=== PATIENT | female | born 1985 | race Caucasian/White ===

== ENCOUNTER 2016-09-27 19:12 | Emergency (ER) | payer OTHER ==
[~2016-09-27] VITALS: Ht 170.2 cm; Wt 101.6 kg
[~2016-09-27 19:12] MED LIST: HYDR-4332 PO; METO-157 PO; NRN100 PO
[2016-09-27 19:18] VITALS: Ht 170.2 cm; Wt 101.6 kg
[2016-09-27] MEDS ORDERED: PROCHLORPERAZINE INJ 10 MG in SYRINGE 8 ML IV STA (19:28)
[2016-09-27] MEDS ORDERED: LORAZEPAM 2 MG/ML 1 ML VIAL IV STA (19:28)
[2016-09-27] MEDS ORDERED: DiphenhydrAMINE HCL 50 MG/ML VIAL IV STA (19:28)
[2016-09-27] MEDS ORDERED: SODIUM CHLORIDE 0.9% 1000ML 1,000 ML IV STA (19:28)
[2016-09-27] MEDS ORDERED: PANTOprazole INJ 80 MG in DEXTROSE 5% 100ML 100 ML IV STA (19:28)
[2016-09-27] MEDS ORDERED: DEXAMETHASONE SOD INJ 10 MG/ML VIAL IV ONE (19:30)
--- NOTE | 2016-09-27 19:38 | EMERGENCY ROOM VISIT NOTE ---
History Report prepared by Inocencia: Willie Tovar Under the Supervision of: Dr. Clement Temple M.D. First contact with patient: 19:21 Chief Complaint: HEADACHE Stated Complaint: MIGRAINE ON 6TH DAY, THROWING UP BLOOD History of Present Illness The patient is a 31 year old female who presents to the Emergency Room with complaints of persistent migraines beginning a few days ago. She notes that her pain is behind her eyes and goes behind the right side of her brain. She notes it feels like "liquid in her head". She states she began vomiting blood today with some clots in the blood. She denies any bleeding or ulcers in the past, and she does not take blood thinners. She admits to having dark stools and weakness, but denies any abdominal pain. Source of History: patient Onset: a few days ago Position: head Quality: other ("feels like liquid in the head") Timing: other (persistent) Associated Symptoms: + vomiting (with blood), + weakness, No abdominal pain Note: The patient admits to having dark stools recently. Review of Systems See HPI for pertinent positives & negatives. A total of 10 systems reviewed and were otherwise negative. Past Medical & Surgical Medical Problems: (1) Anxiety disorder (2) Asthma (3) Cocaine use (4) Illicit drug use (5) Moderate recurrent major depression (6) Ovarian cyst (7) Pituitary adenoma (8) Spondylolisthesis, lumbar region (9) Suicidal ideations (10) Tonsillectomy and adenoidectomy Surgical Problems: (1) History of back surgery (2) History of tubal ligation (3) s p ORIF right tibia fx (4) s p sinus surgery (5) s p tonsillectomy Family History Diabetes mellitus Kidney disease Social History Smoking Status: Current Every Day Smoker Alcohol Use: occasionally Drug Use: none Marital Status: single Housing Status: lives alone Occupation Status: unemployed, disabled Current/Historical Medications Scheduled Bromocriptine Mesylate (Bromocriptine Mesylate), 2.5 MG PO DAILY Bupropion HCl (Bupropion HCl Sr), 150 MG PO BID Cephalexin Monohydrate (Keflex), 500 MG PO QID Citalopram (Citalopram Hydrobromide), 1 TAB PO DAILY Gabapentin (Gabapentin), 300 MG PO TID Ranitidine (Zantac), 150 MG PO BID Scheduled PRN Lorazepam (Lorazepam), 1 MG PO BID PRN for Anxiety Allergies Coded Allergies: Aspirin (Verified Allergy, Severe, SEVERE REACTION TO ANOTHER MEDICATION PT TAKES, 09/12/16) Ranitidine (Verified Allergy, Severe, HIVES, 09/12/16) Ibuprofen (Verified Allergy, Intermediate, rash, 09/12/16) Sulfa Antibiotics (Verified Allergy, Intermediate, HIVES AND ITCHING, ) Clindamycin (Verified Allergy, Unknown, Rash., 09/12/16) Physical Exam Vital Signs Date Time Temp Pulse Resp B/P Pulse Ox O2 Delivery O2 Flow Rate FiO2 09/27/16 20:46 37.1 104 20 99/72 97 09/27/16 19:18 37.1 131 20 107/76 98 Room Air Physical Exam GENERAL: Patient is in no acute distress. HEENT: No acute trauma, normocephalic atraumatic, mucous membranes moist, no nasal congestion, no scleral icterus. Pupils equal and reactive to light. NECK: No stridor, no adenopathy, no meningismus, trachea is midline. LUNGS: Clear to auscultation bilaterally, no wheeze, no rhonchi, breath sounds equal. HEART: Without murmurs gallops or rubs, regular rate and rhythm. ABDOMEN: Soft, mildly tender in the epigastrium, bowel sounds positive, no hernias, no peritonitis. EXTREMITIES: No cyanosis or edema, full range of motion of all the joints without pain or difficulty, no signs for acute trauma. NEUROLOGIC: Oriented x 3, no acute motor or sensory deficits, no focal weakness. No cerebellar deficits. SKIN: No rash, no jaundice, no diaphoresis RECTAL: Brown stool, trace heme positive. Medical Decision & Procedures Laboratory Results 09/27/16 19:42 Red Blood Count 4.54, Mean Corpuscular Volume 87.4, Mean Corpuscular Hemoglobin 28.6, Mean Corpuscular Hemoglobin Concent 32.7, Mean Platelet Volume 10.9, Neutrophils (%) (Auto) 65.5, Lymphocytes (%) (Auto) 27.2, Monocytes (%) (Auto) 3.6, Eosinophils (%) (Auto) 3.1, Basophils (%) (Auto) 0.4, Neutrophils # (Auto) 7.92, Lymphocytes # (Auto) 3.29, Monocytes # (Auto) 0.43, Eosinophils # (Auto) 0.37, Basophils # (Auto) 0.05 09/27/16 19:42 Test 09/27/16 19:42 White Blood Count 12.08 K/uL (4.8-10.8) Red Blood Count 4.54 M/uL (4.2-5.4) Hemoglobin 13.0 g/dL (12.0-16.0) Hematocrit 39.7 % (37-47) Mean Corpuscular Volume 87.4 fL (80-100) Mean Corpuscular Hemoglobin 28.6 pg (25-34) Mean Corpuscular Hemoglobin Concent 32.7 g/dl (32-36) Platelet Count 319 K/uL (130-400) Mean Platelet Volume 10.9 fL (7.4-10.4) Neutrophils (%) (Auto) 65.5 % Lymphocytes (%) (Auto) 27.2 % Monocytes (%) (Auto) 3.6 % Eosinophils (%) (Auto) 3.1 % Basophils (%) (Auto) 0.4 % Neutrophils # (Auto) 7.92 K/uL (1.4-6.5) Lymphocytes # (Auto) 3.29 K/uL (1.2-3.4) Monocytes # (Auto) 0.43 K/uL (0.11-0.59) Eosinophils # (Auto) 0.37 K/uL (0-0.5) Basophils # (Auto) 0.05 K/uL (0-0.2) RDW Standard Deviation 43.7 fL (36.4-46.3) RDW Coefficient of Variation 13.7 % (11.5-14.5) Immature Granulocyte % (Auto) 0.2 % Immature Granulocyte # (Auto) 0.02 K/uL (0.00-0.02) Prothrombin Time 11.2 SECONDS (9.0-12.0) Prothromb Time International Ratio 1.0 (0.9-1.1) Activated Partial Thromboplast Time 29.6 SECONDS (21.0-31.0) Partial Thromboplastin Ratio 1.1 Anion Gap 12.0 mmol/L (3-11) Est Creatinine Clear Calc Drug Dose 114.5 ml/min Estimated GFR () 102.2 Estimated GFR (Non- 88.2 BUN/Creatinine Ratio 7.2 (10-20) Calcium Level 8.9 mg/dl (8.5-10.1) Total Bilirubin 0.2 mg/dl (0.2-1) Aspartate Amino Transf (AST/SGOT) 29 U/L (15-37) Alanine Aminotransferase (ALT/SGPT) 22 U/L (12-78) Alkaline Phosphatase 99 U/L (45-117) Total Protein 6.9 gm/dl (6.4-8.2) Albumin 3.2 gm/dl (3.4-5.0) Globulin 3.7 gm/dl (2.5-4.0) Albumin/Globulin Ratio 0.9 (0.9-2) Laboratory results reviewed by me. Medications Administered Medications (Trade) Dose Ordered Sig/Jesse Route Start Time Stop Time Status Last Admin Dose Admin Prochlorperazine Edisylate/Syringe (Compazine Inj/ Syringe) 10 ml @ 5 mls/min NOW STAT IV 09/27/16 19:28 09/27/16 19:34 DC 09/27/16 20:02 5 MLS/MIN Diphenhydramine HCl 50 mg 50 mg NOW STAT IV 09/27/16 19:28 09/27/16 19:34 DC 09/27/16 20:02 50 MG Sodium Chloride (Nss 1000ml) 1,000 ml @ 999 mls/hr Q1H1M STAT IV 09/27/16 19:28 09/27/16 20:28 DC 09/27/16 20:02 999 MLS/HR Dexamethasone Sodium Phosphate (Decadron Inj) 10 mg NOW ONCE IV 09/27/16 19:30 09/27/16 19:34 DC 09/27/16 20:03 10 MG Lorazepam 0.5 mg 0.5 mg NOW STAT IV 09/27/16 19:28 09/27/16 19:35 DC 09/27/16 20:03 0.5 MG Pantoprazole Sodium/Dextrose (Protonix Inj/D5 100ml) 120 ml @ 400 mls/hr NOW STAT IV 09/27/16 19:28 09/27/16 19:45 DC 09/27/16 20:02 400 MLS/HR Cephalexin Monohydrate (Keflex Cap) 500 mg NOW STAT PO 1/10/17 20:33 09/27/16 20:34 DC 09/27/16 20:44 500 MG ED Course 1922: The patient was evaluated in room C2. A complete history and physical exam was performed. 1927: Ordered Pantoprazole Sodium 80 mg/Dextrose 120 ml @ 400 mls/hr IV, Ativan Inj 0.5 mg IV, NSS 1,000 ml @ 999 mls/hr IV, Benadryl Inj 50 mg IV, and Prochlorperazine Edisylate 10 mg/Syringe 10 ml @ 5 ml/min IV. 1929: Ordered Decadron Inj 10 mg IV. 2029: I reassessed the patient. She thinks she has a urinary infection because it rey during urination and her urine smells bad. 2032: Ordered Keflex Cap 500 mg PO. 2034: The patient now wants to go home without any urine dip. 2039: Reevaluated the patient. Discussed results and discharge instructions: She verbalized understanding and agreement. The patient is ready for discharge. Medical Decision Differentials include Tara/Valentin tear, ulcer, gastritis, dehydration, anemia , electrolyte imbalance, migraine headache, tension headache, meningitis, and intracranial bleed. There is a mild leukocytosis which is often baseline for the patient, no worrisome anemia. No significant electrolyte abnormality, kidney failure or hepatitis. There is no coagulopathy. Rectal exam shows brown stool which is only trace heme-positive. On exam, there were no focal neurologic deficits. The patient was not toxic or febrile. There was no meningismus. The patient received IV saline, IV Compazine, IV Benadryl, IV Decadron and IV Ativan. She feels improved, her heart rate has improved. The patient was complaining of urinary symptoms as well, she's had these for a few days. She refused to give a urine sample and was asking for medication to treat her urinary infection. She actually was asking for discharge. She said that she had to leave and could not stay any longer. The patient was given a dose of oral Keflex, she was given IV Protonix. She is being discharged on Zantac. The patient was also given a prescription for Keflex. She was encouraged to rest and to stay well-hydrated. I suspect that she has a migraine which caused vomiting and then a Tara-Valentin tear. She was instructed to return for worsening symptoms. Impression Primary Impression: Headache Additional Impressions: Hematemesis UTI (urinary tract infection) Scribe Attestation The scribe's documentation has been prepared under my direction and personally reviewed by me in its entirety. I confirm that the note above accurately reflects all work, treatment, procedures, and medical decision making performed by me. Departure Information Dispostion Home / Self-Care Prescriptions Ranitidine (Zantac) 150 Mg Tab 150 MG PO BID for 30 Days, #60 TAB Prov: Clement Temple M.D. 09/27/16 Cephalexin Monohydrate (Keflex) 500 Mg Cap 500 MG PO QID, #20 CAP Prov: Clement Temple M.D. 09/27/16 Referrals No Doctor, Assigned (PCP) Patient Instructions A Signature Page, [facility] Additional Instructions rest fluids sleep zantac 2x per day for 2 weeks return if worsening keflex 4x per day for 5 days lab testing today was all ok use vasoline to the rectal area as we discussed Problem Qualifiers
[2016-09-27 19:50] LABS: BASO % 0.4 %; BASO ABS # 0.05 K/uL (0-0.2); COMPLETE YES; EOS % 3.1 %; HEMATOCRIT 39.7 % (37-47); IG% 0.2 %; LYMPH % 27.2 %; LYMPH ABS # 3.29 K/uL (1.2-3.4); MEAN CELL VOLUME 87.4 fL (80-100); MEAN CORPUSCULAR HEMOGLOBIN 28.6 pg (25-34); MEAN CORPUSCULAR HGB CONC 32.7 g/dl (32-36); MEAN PLATELET VOLUME 10.9 fL (7.4-10.4); MONO % 3.6 %; NEUT % 65.5 %; PLATELET COUNT 319 K/uL (130-400); RED BLOOD COUNT 4.54 M/uL (4.2-5.4); WHITE BLOOD COUNT 12.08 K/uL (4.8-10.8)
[2016-09-27 20:00] LABS: PARTIAL THROMBOPLASTIN RATIO 1.1; PROTHROMBIN TIME (PATIENT) 11.2 SECONDS (9.0-12.0)
[2016-09-27 20:07] LABS: BUN/CREATININE RATIO 7.2 (10-20); CALCIUM 8.9 mg/dl (8.5-10.1); CREATININE 0.88 mg/dl (0.60-1.20); POTASSIUM 3.4 mmol/L (3.5-5.1)
[2016-09-27 20:10] LABS: ALB/GLOB RATIO 0.9 (0.9-2)
[2016-09-27] MEDS ORDERED: CEPHALEXIN MONOHYDRATE 250 MG CAP PO STA (20:33)
[2016-09-27] MEDS ORDERED: ZNTT/150 PO (20:38)
[2016-09-27] MEDS ORDERED: CEPH500C PO (20:38)
[2016-09-27 20:46] VITALS: BP 99/72; PULSE 104; TEMP 37.1; O2SAT 97
[2016-11-28] MEDS ORDERED: CITA40TA4 PO (13:13)
== END 2016-09-27 20:47 | disposition home or self-care (01) ==
LOC: C.EDB 19:14 → C.EDC 20:47
DX: R51 Headache (principal); K92.0 Hematemesis; N39.0 Urinary tract infection, site not specified; F41.9 Anxiety disorder, unspecified; F32.9 Major depressive disorder, single episode, unspecified; N83.209 Unspecified ovarian cyst, unspecified side; J45.909 Unspecified asthma, uncomplicated; F17.200 Nicotine dependence, unspecified, uncomplicated; Z98.51 Tubal ligation status; Z98.890 Other specified postprocedural states; Z88.2 Allergy status to sulfonamides; Z88.6 Allergy status to analgesic agent; Z88.8 Allergy status to other drugs, medicaments and biological substances

== ENCOUNTER 2016-10-05 22:48 | Emergency (ER) | payer OTHER ==
[~2016-10-05] VITALS: Ht 170.2 cm; Wt 105.0 kg
[~2016-10-05 22:48] MED LIST changes: +CEPH500C PO; -HYDR-4332 PO; -METO-157 PO; +ZNTT/150 PO
[2016-10-05 22:49] VITALS: TEMP 36.7; Ht 170.2 cm; Wt 105.0 kg
[2016-10-05] MEDS ORDERED: ONDANSETRON INJ 2 MG/ML 2 ML VIAL IV STA (22:56)
[2016-10-05] MEDS ORDERED: SODIUM CHLORIDE 0.9% 1000ML 1,000 ML IV STA (22:56)
--- NOTE | 2016-10-05 23:13 | EMERGENCY ROOM VISIT NOTE ---
History Report prepared by Inocencia: Hannah uPente Under the Supervision of: Dr. Tutu Her D.O. First contact with patient: 22:51 Chief Complaint: RECTAL BLEEDING Stated Complaint: RECTAL BLEEDING, VOMITING BLOOD Nursing Triage Summary: patient states for past two weeks she has had episodes of bright red blood in her stool and vomiting blood. patient states she was seen here two weeks ago for same complaints. also having abdominal cramping. History of Present Illness The patient is a 31 year old female who presents to the Emergency Room with complaints of intermittent rectal bleeding for the past two weeks. She reports episodes of bright red blood in her stool. Today her bowel movements were just blood, without any stool present. She is also experiencing nausea, vomiting, hematemesis, ear pain, and back pain. She has had a migraine for the past two weeks that has been constant. The patient was evaluated in the ED two weeks ago for her headache. She was treated for a UTI at that time and discharged home. The patient had a colonoscopy two years ago. She denies taking any NSAIDs recently. Her LNMP was 2 weeks ago. Source of History: patient Onset: 2 weeks ago Position: other (rectum) Quality: other (bleeding) Timing: intermittent Associated Symptoms: + back pain, + headache, + nausea, + vomiting (with hematemesis) Review of Systems See HPI for pertinent positives & negatives. A total of 10 systems reviewed and were otherwise negative. Past Medical & Surgical Medical Problems: (1) Anxiety disorder (2) Asthma (3) Cocaine use (4) Illicit drug use (5) Moderate recurrent major depression (6) Ovarian cyst (7) Pituitary adenoma (8) Spondylolisthesis, lumbar region (9) Suicidal ideations (10) Tonsillectomy and adenoidectomy Surgical Problems: (1) History of back surgery (2) History of tubal ligation (3) s p ORIF right tibia fx (4) s p sinus surgery (5) s p tonsillectomy Family History Diabetes mellitus Kidney disease Social History Smoking Status: Current Every Day Smoker Alcohol Use: occasionally Drug Use: none Marital Status: single Housing Status: lives alone Occupation Status: unemployed, disabled Current/Historical Medications Scheduled Bromocriptine Mesylate (Bromocriptine Mesylate), 2.5 MG PO DAILY Bupropion HCl (Bupropion HCl Sr), 150 MG PO BID Cephalexin Monohydrate (Keflex), 500 MG PO QID Citalopram (Citalopram Hydrobromide), 1 TAB PO DAILY Gabapentin (Gabapentin), 300 MG PO TID Pantoprazole (Protonix), 40 MG PO DAILY Scheduled PRN Lorazepam (Lorazepam), 1 MG PO BID PRN for Anxiety Allergies Coded Allergies: Aspirin (Verified Allergy, Severe, SEVERE REACTION TO ANOTHER MEDICATION PT TAKES, 10/05/16) Ranitidine (Verified Allergy, Severe, HIVES, 10/05/16) Ibuprofen (Verified Allergy, Intermediate, rash, 10/05/16) Sulfa Antibiotics (Verified Allergy, Intermediate, HIVES AND ITCHING, 10/05) Clindamycin (Verified Allergy, Unknown, Rash., 09/12/16) Physical Exam Vital Signs Date Time Temp Pulse Resp B/P Pulse Ox O2 Delivery O2 Flow Rate FiO2 10/06/16 01:40 73 20 119/63 98 10/06/16 00:45 94 20 129/82 98 Room Air 10/05/16 23:00 112 10/05/16 22:49 36.7 100 20 127/90 98 Room Air Physical Exam GENERAL: Patient is awake, alert, and in no acute distress. Patient is resting comfortably and showing no signs of anxiety EYES: The conjunctivae are clear. The pupils are round and reactive. EARS, NOSE, MOUTH AND THROAT: The nose is without any evidence of any deformity. Mucous membranes are moist tongue is midline NECK: The neck is nontender and supple. RESPIRATORY: Normal respiratory effort is noted there is no evidence of wheezing rhonchi or rales CARDIOVASCULAR: Tachycardic rate and regular rhythm noted there no murmurs rubs or gallops normal S1 normal S2 GASTROINTESTINAL: The abdomen is soft. Bowel sounds are present in all quadrants. Abdomen is nontender RECTAL: Light brown stool, heme-negative. MUSCULOSKELETAL/EXTREMITIES: There is no evidence of gross deformity full range of motion is noted in the hips and shoulders SKIN: There is no obvious evidence of any rash. There are no petechiae, pallor or cyanosis noted. NEUROLOGIC: Patient is awake alert and oriented x3 Medical Decision & Procedures ER Provider Diagnostic Interpretation: 2-view x-ray of the abdomen as interpreted by myself reveals no acute infiltrate , no free air, non-specific bowel-gas pattern, no signs of obstruction. Laboratory Results 10/05/16 23:30 Red Blood Count 4.45, Mean Corpuscular Volume 87.2, Mean Corpuscular Hemoglobin 29.0, Mean Corpuscular Hemoglobin Concent 33.2, Mean Platelet Volume 11.2, Neutrophils (%) (Auto) 68.3, Lymphocytes (%) (Auto) 24.5, Monocytes (%) (Auto) 3.6, Eosinophils (%) (Auto) 3.0, Basophils (%) (Auto) 0.3, Neutrophils # (Auto) 9.00, Lymphocytes # (Auto) 3.22, Monocytes # (Auto) 0.47, Eosinophils # (Auto) 0.39, Basophils # (Auto) 0.04 10/05/16 23:30 Test 10/05/16 23:30 10/06/16 00:00 White Blood Count 13.16 K/uL (4.8-10.8) Red Blood Count 4.45 M/uL (4.2-5.4) Hemoglobin 12.9 g/dL (12.0-16.0) Hematocrit 38.8 % (37-47) Mean Corpuscular Volume 87.2 fL (80-100) Mean Corpuscular Hemoglobin 29.0 pg (25-34) Mean Corpuscular Hemoglobin Concent 33.2 g/dl (32-36) Platelet Count 278 K/uL (130-400) Mean Platelet Volume 11.2 fL (7.4-10.4) Neutrophils (%) (Auto) 68.3 % Lymphocytes (%) (Auto) 24.5 % Monocytes (%) (Auto) 3.6 % Eosinophils (%) (Auto) 3.0 % Basophils (%) (Auto) 0.3 % Neutrophils # (Auto) 9.00 K/uL (1.4-6.5) Lymphocytes # (Auto) 3.22 K/uL (1.2-3.4) Monocytes # (Auto) 0.47 K/uL (0.11-0.59) Eosinophils # (Auto) 0.39 K/uL (0-0.5) Basophils # (Auto) 0.04 K/uL (0-0.2) RDW Standard Deviation 43.8 fL (36.4-46.3) RDW Coefficient of Variation 13.7 % (11.5-14.5) Immature Granulocyte % (Auto) 0.3 % Immature Granulocyte # (Auto) 0.04 K/uL (0.00-0.02) Prothrombin Time 10.5 SECONDS (9.0-12.0) Prothromb Time International Ratio 1.0 (0.9-1.1) Activated Partial Thromboplast Time 29.3 SECONDS (21.0-31.0) Partial Thromboplastin Ratio 1.1 Anion Gap 11.0 mmol/L (3-11) Est Creatinine Clear Calc Drug Dose 134.9 ml/min Estimated GFR () 122.0 Estimated GFR (Non- 105.3 BUN/Creatinine Ratio 10.3 (10-20) Calcium Level 8.7 mg/dl (8.5-10.1) Total Bilirubin 0.1 mg/dl (0.2-1) Direct Bilirubin < 0.1 mg/dl (0-0.2) Aspartate Amino Transf (AST/SGOT) 12 U/L (15-37) Alanine Aminotransferase (ALT/SGPT) 11 U/L (12-78) Alkaline Phosphatase 90 U/L (45-117) Total Protein 6.4 gm/dl (6.4-8.2) Albumin 3.0 gm/dl (3.4-5.0) Lipase 142 U/L (73-393) Human Chorionic Gonadotropin, Qual NEG (NEG) Urine Color YELLOW Urine Appearance CLEAR (CLEAR) Urine pH 5.0 (4.5-7.5) Urine Specific [place] 1.008 (1.000-1.030) Urine Protein NEG (NEG) Urine Glucose (UA) NEG (NEG) Urine Ketones NEG (NEG) Urine Occult Blood NEG (NEG) Urine Nitrite POS (NEG) Urine Bilirubin NEG (NEG) Urine Urobilinogen NEG (NEG) Urine Leukocyte Esterase SMALL (NEG) Urine WBC (Auto) 10-30 /hpf (0-5) Urine RBC (Auto) 0-4 /hpf (0-4) Urine Hyaline Casts (Auto) 1-5 /lpf (0-5) Urine Epithelial Cells (Auto) >30 /lpf (0-5) Urine Bacteria (Auto) 4+ (NEG) Laboratory results per my review. Medications Administered Medications (Trade) Dose Ordered Sig/Jesse Route Start Time Stop Time Status Last Admin Dose Admin Sodium Chloride (Nss 1000ml) 1,000 ml @ 999 mls/hr Q1H1M STAT IV 10/05/16 22:56 10/05/16 23:56 DC 10/05/16 23:24 999 MLS/HR Ondansetron HCl (Zofran Inj) 4 mg NOW STAT IV 10/05/16 22:56 10/05/16 22:57 DC 10/05/16 23:24 4 MG Ceftriaxone Sodium (Rocephin Inj) 1 gm NOW STAT IV 10/06/16 00:56 10/06/16 00:57 DC 10/06/16 01:08 1 GM Pantoprazole Sodium (Protonix Tab) 40 mg NOW STAT PO 10/06/16 00:56 10/06/16 00:57 DC 10/06/16 01:08 40 MG ED Course 2251: The patient was evaluated in room C11B. A complete history and physical examination were performed. 2256: Zofran 4 mg IV, NSS 1000 ml @ 999 mls/hr IV 0056: Protonix 40 mg PO, Rocephin 1 gm IV 0100: I reassessed the patient at this time. She is feeling better and resting comfortably. I discussed the results and treatment plan with the patient. I answered all pertaining questions that she had. She expressed understanding and verbalized agreement. The patient will be discharged home. Medical Decision Differential diagnosis: Etiologies such as diverticulosis, AVM, coagulopathy, colitis, inflammatory bowel disease, malignancy, Tara-Valentin tear, esophagitis, peptic ulcer disease , variceal bleed, gastritis, epistaxis, fissure, hemorrhoids, as well as others were entertained. Nursing notes reviewed. Patient's previous electronic medical records reviewed. The patient is a 31-year-old female who presented to emergency department for multiple complaints. She complained of abdominal pain and rectal bleeding blood in her vomit headache as well as low back pain. The patient was seen in our facility for similar complaints recently. On physical exam she did not have any signs of rectal bleeding. She was mildly tachycardic but she was not anemic. She was found have signs of urinary tract infection on urinalysis. She states that she was told she had a urinary tract infection on her previous visit but states she was not given an antibiotic. It would appear that she may have not fill this prescription. I discussed the patient's laboratory and radiographic studies with her. She was treated with IV fluids as well as IV antiemetics. She was also given IV antibiotics. She was encouraged to rest and avoid any strenuous activity. She was encouraged to call her primary care physician to schedule follow-up appointment. She was also encouraged to return to the emergency department immediately if symptoms change worsen or the need arises. Impression Primary Impression: Rectal bleeding Additional Impression: UTI (urinary tract infection) Scribe Attestation The scribe's documentation has been prepared under my direction and personally reviewed by me in its entirety. I confirm that the note above accurately reflects all work, treatment, procedures, and medical decision making performed by me. Departure Information Dispostion Home / Self-Care Prescriptions Pantoprazole (Protonix) 40 Mg Tab 40 MG PO DAILY, #30 TAB Prov: Tutu Her, DO 10/06/16 Cephalexin Monohydrate (KEFLEX) 500 Mg Cap 500 MG PO QID, #28 CAP Prov: Tutu Her, DO 10/06/16 Referrals Yamel Beavers D.O. (PCP) Vel Wang MD Forms HOME CARE DOCUMENTATION FORM, IMPORTANT VISIT INFORMATION, WORK / SCHOOL INSTRUCTIONS Patient Instructions GI Bleeding - [facility], [facility], Urinary Tract Infection - [facility] Problem Qualifiers Additional Impression: UTI (urinary tract infection) Urinary tract infection type: site unspecified Hematuria presence: without hematuria Qualified Codes: N39.0 - Urinary tract infection, site not specified
[2016-10-05] MEDS ORDERED: ZNTT/150 PO (23:29)
[2016-10-05 23:48] LABS: BASO % 0.3 %; BASO ABS # 0.04 K/uL (0-0.2); COMPLETE YES; HEMATOCRIT 38.8 % (37-47); IG% 0.3 %; LYMPH % 24.5 %; LYMPH ABS # 3.22 K/uL (1.2-3.4); MEAN CELL VOLUME 87.2 fL (80-100); MEAN CORPUSCULAR HGB CONC 33.2 g/dl (32-36); MEAN PLATELET VOLUME 11.2 fL (7.4-10.4); MONO % 3.6 %; NEUT % 68.3 %; PLATELET COUNT 278 K/uL (130-400); RED BLOOD COUNT 4.45 M/uL (4.2-5.4); WHITE BLOOD COUNT 13.16 K/uL (4.8-10.8)
[2016-10-06 00:02] LABS: PARTIAL THROMBOPLASTIN RATIO 1.1; PROTHROMBIN TIME (PATIENT) 10.5 SECONDS (9.0-12.0)
[2016-10-06 00:09] LABS: ALT/SGPT 11 U/L (12-78); BLOOD UREA NITROGEN 8 mg/dl (7-18); BUN/CREATININE RATIO 10.3 (10-20); CALCIUM 8.7 mg/dl (8.5-10.1); CARBON DIOXIDE 23 mmol/L (21-32); CHLORIDE 107 mmol/L (98-107); CREATININE 0.76 mg/dl (0.60-1.20); GLUCOSE 92 mg/dl (70-99); POTASSIUM 3.9 mmol/L (3.5-5.1); SODIUM 141 mmol/L (136-145)
[2016-10-06 00:11] LABS: ALKALINE PHOSPHATASE 90 U/L (45-117); AST/SGOT 12 U/L (15-37)
[2016-10-06 00:27] LABS: PREG INTERNAL NEGATIVE QC NEG CLEAR BACKGROUND; PREG INTERNAL POSITIVE QC POS CONTROL LINE
[2016-10-06 00:42] LABS: URINE APPEARANCE CLEAR (CLEAR); URINE BILIRUBIN NEG (NEG); URINE COLOR YELLOW; URINE EPITHELIAL CELL AUTO >30 /lpf (0-5); URINE NITRITE POS (NEG); URINE SPECIFIC GRAVITY 1.008 (1.000-1.030); UROBILINOGEN NEG (NEG)
[2016-10-06 00:51] LABS: MANUAL MICROSCOPIC REQUIRED? NO; REVIEW REQ? NO
[2016-10-06] MEDS ORDERED: CEFTRIAXONE SOD INJ 1 GM ADDVIAL IV STA (00:56)
[2016-10-06] MEDS ORDERED: PANTOprazole SOD 40 MG TAB PO STA (00:56)
[2016-10-06] MEDS ORDERED: PANT40TA PO (01:21)
[2016-10-06] MEDS ORDERED: CEPH500C2 PO (01:21)
[2016-10-06 01:40] VITALS: BP 119/63; PULSE 73; O2SAT 98
--- NOTE | 2016-10-06 07:19 | DIAGNOSTIC IMAGING REPORT ---
PA CHEST WITH ABDOMINAL SERIES CLINICAL HISTORY: Generalized abdominal pain of 2 weeks duration. FINDINGS: A PA chest radiograph is compared to study dated 09/12/2016. The cardiomediastinal silhouette is unremarkable. There are low lung volumes with bibasilar atelectasis. The lungs and pleural spaces are otherwise clear. No pneumothorax is seen. The bony thorax is grossly intact. Supine and erect abdominal radiographs are compared to study dated 09/12/2016. There is a nonobstructed abdominal bowel gas pattern noting mild to moderate colonic fecal retention. No intraperitoneal free air is seen. There is no radiographic evidence of nephrolithiasis. Numerous phleboliths are seen in the pelvis. There are postoperative changes from L5 to S1 spinal fusion. The lumbosacral spine and bony pelvis appear intact. IMPRESSION: 1. Low lung volumes with no active disease in the chest. 2. Nonobstructed abdominal bowel gas pattern noting mild to moderate colonic fecal retention. Electronically signed by: Clement Rahman M.D. 10/06/2016 7:17 AM Dictated Date/Time: 10/06/2016 7:15 AM
[2016-11-28] MEDS ORDERED: CITA40TA4 PO (13:13)
== END 2016-10-06 01:42 | disposition home or self-care (01) ==
LOC: EDBD 22:48 → C.EDC 22:50
DX: K62.5 Hemorrhage of anus and rectum (principal); N39.0 Urinary tract infection, site not specified; F41.9 Anxiety disorder, unspecified; R11.2 Nausea with vomiting, unspecified; F33.1 Major depressive disorder, recurrent, moderate; G43.909 Migraine, unspecified, not intractable, without status migrainosus; F17.200 Nicotine dependence, unspecified, uncomplicated; Z86.39 Personal history of other endocrine, nutritional and metabolic disease

== ENCOUNTER 2016-11-01 15:23 | Emergency (ER) | payer OTHER ==
[~2016-11-01] VITALS: Ht 170.2 cm; Wt 102.4 kg
[~2016-11-01 15:23] MED LIST changes: -CEPH500C PO; +CEPH500C2 PO; +PANT40TA PO; -ZNTT/150 PO
[2016-11-01 15:39] VITALS: TEMP 37; Ht 170.2 cm; Wt 102.4 kg
[2016-11-01] MEDS ORDERED: SODIUM CHLORIDE 0.9% 1000ML 1,000 ML IV ONE (17:21)
[2016-11-01] MEDS ORDERED: SODIUM CHLORIDE 0.9% 1000ML 1,000 ML IV STA (17:21)
--- NOTE | 2016-11-01 17:23 | EMERGENCY ROOM VISIT NOTE ---
History Report prepared by Inocencia: Willie Tovar Under the Supervision of: Dr. Willie Camargo M.D. First contact with patient: 17:08 Chief Complaint: ABDOMINAL PAIN Stated Complaint: WEAK, BLEEDING FROM RECTUM, SEIZURE ACTIVITY Nursing Triage Summary: Patient states she had a really high fever this morning (didn't take temp, but knows it was high), C/o mouth being dry and dots everywhere. "massive red blood in by bowell and a mucous" Getting worse in the past few days, stool is soft. Denies Hemmorhoid history. Nausea/vomiting on way here. History of Present Illness The patient is a 31 year old female who presents to the Emergency Room with complaints of persistent rectal bleeding beginning about 1 month ago. She notes there has been blood in her stool in each bowel movement for a month, and states today her stools consisted only of blood. The patient reports having global weakness last night, then started shaking before passing out. She notes being confused and vomiting when she came to. The patient reports having a subjective fever, chest pain, abdominal pain which feels like menstrual cramps, blood in her urine last night, and rectal pain. She states she feels achy all over. She denies having any vaginal bleeding or constipation. The patient reports her last menstrual period was 2 weeks ago, and she denies any chance of . She also denies any past abdominal surgeries, but admits to a history of back surgery. Source of History: patient, spouse/significant other Onset: about 1 month ago Position: other (rectum) Quality: other (rectal bleeding) Timing: other (persistent) Associated Symptoms: + LOC (last night), + abdominal pain, + chest pain, + fevers, + nausea, + urinary symptoms (blood in urine), + vomiting, + weakness Note: The patient reports having rectal pain. She denies any vaginal bleeding or constipation. Review of Systems See HPI for pertinent positives & negatives. A total of 10 systems reviewed and were otherwise negative. Past Medical & Surgical Medical Problems: (1) Anxiety disorder (2) Asthma (3) Cocaine use (4) Illicit drug use (5) Moderate recurrent major depression (6) Ovarian cyst (7) Pituitary adenoma (8) Spondylolisthesis, lumbar region (9) Suicidal ideations (10) Tonsillectomy and adenoidectomy Surgical Problems: (1) History of back surgery (2) History of tubal ligation (3) s p ORIF right tibia fx (4) s p sinus surgery (5) s p tonsillectomy Old medical records were reviewed. Nurse's notes were reviewed and I agree with. Family History Diabetes mellitus Kidney disease Social History Smoking Status: Current Every Day Smoker Alcohol Use: occasionally Drug Use: none Marital Status: single Housing Status: lives alone Occupation Status: unemployed, disabled Current/Historical Medications Scheduled Bromocriptine Mesylate (Bromocriptine Mesylate), 2.5 MG PO DAILY Bupropion HCl (Bupropion HCl Sr), 150 MG PO BID Citalopram (Citalopram Hydrobromide), 1 TAB PO DAILY Gabapentin (Gabapentin), 300 MG PO TID Scheduled PRN Lorazepam (Lorazepam), 1 MG PO BID PRN for Anxiety Allergies Coded Allergies: Aspirin (Verified Allergy, Severe, SEVERE REACTION TO ANOTHER MEDICATION PT TAKES, 11/01/16) Ranitidine (Verified Allergy, Severe, HIVES, 11/01/16) Ibuprofen (Verified Allergy, Intermediate, rash, 11/01/16) Sulfa Antibiotics (Verified Allergy, Intermediate, HIVES AND ITCHING, 11/01) Clindamycin (Verified Allergy, Unknown, Rash., 11/01/16) Physical Exam Vital Signs Date Time Temp Pulse Resp B/P Pulse Ox O2 Delivery O2 Flow Rate FiO2 11/01/16 18:50 88 18 113/76 99 Room Air 11/01/16 17:40 94 18 100/82 97 Room Air 11/01/16 15:39 37.0 108 16 106/71 98 Room Air Physical Exam General: Non ill appearing young female. Well developed well nourished in no acute distress, breathing comfortably on room air. Normal speech HEENT: Normal cephalic atraumatic. Pupils are equal round and reactive to light. Extraocular movements are intact. Oropharynx is pink with moist mucous membranes. No swelling of the mouth lips or tongue. Neck: Supple with a midline trachea. No meningeal signs or stiffness, no JVD or bruits. No Stridor. Chest: Clear to auscultation bilaterally. No wheezes or rhonchi. No increased work of breathing. Heart: regular rate and rhythm. Abdomen: Minimal tenderness in the lower abdomen. Rectal: Patient declined Extremities: No cyanosis clubbing or edema. No calf tenderness or assymetry Spine/Back. Non tender to palpation. No CVA tenderness Skin: Good turgor without rashes. Neurologic exam: Cranial nerves two through 12 are intact. Motor and sensation are intact and symmetrical throughout. Medical Decision & Procedures ER Provider Diagnostic Interpretation: X-ray results as stated below per interpretation by me and the radiologist: CHEST ONE VIEW PORTABLE FINDINGS: Lung volumes are mildly diminished. There is no pneumothorax or pleural effusion. No consolidation is present. Cardiac size is at the upper limits of normal. IMPRESSION: 1. No acute findings. 2. Mildly diminished lung volumes. Electronically signed by: Calvin Ivory M.D. 11/01/2016 6:07 PM Dictated Date/Time: 11/01/2016 6:06 PM Laboratory Results 11/01/16 17:35 Red Blood Count 4.65, Mean Corpuscular Volume 85.8, Mean Corpuscular Hemoglobin 28.8, Mean Corpuscular Hemoglobin Concent 33.6, Mean Platelet Volume 10.7, Neutrophils (%) (Auto) 68.2, Lymphocytes (%) (Auto) 25.1, Monocytes (%) (Auto) 4.1, Eosinophils (%) (Auto) 2.1, Basophils (%) (Auto) 0.3, Neutrophils # (Auto) 8.26, Lymphocytes # (Auto) 3.05, Monocytes # (Auto) 0.50, Eosinophils # (Auto) 0.26, Basophils # (Auto) 0.04 11/01/16 17:35 Test 11/01/16 17:35 11/01/16 17:50 White Blood Count 12.13 K/uL (4.8-10.8) Red Blood Count 4.65 M/uL (4.2-5.4) Hemoglobin 13.4 g/dL (12.0-16.0) Hematocrit 39.9 % (37-47) Mean Corpuscular Volume 85.8 fL (80-100) Mean Corpuscular Hemoglobin 28.8 pg (25-34) Mean Corpuscular Hemoglobin Concent 33.6 g/dl (32-36) Platelet Count 269 K/uL (130-400) Mean Platelet Volume 10.7 fL (7.4-10.4) Neutrophils (%) (Auto) 68.2 % Lymphocytes (%) (Auto) 25.1 % Monocytes (%) (Auto) 4.1 % Eosinophils (%) (Auto) 2.1 % Basophils (%) (Auto) 0.3 % Neutrophils # (Auto) 8.26 K/uL (1.4-6.5) Lymphocytes # (Auto) 3.05 K/uL (1.2-3.4) Monocytes # (Auto) 0.50 K/uL (0.11-0.59) Eosinophils # (Auto) 0.26 K/uL (0-0.5) Basophils # (Auto) 0.04 K/uL (0-0.2) RDW Standard Deviation 45.0 fL (36.4-46.3) RDW Coefficient of Variation 14.4 % (11.5-14.5) Immature Granulocyte % (Auto) 0.2 % Immature Granulocyte # (Auto) 0.02 K/uL (0.00-0.02) Urine Color YELLOW Urine Appearance CLEAR (CLEAR) Urine pH 7.0 (4.5-7.5) Urine Specific [place] 1.004 (1.000-1.030) Urine Protein NEG (NEG) Urine Glucose (UA) NEG (NEG) Urine Ketones NEG (NEG) Urine Occult Blood NEG (NEG) Urine Nitrite NEG (NEG) Urine Bilirubin NEG (NEG) Urine Urobilinogen NEG (NEG) Urine Leukocyte Esterase NEG (NEG) Urine Test NEG (NEG) Anion Gap 10.0 mmol/L (3-11) Est Creatinine Clear Calc Drug Dose 129.7 ml/min Estimated GFR () 118.2 Estimated GFR (Non- 102.0 BUN/Creatinine Ratio 10.6 (10-20) Calcium Level 8.4 mg/dl (8.5-10.1) Total Bilirubin 0.2 mg/dl (0.2-1) Direct Bilirubin < 0.1 mg/dl (0-0.2) Aspartate Amino Transf (AST/SGOT) 12 U/L (15-37) Alanine Aminotransferase (ALT/SGPT) 16 U/L (12-78) Alkaline Phosphatase 85 U/L (45-117) Total Protein 6.8 gm/dl (6.4-8.2) Albumin 3.3 gm/dl (3.4-5.0) Lipase 144 U/L (73-393) Bedside Troponin I 0.000 ng/ml (0-0.045) Laboratory studies as stated above per my review. Medications Administered Medications (Trade) Dose Ordered Sig/Jesse Route Start Time Stop Time Status Last Admin Dose Admin Sodium Chloride 1,000 ml @ 999 mls/hr Q1H1M STAT IV 11/01/16 17:21 11/01/16 18:21 DC 11/01/16 17:21 999 MLS/HR Sodium Chloride (Nss 1000ml) 1,000 ml @ 150 mls/hr Q6H40M ONCE IV 11/01/16 17:21 11/01/16 21:05 DC 11/01/16 17:21 150 MLS/HR Lorazepam (Ativan Inj) 1 mg NOW STAT IV 11/01/16 18:39 11/01/16 18:40 DC 11/01/16 18:52 1 MG ECG Indication: abdominal pain Rate (beats per minute): 98 Rhythm: normal sinus Findings: no acute ischemic change, no ectopy, other (LVH; nonspecific T wave abnormality) Comparison ECG Date: August 19, 2016 Change: Nonspecific T wave abnormality improved. ED Course 171: Past medical records reviewed. The patient was evaluated in room B10, and a complete history and physical examination were performed. 1721: Ordered NSS 1,000 ml @ 150 mls/hr IV, and NSS 1,000 ml @ 999 mls/hr IV. 1830: The patient requested something for her body shakes. 183: Ordered Ativan Inj 1 mg IV. 0: Upon reevaluation, the patient eloped without telling us and was unable to give discharge instructions Medical Decision Differentials include GI bleed, anemia, infection, colitis, arrhythmia, and electrolyte or metabolic abnormality. This patient comes in as described above she has multiple different complaints. She is complaining of rectal bleeding. She's had similar abdominal pain and she felt strange last night as well. She is afebrile at present. She looks well and she has stable vital signs. IV access was established and she was hydrated with IV normal saline. She asked for something for muscle spasms and was given Ativan 1 mg IV. She is not driving. Her white count is minimally elevated. She has nothing to suggest infection. Her abdomen does not have peritonitis or surgical findings. Her hemoglobin is normal .she is not . She has no acute electrode or metabolic abnormalities. She has nothing to suggest infection or liver or gallbladder abnormalities. I did order a CAT scan of her abdomen to rule out colitis and other etiologies as she had multiple different complaints. The patient was agreeable with this. Later however, the nurse called me and told me she declined and wanted to go home. I went to go discuss this with the patient and she had pulled her IV and eloped without notifying us. I was unable to perform the rectal exam do any further assessment because she left without telling us. Further workup is unavailable due to her leaving. Impression Primary Impression: Rectal bleeding Additional Impression: Lower abdominal pain Scribe Attestation The scribe's documentation has been prepared under my direction and personally reviewed by me in its entirety. I confirm that the note above accurately reflects all work, treatment, procedures, and medical decision making performed by me. Departure Information Dispostion Against Medical Advice Referrals No Doctor, Assigned (PCP) Patient Instructions My [facility] Additional Instructions Rest. Drink plenty of fluids. Return if: Increasing pain, fever chills, worsening of symptoms, increasing bleeding, any new problems or concerns Follow-up with doctor this week for recheck. Problem Qualifiers
[2016-11-01 17:53] LABS: BASO % 0.3 %; BASO ABS # 0.04 K/uL (0-0.2); COMPLETE YES; EOS % 2.1 %; HEMATOCRIT 39.9 % (37-47); IG% 0.2 %; LYMPH % 25.1 %; LYMPH ABS # 3.05 K/uL (1.2-3.4); MEAN CELL VOLUME 85.8 fL (80-100); MEAN CORPUSCULAR HEMOGLOBIN 28.8 pg (25-34); MEAN CORPUSCULAR HGB CONC 33.6 g/dl (32-36); MEAN PLATELET VOLUME 10.7 fL (7.4-10.4); MONO % 4.1 %; NEUT % 68.2 %; PLATELET COUNT 269 K/uL (130-400); RED BLOOD COUNT 4.65 M/uL (4.2-5.4); WHITE BLOOD COUNT 12.13 K/uL (4.8-10.8)
[2016-11-01 18:02] LABS: URINE APPEARANCE CLEAR (CLEAR); URINE BILIRUBIN NEG (NEG); URINE COLOR YELLOW; URINE NITRITE NEG (NEG); URINE SPECIFIC GRAVITY 1.004 (1.000-1.030); UROBILINOGEN NEG (NEG)
[2016-11-01 18:07] LABS: BLOOD UREA NITROGEN 8 mg/dl (7-18); BUN/CREATININE RATIO 10.6 (10-20); CALCIUM 8.4 mg/dl (8.5-10.1); CARBON DIOXIDE 23 mmol/L (21-32); CHLORIDE 110 mmol/L (98-107); CREATININE 0.78 mg/dl (0.60-1.20); GLUCOSE 77 mg/dl (70-99); POTASSIUM 3.8 mmol/L (3.5-5.1); SODIUM 143 mmol/L (136-145)
[2016-11-01 18:08] LABS: MANUAL MICROSCOPIC REQUIRED? NO; REVIEW REQ? NO
--- NOTE | 2016-11-01 18:08 | DIAGNOSTIC IMAGING REPORT ---
CHEST ONE VIEW PORTABLE CLINICAL HISTORY: Chest pain. Weakness. COMPARISON STUDY: Chest radiograph October 05, 2016. FINDINGS: Lung volumes are mildly diminished. There is no pneumothorax or pleural effusion. No consolidation is present. Cardiac size is at the upper limits of normal. IMPRESSION: 1. No acute findings. 2. Mildly diminished lung volumes. Electronically signed by: Calvin Ivory M.D. 11/01/2016 6:07 PM Dictated Date/Time: 11/01/2016 6:06 PM
[2016-11-01 18:10] LABS: ALKALINE PHOSPHATASE 85 U/L (45-117); ALT/SGPT 16 U/L (12-78); AST/SGOT 12 U/L (15-37)
[2016-11-01] MEDS ORDERED: LORAZEPAM 2 MG/ML 1 ML VIAL IV STA (18:39)
[2016-11-01] MEDS ORDERED: OPTIRAY 320 IV PRN (18:45)
[2016-11-01 18:50] VITALS: BP 113/76; PULSE 88; O2SAT 99
[2016-11-28] MEDS ORDERED: CITA40TA4 PO (13:13)
== END 2016-11-01 19:34 | disposition home or self-care (01) ==
LOC: C.EDB 15:24
DX: K62.5 Hemorrhage of anus and rectum (principal); R10.30 Lower abdominal pain, unspecified; F41.9 Anxiety disorder, unspecified; J45.909 Unspecified asthma, uncomplicated; F33.1 Major depressive disorder, recurrent, moderate; F17.200 Nicotine dependence, unspecified, uncomplicated; Z88.2 Allergy status to sulfonamides; Z88.6 Allergy status to analgesic agent; Z88.8 Allergy status to other drugs, medicaments and biological substances; Z88.1 Allergy status to other antibiotic agents; Z83.3 Family history of diabetes mellitus

== ENCOUNTER 2016-11-28 20:54 | Emergency (ER) | payer OTHER ==
[~2016-11-28 20:54] MED LIST changes: -CEPH500C2 PO; +CITA40TA4 PO; -PANT40TA PO
[2016-11-28 21:07] VITALS: Ht 165.1 cm
[2016-11-28] MEDS ORDERED: ACETAMINOPHEN 500 MG TAB PO STA (21:34)
[2016-11-28] MEDS ORDERED: PRLD25 PO (21:34)
[2016-11-28] MEDS ORDERED: WLLSR150 PO (21:34)
[2016-11-28] MEDS ORDERED: ATV1 PO (21:34)
[2016-11-28] MEDS ORDERED: GABA1CAP4 PO (21:41)
--- NOTE | 2016-11-28 21:42 | EMERGENCY ROOM VISIT NOTE ---
History Report prepared by Inocencia: Donald Boyce Under the Supervision of: Dr. Devan Martin D.O. First contact with patient: 21:27 Chief Complaint: ABDOMINAL PAIN Stated Complaint: ABD PAIN History of Present Illness The patient is a 31 year old female who presents to the Emergency Room with complaints of a persistent fever beginning yesterday. She states that she believes that she passed a kidney stone last night. She states that she may have passed out shortly afterwards as well. The patient also complains of a headache, a productive cough, and vomiting. She believes she may have pneumonia as well. She denies any diarrhea. The patient denies any known sick contacts. She has not had a flu shot this year, but had a pneumonia shot. Source of History: patient Onset: yesterday Quality: other (fever) Timing: other (persistent) Associated Symptoms: + cough (productive), + headache, + vomiting, No diarrhea Review of Systems See HPI for pertinent positives and negatives. A total of ten systems were reviewed and were otherwise negative. Past Medical & Surgical Medical Problems: (1) Anxiety disorder (2) Asthma (3) Cocaine use (4) Illicit drug use (5) Moderate recurrent major depression (6) Ovarian cyst (7) Pituitary adenoma (8) Spondylolisthesis, lumbar region (9) Suicidal ideations (10) Tonsillectomy and adenoidectomy Surgical Problems: (1) History of back surgery (2) History of tubal ligation (3) s p ORIF right tibia fx (4) s p sinus surgery (5) s p tonsillectomy Family History Diabetes mellitus Kidney disease Social History Smoking Status: Current Every Day Smoker Alcohol Use: occasionally Drug Use: none Marital Status: single Housing Status: lives alone Occupation Status: unemployed, disabled Current/Historical Medications Scheduled Bromocriptine Mesylate (Bromocriptine Mesylate), 2.5 MG PO DAILY Bupropion HCl (Bupropion HCl Sr), 150 MG PO BID Citalopram (Citalopram Hydrobromide), 40 MG PO DAILY Gabapentin (Gabapentin), 300 MG PO TID Scheduled PRN Lorazepam (Lorazepam), 1 MG PO BID PRN for Anxiety Allergies Coded Allergies: Aspirin (Verified Allergy, Severe, SEVERE REACTION TO ANOTHER MEDICATION PT TAKES, 11/01/16) Ranitidine (Verified Allergy, Severe, HIVES, 11/01/16) Ibuprofen (Verified Allergy, Intermediate, rash, 11/01/16) Sulfa Antibiotics (Verified Allergy, Intermediate, HIVES AND ITCHING, 11/01) Clindamycin (Verified Allergy, Unknown, Rash., 11/01/16) Physical Exam Vital Signs Date Time Temp Pulse Resp B/P Pulse Ox O2 Delivery O2 Flow Rate FiO2 11/28/16 21:21 37.8 113 18 103/78 96 Room Air 11/28/16 21:07 37.7 68 18 115/73 97 Room Air Physical Exam GENERAL: Awake, alert, well-appearing, in no distress HENT: Normocephalic, atraumatic. Oropharynx unremarkable. EYES: Normal conjunctiva. Sclera non-icteric. NECK: Supple. No nuchal rigidity. FROM. No JVD. RESPIRATORY: Clear to auscultation. CARDIAC: Regular rate, normal rhythm. Extremities warm and well perfused. Pulses equal. ABDOMEN: Soft, non-distended. No tenderness to palpation. No rebound or guarding. No masses. RECTAL: Deferred. MUSCULOSKELETAL: Chest examination reveals no tenderness. The back is symmetrical on inspection without obvious abnormality. There is no CVA tenderness to palpation. No joint edema. LOWER EXTREMITIES: Calves are equal size bilaterally and non-tender. No edema. No discoloration. NEURO: Normal sensorium. No sensory or motor deficits noted. SKIN: No rash or jaundice noted. Medical Decision & Procedures ER Provider Diagnostic Interpretation: X-ray: Per my interpretation, radiologist review. CHEST ONE VIEW PORTABLE FINDINGS: Lung volumes are normal. There is no pneumothorax or pleural effusion. Pulmonary vascularity is normal. Cardiac size is normal. Mediastinal contours are normal. There is no evidence of pulmonary edema. There is no consolidation. IMPRESSION: No acute cardiopulmonary findings. Electronically signed by: Calvin Ivory M.D. Medications Administered Medications (Trade) Dose Ordered Sig/Jesse Route Start Time Stop Time Status Last Admin Dose Admin Acetaminophen (Tylenol Tab) 1,000 mg NOW STAT PO 11/28/16 21:34 11/28/16 21:35 DC 11/28/16 21:45 1,000 MG ED Course 2129: The patient was evaluated in room C12B. A complete history and physical exam was performed. 2133: Ordered Tylenol Tab 1000 mg PO. 2229: I reevaluated the patient. She is resting and in no distress. Discussed results and discharge instructions: she verbalized understanding and agreement. The patient is ready for discharge. Medical Decision Triage Nursing notes reviewed. The patient's presentation and history were concerning for bronchitis, URI, pneumonia, and UTI. Patient on reexamination at 2228 resting in no distress, discussed the patient at bedside. Patient's chest x-ray is negative however she has symptoms of bronchitis. 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 Impression Primary Impression: Bronchitis Scribe Attestation The scribe's documentation has been prepared under my direction and personally reviewed by me in its entirety. I confirm that the note above accurately reflects all work, treatment, procedures, and medical decision making performed by me. Departure Information Dispostion Home / Self-Care Prescriptions Azithromycin (ZITHROMAX Z-FENG) 250 Mg Tab 1 PKT PO UD for 5 Days, #6 TAB Prov: Devan Martin, DO 11/28/16 Referrals No Doctor, Assigned (PCP) Patient Instructions Bronchitis Acute, My [facility]
--- NOTE | 2016-11-28 22:21 | DIAGNOSTIC IMAGING REPORT ---
CHEST ONE VIEW PORTABLE CLINICAL HISTORY: Cough. COMPARISON STUDY: Chest radiograph November 01, 2016. FINDINGS: Lung volumes are normal. There is no pneumothorax or pleural effusion. Pulmonary vascularity is normal. Cardiac size is normal. Mediastinal contours are normal. There is no evidence of pulmonary edema. There is no consolidation. IMPRESSION: No acute cardiopulmonary findings. Electronically signed by: Calvin Ivory M.D. 11/28/2016 10:19 PM Dictated Date/Time: 11/28/2016 10:19 PM
[2016-11-28] MEDS ORDERED: AZITTAB PO (22:30)
[2016-11-28 22:38] VITALS: BP 110/72; PULSE 128; TEMP 37.6; O2SAT 95
== END 2016-11-28 22:38 | disposition home or self-care (01) ==
LOC: C.EDB 20:55 → C.EDC 22:38
DX: J40 Bronchitis, not specified as acute or chronic (principal); F41.9 Anxiety disorder, unspecified; J45.909 Unspecified asthma, uncomplicated; F19.90 Other psychoactive substance use, unspecified, uncomplicated; F32.9 Major depressive disorder, single episode, unspecified; D35.2 Benign neoplasm of pituitary gland; M43.16 Spondylolisthesis, lumbar region; Z83.3 Family history of diabetes mellitus; Z84.1 Family history of disorders of kidney and ureter; F17.210 Nicotine dependence, cigarettes, uncomplicated; Z79.899 Other long term (current) drug therapy

== ENCOUNTER 2016-11-30 21:35 | Emergency (ER) | payer OTHER ==
[~2016-11-30] VITALS: Ht 170.2 cm; Wt 104.0 kg
[~2016-11-30 21:35] MED LIST changes: +ATV1 PO; +AZITTAB PO; +GABA1CAP4 PO; -NRN100 PO; +PRLD25 PO; +WLLSR150 PO
[2016-11-30 21:41] VITALS: BP 121/84; PULSE 104; TEMP 37; O2SAT 96; Ht 170.2 cm; Wt 104.0 kg
== END 2016-11-30 22:22 | disposition left against medical advice (07) ==
LOC: C.EDB 21:37 → C.EDC 22:22
DX: R06.02 Shortness of breath (principal)

== ENCOUNTER 2017-03-01 16:58 | Emergency (ER) | payer OTHER ==
[~2017-03-01] VITALS: Ht 170.2 cm; Wt 99.4 kg
[~2017-03-01 16:58] MED LIST changes: -AZITTAB PO
[2017-03-01 17:16] VITALS: Ht 170.2 cm; Wt 99.4 kg
[2017-03-01] MEDS ORDERED: SODIUM CHLORIDE 0.9% 1000ML 1,000 ML IV STA (18:35)
[2017-03-01 19:15] LABS: BASO % 0.4 %; BASO ABS # 0.04 K/uL (0-0.2); COMPLETE YES; EOS % 4.7 %; HEMATOCRIT 44.1 % (37-47); IG% 0.3 %; LYMPH % 28.6 %; LYMPH ABS # 3.04 K/uL (1.2-3.4); MEAN CELL VOLUME 89.5 fL (80-100); MEAN CORPUSCULAR HGB CONC 32.4 g/dl (32-36); MEAN PLATELET VOLUME 11.7 fL (7.4-10.4); MONO % 3.6 %; NEUT % 62.4 %; PLATELET COUNT 247 K/uL (130-400); RED BLOOD COUNT 4.93 M/uL (4.2-5.4); WHITE BLOOD COUNT 10.63 K/uL (4.8-10.8)
[2017-03-01 19:18] LABS: BUN/CREATININE RATIO 11.6 (10-20); CALCIUM 8.6 mg/dl (8.5-10.1); CREATININE 0.82 mg/dl (0.60-1.20); POTASSIUM 4.2 mmol/L (3.5-5.1)
--- NOTE | 2017-03-01 19:18 | DIAGNOSTIC IMAGING REPORT ---
CHEST 2 VIEWS ROUTINE CLINICAL HISTORY: COUGH dyspnea COMPARISON STUDY: 11/28/2016 FINDINGS: The bones soft tissues and hemidiaphragms are normal. The cardiomediastinal silhouette is normal. The lungs are clear. The pulmonary vasculature is normal. IMPRESSION: Negative chest. Electronically signed by: Reinaldo Mann M.D. 03/01/2017 7:17 PM Dictated Date/Time: 03/01/2017 7:17 PM
[2017-03-01 19:20] LABS: ALB/GLOB RATIO 0.8 (0.9-2)
--- NOTE | 2017-03-01 19:41 | EMERGENCY ROOM VISIT NOTE ---
History First contact with patient: 18:19 Chief Complaint: ILLNESS Stated Complaint: WEAK, MIGRAINE, MONO SX, FEVERISH History of Present Illness Patient is a 32-year-old white female who presents the emergency department for evaluation of sore throat, headache, fatigue, body and muscle aches. She thinks that she might have mono again. She states she was diagnosed with mononucleosis a couple of months ago at this facility. The last 7-10 days she has noticed a headache, fatigue, body and muscle aches, poor appetite, sore throat and dizziness. She has subjective leave had sweats and chills. She reports that she had a low-grade fever at her psychiatrist's office this week. She is tried to rest and increase her fluid intake. She has not taken any medications for her symptoms. She denies any changes in her medication regimen recently. She denies any skin rashes. No posterior neck pain or stiffness. She denies any sick contacts. Review of Systems Review of systems as per HPI. All other systems reviewed were negative. 10 systems reviewed. Past Medical/Surgical History Medical Problems: (1) Anxiety disorder (2) Asthma (3) Cocaine use (4) Illicit drug use (5) Lower abdominal pain (6) Moderate recurrent major depression (7) Nausea (8) Ovarian cyst (9) Pituitary adenoma (10) Rectal bleeding (11) Spondylolisthesis, lumbar region (12) Suicidal ideations (13) Tonsillectomy and adenoidectomy Surgical Problems: (1) History of back surgery (2) History of tubal ligation (3) s p ORIF right tibia fx (4) s p sinus surgery (5) s p tonsillectomy Electronic medical records are reviewed and summarized as above/below. See Problem List. Family History Diabetes mellitus Kidney disease Social History Smoking Status: Current Every Day Smoker Alcohol Use: occasionally Drug Use: none Marital Status: single Housing Status: lives alone Occupation Status: unemployed, disabled Current/Historical Medications Scheduled Bromocriptine Mesylate (Bromocriptine Mesylate), 2.5 MG PO DAILY Bupropion HCl (Bupropion HCl Sr), 150 MG PO BID Citalopram (Citalopram Hydrobromide), 40 MG PO DAILY Gabapentin (Gabapentin), 300 MG PO TID Scheduled PRN Lorazepam (Lorazepam), 1 MG PO BID PRN for Anxiety Allergies Coded Allergies: Aspirin (Verified Allergy, Severe, SEVERE REACTION TO ANOTHER MEDICATION PT TAKES, 03/01/17) Ranitidine (Verified Allergy, Severe, HIVES, 03/01/17) Ibuprofen (Verified Allergy, Intermediate, rash, 03/01/17) Sulfa Antibiotics (Verified Allergy, Intermediate, HIVES AND ITCHING, 03/01) Clindamycin (Verified Allergy, Unknown, Rash., 03/01/17) Physical Exam Vital Signs Date Time Temp Pulse Resp B/P (MAP) Pulse Ox O2 Delivery O2 Flow Rate FiO2 03/01/17 20:11 36.9 97 18 116/68 99 03/01/17 19:07 106 18 116/68 98 Room Air 03/01/17 17:16 36.9 100 18 104/71 97 Room Air Physical Exam MENTAL STATUS: Well-appearing 32-year-old white female who is awake and alert and in no acute distress. Vital signs are stable. HEAD: Atraumatic, without temporal or scalp tenderness. EYES: PERRL, EOMI, no discharge or injection. EARS: Tympanic membranes intact, not inflamed, have normal contour. External canals clear. NOSE: Nares patent, turbinates edematous and boggy with clear rhinorrhea. MOUTH: Mucous membranes moist, no lesions, tongue and gums appear normal. THROAT: Tonsils are surgically absent. No pharyngeal injection, exudates or palatal petechiae. Airway is patent. NECK: Supple, nontender, no lymphadenopathy. No new or rigidity. HEART: Regular rate and rhythm without murmurs, ectopy, gallops, or rubs. LUNGS: Clear to auscultation and breath sounds equal, no wheezes, rales, or rhonchi. ABDOMEN: Bowel sounds are present. Abdomen is soft, nontender and nondistended. No guarding, rebound or rigidity. SKIN: Normal. NEUROLOGICAL: Sensory and motor functions grossly intact. Normal gait. Medical Decision & Procedures ER Provider Diagnostic Interpretation: CHEST 2 VIEWS ROUTINE CLINICAL HISTORY: COUGH dyspnea COMPARISON STUDY: 11/28/2016 FINDINGS: The bones soft tissues and hemidiaphragms are normal. The cardiomediastinal silhouette is normal. The lungs are clear. The pulmonary vasculature is normal. IMPRESSION: Negative chest. Laboratory Results 03/01/17 18:40 Red Blood Count 4.93, Mean Corpuscular Volume 89.5, Mean Corpuscular Hemoglobin 29.0, Mean Corpuscular Hemoglobin Concent 32.4, Mean Platelet Volume 11.7, Neutrophils (%) (Auto) 62.4, Lymphocytes (%) (Auto) 28.6, Monocytes (%) (Auto) 3.6, Eosinophils (%) (Auto) 4.7, Basophils (%) (Auto) 0.4, Neutrophils # (Auto) 6.64, Lymphocytes # (Auto) 3.04, Monocytes # (Auto) 0.38, Eosinophils # (Auto) 0.50, Basophils # (Auto) 0.04 03/01/17 18:40 Test 03/01/17 18:40 03/01/17 18:50 White Blood Count 10.63 K/uL (4.8-10.8) Red Blood Count 4.93 M/uL (4.2-5.4) Hemoglobin 14.3 g/dL (12.0-16.0) Hematocrit 44.1 % (37-47) Mean Corpuscular Volume 89.5 fL (80-100) Mean Corpuscular Hemoglobin 29.0 pg (25-34) Mean Corpuscular Hemoglobin Concent 32.4 g/dl (32-36) Platelet Count 247 K/uL (130-400) Mean Platelet Volume 11.7 fL (7.4-10.4) Neutrophils (%) (Auto) 62.4 % Lymphocytes (%) (Auto) 28.6 % Monocytes (%) (Auto) 3.6 % Eosinophils (%) (Auto) 4.7 % Basophils (%) (Auto) 0.4 % Neutrophils # (Auto) 6.64 K/uL (1.4-6.5) Lymphocytes # (Auto) 3.04 K/uL (1.2-3.4) Monocytes # (Auto) 0.38 K/uL (0.11-0.59) Eosinophils # (Auto) 0.50 K/uL (0-0.5) Basophils # (Auto) 0.04 K/uL (0-0.2) RDW Standard Deviation 48.5 fL (36.4-46.3) RDW Coefficient of Variation 14.7 % (11.5-14.5) Immature Granulocyte % (Auto) 0.3 % Immature Granulocyte # (Auto) 0.03 K/uL (0.00-0.02) Anion Gap 7.0 mmol/L (3-11) Est Creatinine Clear Calc Drug Dose 120.4 ml/min Estimated GFR () 110.5 Estimated GFR (Non- 95.4 BUN/Creatinine Ratio 11.6 (10-20) Calcium Level 8.6 mg/dl (8.5-10.1) Total Bilirubin 0.2 mg/dl (0.2-1) Aspartate Amino Transf (AST/SGOT) 14 U/L (15-37) Alanine Aminotransferase (ALT/SGPT) 18 U/L (12-78) Alkaline Phosphatase 83 U/L (45-117) Total Protein 6.7 gm/dl (6.4-8.2) Albumin 3.0 gm/dl (3.4-5.0) Globulin 3.7 gm/dl (2.5-4.0) Albumin/Globulin Ratio 0.8 (0.9-2) Monoscreen NEG (NEG) Urine Test NEG (NEG) Medications Administered Medications (Trade) Dose Ordered Sig/Jesse Route Start Time Stop Time Status Last Admin Dose Admin Sodium Chloride 1,000 ml @ 999 mls/hr Q1H1M STAT IV 03/01/17 18:35 03/01/17 19:35 DC 03/01/17 18:52 999 MLS/HR ED Course The patient was seen and evaluated as above. Old records were reviewed. IV lock was initiated, laboratory studies were collected and the patient was hydrated with normal saline solution. Urine dip and test were negative. Laboratory studies noted a normal white count. She is not anemic. Electrolytes and liver functions are within normal limits. Monospot is negative. Chest x-ray was unremarkable. The patient was reassured. She was reassessed. She was feeling improved. Differential diagnoses entertained included URI, viral illness, pneumonia, bronchitis, strep pharyngitis, tonsillitis, retropharyngeal or peritonsillar abscess, mononucleosis, meningitis, pneumonia, sepsis, among others. The patient was encouraged to rest, remain well-hydrated and use [id number] medications for her symptoms. She is discharged home in good condition. Medication reconciliation: I attest that I have personally reviewed the patient' s current medication list. Blood pressure screening : Patient was found to have normal blood pressure on screening and does not require follow-up. Medical Decision See Emergency Department course Impression Primary Impression: Sore throat Additional Impression: Fatigue Departure Information Referrals No Doctor, Assigned (PCP) Patient Instructions My [facility] Additional Instructions Acetaminophen(Tylenol) may be used for fever or pain. Use 1000mg every six hours as needed. Avoid using more than 3000mg in a 24 hour period. Rest and drink plenty of fluids. Continue current medications. Return to the ER for severe headache, neck stiffness, chest pain, difficulty breathing, fevers, vomiting, worsening of your condition, or as needed. Follow up with your primary physician this week for a recheck of your current condition. We will contact you if you throat culture is positive and requires treatment with antibiotics. Problem Qualifiers
[2017-03-01 20:11] VITALS: BP 116/68; PULSE 97; TEMP 36.9; O2SAT 99
== END 2017-03-01 20:12 | disposition home or self-care (01) ==
LOC: C.EDB 16:59 → C.EDA 20:12
DX: J02.9 Acute pharyngitis, unspecified (principal); R53.83 Other fatigue; J45.909 Unspecified asthma, uncomplicated; R42 Dizziness and giddiness; F41.9 Anxiety disorder, unspecified; M43.16 Spondylolisthesis, lumbar region; Z86.011 Personal history of benign neoplasm of the brain; F19.90 Other psychoactive substance use, unspecified, uncomplicated; Z83.3 Family history of diabetes mellitus; Z84.1 Family history of disorders of kidney and ureter; F17.210 Nicotine dependence, cigarettes, uncomplicated; Z79.899 Other long term (current) drug therapy

== ENCOUNTER 2017-06-04 23:02 | Emergency (ER) | payer OTHER ==
[~2017-06-04] VITALS: Ht 170.2 cm; Wt 100.4 kg
[2017-06-04 23:10] VITALS: Ht 170.2 cm; Wt 100.4 kg
[2017-06-04] MEDS ORDERED: GI COCKTAIL PO STA (23:45)
[2017-06-04] MEDS ORDERED: SODIUM CHLORIDE 0.9% 1000ML 1,000 ML IV STA (23:45)
[2017-06-04] MEDS ORDERED: DiphenhydrAMINE HCL 50 MG/ML VIAL IV STA (23:45)
[2017-06-04] MEDS ORDERED: PROCHLORPERAZINE 5 MG/ML 2 ML VIAL IV STA (23:45)
--- NOTE | 2017-06-04 23:45 | EMERGENCY ROOM VISIT NOTE ---
History Report prepared by Inocencia: Bossman Geller Under the Supervision of: Dr. Manuel Tellez M.D. First contact with patient: 23:36 Chief Complaint: HEADACHE Stated Complaint: MIGRAINE,VOMITING CHUNKS OF BLOOD,WEAK History of Present Illness The patient is a 32 year old female who presents to the Emergency Room with complaints of episodes of vomiting blood that started 48 hours ago. She says that shortly after she started vomiting initially, she then started having a migraine headache, which has persisted. The patient adds that she feels really badly, and is having abdominal pain which she describes as a cramping. She notes that she had symptoms like this previously, and was seen here, but does not take any current medications for ulcers. The patient adds that she was bit by something on the right side of her right ankle, but does not have any other rashes. She denies any back pain. The patient notes that she still has her gallbladder. Source of History: patient Onset: 48 hours ago Position: other (global - vomiting) Symptom Intensity: vomiting blood Timing: other (episodes) Associated Symptoms: + headache (migraine), + abdominal pain, No back pain Note: Associated symptoms: Bit by something on right side of right ankle. Has no other noted rashes. Review of Systems See HPI for pertinent positives & negatives. A total of 10 systems reviewed and were otherwise negative. Past Medical & Surgical Medical Problems: (1) Anxiety disorder (2) Asthma (3) Cocaine use (4) Illicit drug use (5) Lower abdominal pain (6) Moderate recurrent major depression (7) Nausea (8) Ovarian cyst (9) Pituitary adenoma (10) Rectal bleeding (11) Spondylolisthesis, lumbar region (12) Suicidal ideations (13) Tonsillectomy and adenoidectomy Surgical Problems: (1) History of back surgery (2) History of tubal ligation (3) s p ORIF right tibia fx (4) s p sinus surgery (5) s p tonsillectomy Family History Diabetes mellitus Kidney disease Social History Smoking Status: Never Smoker Alcohol Use: occasionally Drug Use: none Marital Status: single Housing Status: lives alone Occupation Status: unemployed, disabled Current/Historical Medications Scheduled Bromocriptine Mesylate (Bromocriptine Mesylate), 2.5 MG PO DAILY Bupropion HCl (Bupropion HCl Sr), 150 MG PO BID Cephalexin Monohydrate (Keflex), 500 MG PO QID Citalopram (Citalopram Hydrobromide), 40 MG PO DAILY Gabapentin (Gabapentin), 300 MG PO TID Omeprazole (Omeprazole), 1 TAB PO DAILY Scheduled PRN Lorazepam (Lorazepam), 1 MG PO BID PRN for Anxiety Allergies Coded Allergies: Aspirin (Verified Allergy, Severe, SEVERE REACTION TO ANOTHER MEDICATION PT TAKES, 06/04/17) Ranitidine (Verified Allergy, Severe, HIVES, 06/04/17) Ibuprofen (Verified Allergy, Intermediate, rash, 06/04/17) Sulfa Antibiotics (Verified Allergy, Intermediate, HIVES AND ITCHING, 06/04) Clindamycin (Verified Allergy, Unknown, Rash., 06/04/17) Physical Exam Vital Signs Date Time Temp Pulse Resp B/P (MAP) Pulse Ox O2 Delivery O2 Flow Rate FiO2 06/05/17 01:48 36.7 112 16 132/75 99 06/05/17 01:05 112 16 132/75 99 Room Air 06/04/17 23:10 36.7 102 20 119/80 98 Room Air Physical Exam GENERAL: Patient is well appearing and in minimal distress. HEENT: No acute trauma, normocephalic atraumatic, mucous membranes moist, no nasal congestion, no scleral icterus. NECK: No stridor, no adenopathy, no meningismus, trachea is midline. LUNGS: No dyspnea. Clear to auscultation and equal bilaterally. No wheeze, no rhonchi. HEART: Regular rate and rhythm. No murmurs, rubs, gallops appreciated. ABDOMEN: Vague right upper quadrant and epigastric tenderness to palpation. Soft , bowel sounds positive, no masses appreciated, no peritonitis. BACK: No midline tenderness, no CVA tenderness EXTREMITIES: Normal motion all extremities. Abrasion over right ankle with some surrounding erythema. NEUROLOGIC: Alert and oriented, no acute motor or sensory deficits, no focal weakness, cranial nerves grossly intact. SKIN: No rash, no jaundice, no diaphoresis. Medical Decision & Procedures Laboratory Results 06/05/17 00:10 Red Blood Count 4.36, Mean Corpuscular Volume 89.4, Mean Corpuscular Hemoglobin 30.5, Mean Corpuscular Hemoglobin Concent 34.1, Mean Platelet Volume 11.2, Neutrophils (%) (Auto) 57.2, Lymphocytes (%) (Auto) 31.5, Monocytes (%) (Auto) 5.3, Eosinophils (%) (Auto) 5.3, Basophils (%) (Auto) 0.4, Neutrophils # (Auto) 7.19, Lymphocytes # (Auto) 3.96, Monocytes # (Auto) 0.66, Eosinophils # (Auto) 0.67, Basophils # (Auto) 0.05 06/05/17 00:10 Test 06/05/17 00:00 06/05/17 00:10 Urine Color DK YELLOW Urine Appearance CLOUDY (CLEAR) Urine pH 5.0 (4.5-7.5) Urine Specific [place] 1.043 (1.000-1.030) Urine Protein NEG (NEG) Urine Glucose (UA) NEG (NEG) Urine Ketones NEG (NEG) Urine Occult Blood NEG (NEG) Urine Nitrite NEG (NEG) Urine Bilirubin NEG (NEG) Urine Urobilinogen NEG (NEG) Urine Leukocyte Esterase NEG (NEG) Urine WBC (Auto) 10-30 /hpf (0-5) Urine RBC (Auto) 0-4 /hpf (0-4) Urine Hyaline Casts (Auto) 0 /lpf (0-5) Urine Epithelial Cells (Auto) >30 /lpf (0-5) Urine Bacteria (Auto) 2+ (NEG) Urine Crystals CALCIUM OXALATE (NONE Urine Pathogenic Casts /lpf (0) Urine Mucus PRESENT (NONE PRSENT) White Blood Count 12.57 K/uL (4.8-10.8) Red Blood Count 4.36 M/uL (4.2-5.4) Hemoglobin 13.3 g/dL (12.0-16.0) Hematocrit 39.0 % (37-47) Mean Corpuscular Volume 89.4 fL (80-100) Mean Corpuscular Hemoglobin 30.5 pg (25-34) Mean Corpuscular Hemoglobin Concent 34.1 g/dl (32-36) Platelet Count 247 K/uL (130-400) Mean Platelet Volume 11.2 fL (7.4-10.4) Neutrophils (%) (Auto) 57.2 % Lymphocytes (%) (Auto) 31.5 % Monocytes (%) (Auto) 5.3 % Eosinophils (%) (Auto) 5.3 % Basophils (%) (Auto) 0.4 % Neutrophils # (Auto) 7.19 K/uL (1.4-6.5) Lymphocytes # (Auto) 3.96 K/uL (1.2-3.4) Monocytes # (Auto) 0.66 K/uL (0.11-0.59) Eosinophils # (Auto) 0.67 K/uL (0-0.5) Basophils # (Auto) 0.05 K/uL (0-0.2) RDW Standard Deviation 46.9 fL (36.4-46.3) RDW Coefficient of Variation 14.2 % (11.5-14.5) Immature Granulocyte % (Auto) 0.3 % Immature Granulocyte # (Auto) 0.04 K/uL (0.00-0.02) Anion Gap 8.0 mmol/L (3-11) Est Creatinine Clear Calc Drug Dose 105.6 ml/min Estimated GFR () 93.7 Estimated GFR (Non- 80.8 BUN/Creatinine Ratio 17.5 (10-20) Calcium Level 8.6 mg/dl (8.5-10.1) Total Bilirubin 0.2 mg/dl (0.2-1) Direct Bilirubin < 0.1 mg/dl (0-0.2) Aspartate Amino Transf (AST/SGOT) 10 U/L (15-37) Alanine Aminotransferase (ALT/SGPT) 14 U/L (12-78) Alkaline Phosphatase 83 U/L (45-117) Total Protein 6.7 gm/dl (6.4-8.2) Albumin 3.2 gm/dl (3.4-5.0) Lipase 236 U/L (73-393) Laboratory results as reviewed by me. Medications Administered Medications (Trade) Dose Ordered Sig/Jesse Route Start Time Stop Time Status Last Admin Dose Admin Prochlorperazine Edisylate (Compazine Inj) 10 mg NOW STAT IV 06/04/17 23:45 06/04/17 23:47 DC 06/05/17 00:23 10 MG Diphenhydramine HCl (Benadryl Inj) 50 mg NOW STAT IV 06/04/17 23:45 06/04/17 23:47 DC 06/05/17 00:23 50 MG Sodium Chloride 1,000 ml @ 999 mls/hr Q1H1M STAT IV 06/04/17 23:45 06/05/17 00:45 DC 06/05/17 00:24 999 MLS/HR Lidocaine HCl (Viscous Lidocaine 2% Soln) 20 ml STK-MED ONCE .ROUTE 06/05/17 00:20 06/05/17 00:21 DC 06/05/17 00:23 20 ML Al Hydroxide/Mg Hydroxide (Maalox Susp) 30 ml STK-MED ONCE .ROUTE 06/05/17 00:20 06/05/17 00:21 DC 06/05/17 00:23 30 ML Cephalexin Monohydrate (Keflex Cap) 500 mg NOW ONCE PO 06/05/17 01:45 06/05/17 01:46 DC 06/05/17 01:43 500 MG Pantoprazole Sodium (Protonix Tab) 40 mg NOW STAT PO 06/05/17 01:35 06/05/17 01:36 DC 06/05/17 01:43 40 MG ED Course 2340: The patient was evaluated in room C6. A complete history and physical exam was performed. 2345: Ordered GI Cocktail 24 ml PO, NSS 1000 ml @ 999 mls/hr IV, Benadryl Inj 50 mg IV, Compazine Inj 10 mg IV. 0056: I reevaluated the patient and she is sleeping. 0137: I reevaluated the patient and she is feeling better and does not want her ultrasound. She will see her psychiatrist in the morning. The patient verbally expressed understanding and agreement of the treatment plan. The patient will be discharged. 0145: Ordered Keflex Cap 500 mg PO. Medical Decision Differential: Gastroenteritis, Food Borne, Esophageal Perforation, , Electrolyte Abnormality, Dehydration, Intraabdominal Infection, UTI/ Pyelonephritis, Bowel Obstruction, Biliary Pathology, amongst other pathology entertained. 32 yr old female arrives with vast array of complaints, though primarily appears to be: Vomiting blood: Blood streaked emesis over last 48 hours with epigastric discomfort. Admits she has been diagnosed with ulcer in past though states she doesn't believe this is cause thus does not take anti-acid. Exam with some epigastric/RUQ abdominal TTP. She is not vomiting. She is requesting pain and anxiety medications which I do not feel are indicated. Was given benadryl/ compazine/gicocktail with resolution of symptoms and patient sleeping. Labs unremarkable. Declined US after it was ordered. I feel she likely has GI bug and with some gastritis/ashutosh rhoades issues. HgB normal. Vitals OK. She denies black, bloody stools. Headache: Chronic migraine issues with slow onset diffuse headache over last 48 hours. Associated nausea/vomiting. Similar to previous migraines. No injuries. No evidence meningitis, sah, ich, dissection, nor other acute cause. No fevers and wbc is at her baseline. I do not feel she requires LP. Symptoms resolved with above. Ankle Rash: Abrasion right lateral ankle which she admits she has been scratching at and peeling scab. Now with mild surrounding erythema which may be mild cellulitis. No streaking. Advised wound care and will place on keflex. Reviewed symptoms to monitor for. Patient again asking for pain/anxiety prescriptions. I informed her I saw no indication and she has vague reasons why she wishes this. She eventually admitted she is seeing her psychiatrist tomorrow. Denies suicidal/homicidal concerns. Patient noted to have checked in with 2 other people all with complaints requesting pain medications and no acute findings found on them. Medication Reconcilliation Current Medication List: was personally reviewed by me Blood Pressure Screening Patient's blood pressure: Normal blood pressure Impression Primary Impression: Headache Additional Impressions: Vomiting blood Epigastric abdominal pain Cellulitis of right ankle Scribe Attestation The scribe's documentation has been prepared under my direction and personally reviewed by me in its entirety. I confirm that the note above accurately reflects all work, treatment, procedures, and medical decision making performed by me. Departure Information Dispostion Home / Self-Care Prescriptions Cephalexin Monohydrate (KEFLEX) 500 Mg Cap 500 MG PO QID for 7 Days, #28 CAP Prov: Manuel Tellez M.D. 06/05/17 Omeprazole (OMEPRAZOLE) 20 Mg Tab 1 TAB PO DAILY for 30 Days, #30 TAB 1 Refill Prov: Manuel Tellez M.D. 06/05/17 Referrals No Doctor, Assigned (PCP) Patient Instructions ED Epigastric [place] [facility] [place] [facility] Additional Instructions It is likely your symptoms are due to an ulcer or irritation of your stomach and esophagus. You should be taking an anti-acid to help heal this. Take one tab of Omeprazole twice daily for 10 days then once daily. Follow up with your Primary Provider to discuss having follow up by Gastroenterology. Problem Qualifiers
[2017-06-05] MEDS ORDERED: ALUMINUM/MAGNESIUM SUSP 30 ML UDC ONE (00:20)
[2017-06-05] MEDS ORDERED: LIDOCAINE HCL 2% VISC SOLN 20 ML UDC ONE (00:20)
[2017-06-05 00:29] LABS: BASO % 0.4 %; BASO ABS # 0.05 K/uL (0-0.2); COMPLETE YES; EOS % 5.3 %; IG% 0.3 %; LYMPH % 31.5 %; LYMPH ABS # 3.96 K/uL (1.2-3.4); MEAN CELL VOLUME 89.4 fL (80-100); MEAN CORPUSCULAR HEMOGLOBIN 30.5 pg (25-34); MEAN CORPUSCULAR HGB CONC 34.1 g/dl (32-36); MEAN PLATELET VOLUME 11.2 fL (7.4-10.4); MONO % 5.3 %; NEUT % 57.2 %; PLATELET COUNT 247 K/uL (130-400); RED BLOOD COUNT 4.36 M/uL (4.2-5.4); WHITE BLOOD COUNT 12.57 K/uL (4.8-10.8)
[2017-06-05 00:30] LABS: URINE APPEARANCE CLOUDY (CLEAR); URINE COLOR DK YELLOW; URINE EPITHELIAL CELL AUTO >30 /lpf (0-5); URINE NITRITE NEG (NEG); URINE SPECIFIC GRAVITY 1.043 (1.000-1.030); UROBILINOGEN NEG (NEG); ZZUR CULT IF INDIC CLEAN CATCH YES
[2017-06-05 00:41] LABS: MANUAL MICROSCOPIC REQUIRED? NO; REVIEW REQ? YES; URINE BILIRUBIN NEG (NEG)
[2017-06-05 00:42] LABS: URINE MUCUS PRESENT (NONE PRSENT)
[2017-06-05 00:57] LABS: ALT/SGPT 14 U/L (12-78); AST/SGOT 10 U/L (15-37); BLOOD UREA NITROGEN 16 mg/dl (7-18); BUN/CREATININE RATIO 17.5 (10-20); CALCIUM 8.6 mg/dl (8.5-10.1); CARBON DIOXIDE 27 mmol/L (21-32); CHLORIDE 108 mmol/L (98-107); CREATININE 0.94 mg/dl (0.60-1.20); GLUCOSE 90 mg/dl (70-99); POTASSIUM 3.5 mmol/L (3.5-5.1); SODIUM 143 mmol/L (136-145)
[2017-06-05 01:00] LABS: ALKALINE PHOSPHATASE 83 U/L (45-117)
[2017-06-05] MEDS ORDERED: OMEP20TA PO (01:34)
[2017-06-05] MEDS ORDERED: PANTOprazole SOD 40 MG TAB PO STA (01:35)
[2017-06-05] MEDS ORDERED: CEPH500C2 PO (01:35)
[2017-06-05] MEDS ORDERED: CEPHALEXIN MONOHYDRATE 250 MG CAP PO ONE (01:45)
[2017-06-05 01:48] VITALS: BP 132/75; PULSE 112; TEMP 36.7; O2SAT 99
== END 2017-06-05 01:50 | disposition home or self-care (01) ==
LOC: C.EDB 23:02 → C.EDC 06-05 01:50
DX: K92.0 Hematemesis (principal); G43.909 Migraine, unspecified, not intractable, without status migrainosus; R10.13 Epigastric pain; L03.115 Cellulitis of right lower limb; F41.9 Anxiety disorder, unspecified; J45.909 Unspecified asthma, uncomplicated; F32.9 Major depressive disorder, single episode, unspecified; N83.209 Unspecified ovarian cyst, unspecified side; Z98.51 Tubal ligation status; Z83.3 Family history of diabetes mellitus; Z84.1 Family history of disorders of kidney and ureter; Z79.899 Other long term (current) drug therapy

== ENCOUNTER 2017-09-05 16:25 | Emergency (ER) | payer OTHER ==
[~2017-09-05] VITALS: Ht 170.2 cm; Wt 93.5 kg
[~2017-09-05 16:25] MED LIST changes: +OMEP20TA PO
[2017-09-05 16:31] VITALS: TEMP 36.9; Ht 170.2 cm; Wt 93.5 kg
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
[2017-09-05] MEDS ORDERED: SODIUM CHLORIDE 0.9% 1000ML 2,000 ML IV STA (17:00)
[2017-09-05] MEDS ORDERED: ONDANSETRON INJ 2 MG/ML 2 ML VIAL IV STA (17:00)
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
[2017-09-05] MEDS ORDERED: OPTIRAY 320 IV PRN (17:15)
[2017-09-05 17:16] LABS: PREG INTERNAL NEGATIVE QC NEG CLEAR BACKGROUND; PREG INTERNAL POSITIVE QC POS CONTROL LINE
[2017-09-05 17:32] LABS: BASO % 0.4 %; BASO ABS # 0.05 K/uL (0-0.2); COMPLETE YES; EOS % 2.8 %; HEMATOCRIT 42.2 % (37-47); IG% 0.3 %; LYMPH % 30.9 %; LYMPH ABS # 4.12 K/uL (1.2-3.4); MEAN CELL VOLUME 86.1 fL (80-100); MEAN CORPUSCULAR HGB CONC 34.8 g/dl (32-36); MEAN PLATELET VOLUME 10.1 fL (7.4-10.4); MONO % 4.5 %; NEUT % 61.1 %; PLATELET COUNT 290 K/uL (130-400); WHITE BLOOD COUNT 13.32 K/uL (4.8-10.8)
[2017-09-05 17:46] LABS: BUN/CREATININE RATIO 11.6 (10-20); CALCIUM 9.3 mg/dl (8.5-10.1); CREATININE 0.93 mg/dl (0.60-1.20); POTASSIUM 3.3 mmol/L (3.5-5.1)
--- NOTE | 2017-09-05 17:49 | DIAGNOSTIC IMAGING REPORT ---
CHEST ONE VIEW PORTABLE CLINICAL HISTORY: Chest pain and cough. COMPARISON STUDY: Chest radiograph March 01, 2017. FINDINGS: Lung volumes are normal. No pneumothorax or pleural effusion is present. There is no consolidation to suggest pneumonia. Pulmonary vascularity is normal. Cardiomediastinal silhouette is normal. IMPRESSION: No acute cardiopulmonary findings. Electronically signed by: Calvin Ivory M.D. 09/05/2017 5:48 PM Dictated Date/Time: 09/05/2017 5:48 PM
[2017-09-05 17:53] LABS: BENZODIAZEPINE, URINE NEG (NEG); COCAINE,URINE NEG (NEG); PHENCYCLIDINE, URINE NEG (NEG)
[2017-09-05] MEDS ORDERED: LORAZEPAM 0.5 MG TAB SL STA (17:53)
[2017-09-05 18:04] LABS: PREG INTERNAL NEGATIVE QC NEG CLEAR BACKGROUND; PREG INTERNAL POSITIVE QC POS CONTROL LINE
--- NOTE | 2017-09-05 18:21 | DIAGNOSTIC IMAGING REPORT ---
HEAD WITHOUT CONTRAST (CT) CLINICAL HISTORY: 32 years-old Female with head. Acute altered mental status TECHNIQUE: Multiple axial CT images of the head were obtained without contrast. A dose lowering technique was utilized adhering to the principles of ALARA. CT DOSE: 537.48 mGy.cm COMPARISON: CT head 02/26/2015, brain MR 03/29/2015. FINDINGS: There is a small 3 mm subacute appearing subdural hematoma adjacent to the left cerebral convexity with mild associated mass effect adjacent left frontal lobe with 2 mm rightward midline shift. There is no Intracranial mass, hydrocephalus, or territorial ischemia. No intraparenchymal hemorrhage identified. The calvarium is intact. The paranasal sinuses, mastoid air cells, and middle ear cavities are clear. IMPRESSION: Small subacute subdural hematoma adjacent to the left cerebral convexity with mild associated mass effect and 2 mm rightward midline shift. Findings were discussed with Dr. Parish on 09/05/2017 at 6:15 PM The above report was generated using voice recognition software. It may contain grammatical, syntax or spelling errors. Electronically signed by: Reddy Norton M.D. 09/05/2017 6:19 PM Dictated Date/Time: 09/05/2017 6:11 PM
--- NOTE | 2017-09-05 18:28 | DIAGNOSTIC IMAGING REPORT ---
ABDOMEN AND PELVIS CT WITH IV CONTRAST CT DOSE: 755.18 mGy.cm HISTORY: Acute generalized abdominal pain. History of drug abuse. abd pain TECHNIQUE: Multiaxial CT images of the abdomen and pelvis were performed following the use of intravenous contrast. A dose lowering technique was utilized adhering to the principles of ALARA. COMPARISON STUDY: CT abdomen and pelvis 03/13/2014, lumbar spine MRI 08/01/2016. FINDINGS: Partially imaged 7 x 5 mm nodule of the right middle lobe, image 1 series 3, adjacent to the fissure may reflect a perifissural lymph node however is indeterminate. Lung bases are otherwise generally clear. No pneumatosis or pneumoperitoneum. Imaged inferior cardiac chambers are unremarkable. The liver, gallbladder, spleen, pancreas and adrenal glands are within normal limits. Kidneys, ureters and urinary bladder are within normal limits. Uterus and right adnexa are unremarkable. Peripherally enhancing cystic structure of the left adnexum measuring 1.9 x 1.4 cm. Aorta appears normal in course and caliber. No bulky adenopathy. Small sliding-type hiatal hernia. No bowel obstruction or focal bowel wall thickening identified. Normal appendix. Soft tissues are unremarkable. Bones appear intact. Postoperative changes from prior laminectomy and discectomy with posterior interbody felipe and screw fusion at L5-S1. Remote bilateral pars defects at this level. No evidence of hardware complication or malalignment. IMPRESSION: 1. No acute intra-abdominal or intrapelvic abnormality identified. Normal appendix. 2. Peripherally enhancing cystic structure of the left adnexum, 1.9 cm suggests involuting follicle. 3. Prior laminectomy with discectomy and interbody felipe and screw fusion at L5-S1. 4. Partially imaged 7 x 5 mm pulmonary nodule of the right middle lobe adjacent to the minor fissure may reflect a perifissural lymph node however is indeterminate. Electronically signed by: Reddy Norton M.D. 09/05/2017 6:27 PM Dictated Date/Time: 09/05/2017 6:20 PM
[2017-09-05] MEDS ORDERED: MoRPHine SULFATE 4 MG/ML 1 ML CARP\\VIAL IV STA (18:44)
--- NOTE | 2017-09-05 18:50 | DIAGNOSTIC IMAGING REPORT ---
CT OF THE CERVICAL SPINE WITHOUT CONTRAST CLINICAL HISTORY: Altered mental status. COMPARISON STUDY: CT of the cervical spine March 13, 2014 and MRI of the cervical spine October 20, 2014. TECHNIQUE: Helical axial images of the cervical spine were obtained without IV contrast. Sagittal and coronal reconstructions were viewed. A dose lowering technique was utilized adhering to the principles of ALARA. FINDINGS: There is reversal of the normal cervical lordosis. There is no acute cervical spine fracture. Craniocervical junction is intact. There is moderate multilevel degenerative disc disease, most pronounced at the C4-C5 and C6-C7 levels. There is no prevertebral edema. IMPRESSION: 1. No acute cervical spine fracture or subluxation. 2. Moderate multilevel degenerative disc disease and mild multilevel facet arthrosis. Electronically signed by: Calvin Ivory M.D. 09/05/2017 6:48 PM Dictated Date/Time: 09/05/2017 6:45 PM
[2017-09-05 19:20] VITALS: BP 148/84; PULSE 123; O2SAT 98
== END 2017-09-05 19:22 | disposition short-term general hospital (02) ==
LOC: EDBD 16:25 → C.EDC 16:29
DX: I62.00 Nontraumatic subdural hemorrhage, unspecified (principal); E87.6 Hypokalemia; F41.9 Anxiety disorder, unspecified; J45.909 Unspecified asthma, uncomplicated; M43.16 Spondylolisthesis, lumbar region; Z83.3 Family history of diabetes mellitus; Z84.1 Family history of disorders of kidney and ureter; F17.210 Nicotine dependence, cigarettes, uncomplicated; Z79.899 Other long term (current) drug therapy

== ENCOUNTER 2017-09-14 03:32 | Inpatient (IN) | payer OTHER ==
[~2017-09-14] VITALS: Ht 170.2 cm; Wt 94.2 kg
[~2017-09-14 03:32] MED LIST changes: +GABA-1219 PO; -GABA1CAP4 PO; -OMEP20TA PO
[2017-09-14 03:35] VITALS: Ht 170.2 cm; Wt 94.2 kg
[2017-09-14] MEDS ORDERED: CYAN1LOZ2 PO (04:16)
[2017-09-14] MEDS ORDERED: LEVE250T PO (04:17)
[2017-09-14] MEDS ORDERED: ONDANSETRON INJ 2 MG/ML 2 ML VIAL IV STA (04:39)
[2017-09-14] MEDS ORDERED: SODIUM CHLORIDE 0.9% 500ML 500 ML IV STA (04:39)
--- NOTE | 2017-09-14 04:43 | EMERGENCY ROOM VISIT NOTE ---
History Report prepared by Inocencia: Carlos Manuel Sol Under the Supervision of: Dr. Angela Warren D.O. First contact with patient: 04:01 Chief Complaint: VOMITING Stated Complaint: VOMITING Nursing Triage Summary: Was transferred from this ED to [facility] about a week ago for a head bleed, non-traumatic per pt. Pt states while at [facility], they had her discontinue all her home meds. They put her on Keppra and B-12. She has not been taking anything B-12, Keppra, and Bromocriptine. Discharged last Monday, over the weekend had chills, vomiting. Symtpoms have continued through the week. Tonight, vomiting, chills, body aches, headache, "a little bit of everything". Also states her eyes have looked and felt sunken since being in the hospital, and friend states the other day the pt's color had a solo tinge to it. History of Present Illness The patient is a 32 year old female who presents to the Emergency Room with complaints of multiple episodes of vomiting that began 5 days ago. She has a past medical history of an intracranial hemorrhage which was treated at [place]. She was discharged 5 days ago. She states that she was placed onto B12 and Lamictal and taken off of all of her anxiety/depression medications except for Gabapentin. Ever since she came home, she began to feel very nauseated and became unable to eat or drink without vomiting. She notes that she has been eating bland foods without success as well. She notes that she feels as if she is crawling out of her skin and has been very fatigued. She has not been able to move her bowels for the past week. She has tried multiple over the counter methods to relieve constipation but has not been able to move her bowels. She is experiencing generalized muscle aches without any specific pain to one location. Source of History: patient Onset: 5 days ago Position: other (GI) Symptom Intensity: Multiple episodes Quality: other (Vomiting) Timing: intermittent Associated Symptoms: + nausea, + fatigue Note: She has been unable to move her bowels for the past week. She has generalized muscle aches without any specific pain. Review of Systems See HPI for pertinent positives & negatives. A total of 10 systems reviewed and were otherwise negative. Past Medical & Surgical Medical Problems: (1) Anxiety disorder (2) Asthma (3) Cocaine use (4) Illicit drug use (5) Lower abdominal pain (6) Moderate recurrent major depression (7) Nausea (8) Ovarian cyst (9) Pituitary adenoma (10) Rectal bleeding (11) Spondylolisthesis, lumbar region (12) Suicidal ideations (13) Tonsillectomy and adenoidectomy Surgical Problems: (1) History of back surgery (2) History of tubal ligation (3) s p ORIF right tibia fx (4) s p sinus surgery (5) s p tonsillectomy Family History Diabetes mellitus Kidney disease Social History Smoking Status: Current Every Day Smoker Alcohol Use: occasionally Drug Use: none Marital Status: single Housing Status: lives alone Occupation Status: unemployed, disabled Current/Historical Medications Scheduled Bromocriptine Mesylate (Bromocriptine Mesylate), 2.5 MG PO DAILY Cyanocobalamin (Vitamin B 12), 1,000 MCG PO DAILY Gabapentin (Gabapentin), 300 MG PO TID Levetiracetam (Keppra), 500 MG PO BID Allergies Coded Allergies: Aspirin (Verified Allergy, Severe, SEVERE REACTION TO ANOTHER MEDICATION PT TAKES, 09/14/17) Ranitidine (Verified Allergy, Severe, HIVES, 09/14/17) Ibuprofen (Verified Allergy, Intermediate, rash, 09/14/17) Sulfa Antibiotics (Verified Allergy, Intermediate, HIVES AND ITCHING, ) Clindamycin (Verified Allergy, Unknown, Rash., 09/14/17) Physical Exam Vital Signs Date Time Temp Pulse Resp B/P (MAP) Pulse Ox O2 Delivery O2 Flow Rate FiO2 09/14/17 07:08 36.9 98 21 112/77 100 Room Air 09/14/17 06:30 120/75 09/14/17 06:27 77 21 100 09/14/17 05:42 88 13 97 09/14/17 05:37 101 16 99 Room Air 09/14/17 05:30 107/73 09/14/17 05:22 75 12 99 09/14/17 05:07 70 19 99 09/14/17 05:00 116/85 09/14/17 04:52 80 19 09/14/17 04:37 91 13 99 09/14/17 04:32 87 20 98 09/14/17 04:30 126/85 12/28/17 04:17 83 17 97 09/14/17 04:04 73 09/14/17 04:02 79 17 98 Room Air 09/14/17 04:00 135/73 09/14/17 03:50 113/92 09/14/17 03:35 36.9 91 20 121/75 99 Room Air Physical Exam HEENT: Head - normocephalic and atraumatic Pupils are equal, round, and reactive to light. Extraocular eye muscles are intact, and sclera are anicteric. Nose - moist nasal mucosa without discharge. Mouth - moist buccal mucosa. Oropharynx is nonerythematous and there is no tonsillar exudate or edema noted. Neck: Supple; no JVD, nuchal rigidity, cervical lymphadenopathy. Heart: Regular rate and rhythm. There is a normal S1 and S2 with no murmurs, clicks, or gallops appreciated. Lungs: Clear to auscultation bilaterally with no wheezes, rales, or rhonchi. Abdomen: Soft, completely nontender, nondistended, with good bowel sounds. There are no palpable pulsatile masses or hepatosplenomegaly. There is no guarding, rigidity, or rebound noted. Extremities: No evidence of cyanosis, clubbing, or edema. There are easily palpable peripheral pulses. Skin: warm and dry with good turgor and no rashes. Medical Decision & Procedures Laboratory Results 09/14/17 04:50 Red Blood Count 4.74, Mean Corpuscular Volume 89.2, Mean Corpuscular Hemoglobin 30.2, Mean Corpuscular Hemoglobin Concent 33.8, Mean Platelet Volume 11.1, Neutrophils (%) (Auto) 66.8, Lymphocytes (%) (Auto) 22.1, Monocytes (%) (Auto) 6.5, Eosinophils (%) (Auto) 3.9, Basophils (%) (Auto) 0.5, Neutrophils # (Auto) 5.77, Lymphocytes # (Auto) 1.91, Monocytes # (Auto) 0.56, Eosinophils # (Auto) 0.34, Basophils # (Auto) 0.04 09/14/17 04:50 Test 09/14/17 04:50 09/14/17 05:50 09/14/17 06:03 White Blood Count 8.64 K/uL (4.8-10.8) Red Blood Count 4.74 M/uL (4.2-5.4) Hemoglobin 14.3 g/dL (12.0-16.0) Hematocrit 42.3 % (37-47) Mean Corpuscular Volume 89.2 fL (80-100) Mean Corpuscular Hemoglobin 30.2 pg (25-34) Mean Corpuscular Hemoglobin Concent 33.8 g/dl (32-36) Platelet Count 248 K/uL (130-400) Mean Platelet Volume 11.1 fL (7.4-10.4) Neutrophils (%) (Auto) 66.8 % Lymphocytes (%) (Auto) 22.1 % Monocytes (%) (Auto) 6.5 % Eosinophils (%) (Auto) 3.9 % Basophils (%) (Auto) 0.5 % Neutrophils # (Auto) 5.77 K/uL (1.4-6.5) Lymphocytes # (Auto) 1.91 K/uL (1.2-3.4) Monocytes # (Auto) 0.56 K/uL (0.11-0.59) Eosinophils # (Auto) 0.34 K/uL (0-0.5) Basophils # (Auto) 0.04 K/uL (0-0.2) RDW Standard Deviation 45.5 fL (36.4-46.3) RDW Coefficient of Variation 13.8 % (11.5-14.5) Immature Granulocyte % (Auto) 0.2 % Immature Granulocyte # (Auto) 0.02 K/uL (0.00-0.02) Anion Gap 4.0 mmol/L (3-11) Est Creatinine Clear Calc Drug Dose 110.2 ml/min Estimated GFR () 102.9 Estimated GFR (Non- 88.8 BUN/Creatinine Ratio 5.2 (10-20) Calcium Level 9.1 mg/dl (8.5-10.1) Total Bilirubin 3.8 mg/dl (0.2-1) Direct Bilirubin 3.0 mg/dl (0-0.2) Aspartate Amino Transf (AST/SGOT) 296 U/L (15-37) Alanine Aminotransferase (ALT/SGPT) 267 U/L (12-78) Alkaline Phosphatase 95 U/L (45-117) Total Protein 7.4 gm/dl (6.4-8.2) Albumin 3.3 gm/dl (3.4-5.0) Urine Color ORANGE Urine Appearance CLEAR (CLEAR) Urine pH 6.5 (4.5-7.5) Urine Specific [place] 1.025 (1.000-1.030) Urine Protein NEG (NEG) Urine Glucose (UA) NEG (NEG) Urine Ketones NEG (NEG) Urine Occult Blood NEG (NEG) Urine Nitrite POS (NEG) Urine Bilirubin 3+ (NEG) Urine Urobilinogen NEG (NEG) Urine Leukocyte Esterase SMALL (NEG) Urine WBC (Auto) 1-5 /hpf (0-5) Urine RBC (Auto) 0-4 /hpf (0-4) Urine Hyaline Casts (Auto) 0 /lpf (0-5) Urine Epithelial Cells (Auto) >30 /lpf (0-5) Urine Bacteria (Auto) NEG (NEG) Urine Mucus PRESENT (NONE PRSENT) Urine Yeast (Auto) (NONE PRSENT) Urine Opiates Screen NEG (NEG) Urine Methadone, Qualitative NEG (NEG) Urine Barbiturates NEG (NEG) Urine Phencyclidine (PCP) Level NEG (NEG) Ur Amphetamine/Methamphetamine NEG (NEG) MDMA (Ecstasy) Screen POS (NEG) Urine Benzodiazepines Screen NEG (NEG) Urine Cocaine Metabolite NEG (NEG) Urine Marijuana (THC) NEG (NEG) Ammonia 13.0 umol/L (11-32) Laboratory results per my review. Medications Administered Medications (Trade) Dose Ordered Sig/Jesse Route Start Time Stop Time Status Last Admin Dose Admin Sodium Chloride 500 ml @ 999 mls/hr Q31M STAT IV 09/14/17 04:39 09/14/17 05:09 DC 09/14/17 04:58 999 MLS/HR Ondansetron HCl (Zofran Inj) 4 mg NOW STAT IV 09/14/17 04:39 09/14/17 04:41 DC 09/14/17 05:00 4 MG Lorazepam (Ativan Inj) 1 mg NOW STAT IV 09/14/17 05:31 09/14/17 05:33 DC 09/14/17 05:39 1 MG Procedure Zofran Inj 4 mg IV Sodium Chloride 500 ml @ 999 mls/hr IV Ativan Inj 1 mg IV ED Course 0401: Past medical records reviewed. The patient was evaluated in room B4B. A complete history and physical exam was performed. An IV lock was initiated and labs are drones above. 0439: Ordered Zofran Inj 4 mg IV, Sodium Chloride 500 ml @ 999 mls/hr IV 0531: She had significant relief of the nausea but was still anxious. I Ordered Ativan Inj 1 mg IV 0541: I updated the patient on her results so far. 0614: The patient asked for pain medications, but I did not feel that they would be appropriate at this time. 0645: Upon reevaluation, I discussed findings and results with her. She verbalized agreement of the treatment plan. I spoke with Dr. Finnegan of the [facility]. The patient will be evaluated for further management and care. 0700:The patient continued to complain of abdominal pain and chest pain. She was given IV Toradol. She had no further episodes of vomiting while here in the emergency department. Medical Decision The patient is a 32 year old female who presents to the ED with episodes of vomiting. Differential diagnosis includes medication side effects, anxiety, gastritis, viral illness, and dehydration. Laboratory Results: Normal white blood cell count, stable H&H, potassium slightly low 3.3, normal renal function, glucose 88, total bilirubin 3.8, direct bilirubin 3.0, AST 297, ALT 267, urinalysis revealed positive nitrites, small amount of leukocyte esterase, greater than 30 epithelial cells, mucous present, and ammonia level of 13. The patient describes persistent vomiting over the past couple of days and not being able to keep anything down. She does look somewhat dehydrated on physical exam. She had no vomiting while here in the emergency department. The patient has significantly elevated direct bilirubin and total bilirubin along with her transaminases. These laboratory values were normal just 9 days ago. I have added an acute hepatitis panel. [facility]. Medication Reconcilliation Current Medication List: was personally reviewed by me Blood Pressure Screening Patient's blood pressure: Normal blood pressure Blood pressure disposition: Did not require urgent referral Consults Time Called: 0640 Consulting Physician: Dr. Finnegan - [facility] Returned Call: [phone] Discussed the patient's case. The patient will be evaluated for further management. Impression Primary Impression: Acute hepatitis Additional Impression: Vomiting Scribe Attestation The scribe's documentation has been prepared under my direction and personally reviewed by me in its entirety. I confirm that the note above accurately reflects all work, treatment, procedures, and medical decision making performed by me. Departure Information Dispostion Being Evaluated By Hospitalist Referrals No Doctor, Assigned (PCP) Patient Instructions [facility] Problem Qualifiers Additional Impression: Vomiting Vomiting type: unspecified Vomiting Intractability: non-intractable Nausea presence: with nausea Qualified Codes: R11.2 - Nausea with vomiting, unspecified
[2017-09-14 05:01] LABS: BASO % 0.5 %; BASO ABS # 0.04 K/uL (0-0.2); EOS % 3.9 %; EOS ABS # 0.34 K/uL (0-0.5); HEMATOCRIT 42.3 % (37-47); HEMOGLOBIN 14.3 g/dL (12.0-16.0); IG# 0.02 K/uL (0.00-0.02); LYMPH % 22.1 %; LYMPH ABS # 1.91 K/uL (1.2-3.4); MEAN CELL VOLUME 89.2 fL (80-100); MEAN CORPUSCULAR HEMOGLOBIN 30.2 pg (25-34); MEAN CORPUSCULAR HGB CONC 33.8 g/dl (32-36); MEAN PLATELET VOLUME 11.1 fL (7.4-10.4); MONO % 6.5 %; MONO ABS # 0.56 K/uL (0.11-0.59); NEUT % 66.8 %; NEUT ABS # 5.77 K/uL (1.4-6.5); PLATELET COUNT 248 K/uL (130-400); RED CELL DISTRIBUTION WIDTH CV 13.8 % (11.5-14.5); RED CELL DISTRIBUTION WIDTH SD 45.5 fL (36.4-46.3); WHITE BLOOD COUNT 8.64 K/uL (4.8-10.8)
[2017-09-14 05:19] LABS: ALBUMIN 3.3 gm/dl (3.4-5.0); CALCIUM 9.1 mg/dl (8.5-10.1); CREATININE 0.87 mg/dl (0.60-1.20); POTASSIUM 3.3 mmol/L (3.5-5.1)
[2017-09-14 05:22] LABS: TOTAL PROTEIN 7.4 gm/dl (6.4-8.2)
[2017-09-14] MEDS ORDERED: LORAZEPAM 2 MG/ML 1 ML VIAL IV STA (05:31)
[2017-09-14] MEDS ORDERED: KETOROLAC TROMETHAMINE 30 MG/ML VIAL IV STA (07:07)
[2017-09-14] MEDS ORDERED: NICOTINE 14 MG/24 HR TDSY TD SCH (09:00)
[2017-09-14] MEDS ORDERED: ONDANSETRON INJ 2 MG/ML 2 ML VIAL IV PRN (09:00)
[2017-09-14 09:20] LABS: HEP C IGG 13 YRS+OLDER_RFLX NEG (NEG)
--- NOTE | 2017-09-14 10:08 | DIAGNOSTIC IMAGING REPORT ---
PA CHEST RADIOGRAPH AND UPRIGHT AND SUPINE AP RADIOGRAPHS OF THE ABDOMEN CLINICAL HISTORY: Abdominal pain and vomiting. COMPARISON STUDY: Chest radiograph and CT of the abdomen and pelvis September 05, 2017. FINDINGS: Lung volumes are normal. Lungs are clear. No pneumothorax or pleural effusion is present. Cardiac mediastinal silhouette is normal. Pulmonary vascularity is normal. There is no free air. The bowel gas pattern is normal. Postoperative findings at the lumbosacral junction are noted. Pelvic calcifications reflect phleboliths. IMPRESSION: 1. No free air or evidence of bowel obstruction. 2. No acute cardiopulmonary findings. Electronically signed by: Calvin Ivory M.D. 09/14/2017 10:07 AM Dictated Date/Time: 09/14/2017 10:06 AM
[2017-09-14 11:15] VITALS: BP 118/83; PULSE 107; TEMP 37; BMI 32.4
[2017-09-14] MEDS ORDERED: POTASSIUM CHLORIDE 20 MEQ TABCR PO STA (11:53)
[2017-09-14] MEDS: D5W AND NSS 1,000 ML IV SCH ×2 (11:59→23:41)
[2017-09-14] MEDS ORDERED: KETOROLAC TROMETHAMINE 15 MG/ML VIAL IM STA (13:32)
--- NOTE | 2017-09-14 13:54 | History and Physical ---
History & Physical Date & Time of Service: Sep 14, 2017 ~ 8:30 Chief Complaint: Vomiting Primary Care Physician: Dr. Yamel Beavers History of Present Illness 32 year old female who presents to the ED with nausea and vomiting. Patient was recently seen in [facility] ED on 09/05 when she presented with altered mental status and headache. She was found to have a small subdural hematoma. Patient had denied any trauma. She was transferred to [facility] for further management. Per review of records, it was suspected that patient may have had an unwitnessed seizure causing head trauma. She was taken off of her citalopram, lorazepam, and bupropion and started on B12 and Keppra and continued on her gabapentin (however patient reports she has not been taking this). Patient reports feeling poorly since her admission. She has had persistent nausea and vomiting. She has been unable to keep anything down. She has had some lower abdominal pain. She denies diarrhea and actually has not had a bowel movement for a few days. She reports fever and chills but did not take her temperature at home. She has lightheadedness and dizziness but denies any syncopal events. No seizure like activity. She denies chest pain, shortness of breath, or palpitations. She reports her urine has been dark but denies other urinary symptoms. In the ER, patient's labs demonstrate a transaminitis. No imaging was preformed. Other labs are unremarkable. She is hemodynamically stable. Past Medical/Surgical History Medical Problems: (1) Mood disorder Status: Chronic (2) Pituitary tumor Status: Chronic (3) Right tibial fracture Permanent Comment: s/p repair Status: Chronic Surgical Problems: (1) H/O sinus surgery Status: Chronic (2) History of back surgery Status: Chronic (3) History of tubal ligation Status: Chronic (4) Hx of tonsillectomy Status: Chronic Family History FH: alcoholism FATHER MOTHER Social History Smoking Status: Current Every Day Smoker Alcohol Use: none 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) Immunizations History of Tetanus Vaccine?: Yes Tetanus Immunization Date: Jun 16, 2012 History of Pneumococcal: Yes Pneumococcal Date: May 02, 2014 History of Hepatitis B Vaccine: Yes Hepatitis Immunization Date: Nov 23, 1997 Multi-Drug Resistant Organisms History of MDRO: Yes Type of MDRO: MRSA Allergies Coded Allergies: Aspirin (Verified Allergy, Severe, SEVERE REACTION TO ANOTHER MEDICATION PT TAKES, 09/14/17) Ibuprofen (Verified Allergy, Intermediate, rash, 09/14/17) Ranitidine (Verified Allergy, Intermediate, HIVES, 09/14/17) Sulfa Antibiotics (Verified Allergy, Intermediate, HIVES AND ITCHING, ) Clindamycin (Verified Allergy, Unknown, Rash., 09/14/17) Home Medications Scheduled Bromocriptine Mesylate (Bromocriptine Mesylate), 2.5 MG PO DAILY Cyanocobalamin (Vitamin B 12), 1,000 MCG PO DAILY Gabapentin (Gabapentin), 300 MG PO TID Levetiracetam (Keppra), 500 MG PO BID Review of Systems ROS per HPI, all other systems reviewed and negative Physical Exam Vital Signs Date Time Temp Pulse Resp B/P (MAP) Pulse Ox O2 Delivery O2 Flow Rate FiO2 09/14/17 08:50 36.9 79 18 105/61 99 Room Air 09/14/17 07:54 79 18 133/71 99 Room Air 09/14/17 07:45 175 09/14/17 07:08 36.9 98 21 112/77 100 Room Air 09/14/17 06:30 120/75 09/14/17 06:27 77 21 100 09/14/17 05:42 88 13 97 09/14/17 05:37 101 16 99 Room Air 09/14/17 05:30 107/73 09/14/17 05:22 75 12 99 09/14/17 05:07 70 19 99 09/14/17 05:00 116/85 09/14/17 04:52 80 19 09/14/17 04:37 91 13 99 09/14/17 04:32 87 20 98 09/14/17 04:30 126/85 09/14/17 04:17 83 17 97 09/14/17 04:04 73 09/14/17 04:02 79 17 98 Room Air 09/14/17 04:00 135/73 09/14/17 03:50 113/92 09/14/17 03:35 36.9 91 20 121/75 99 Room Air General Appearance: WD/WN, no apparent distress Head: normocephalic, atraumatic Eyes: normal inspection, EOMI, sclerae normal ENT: hearing grossly normal, + pertinent finding (mucous membranes moist) Neck: supple, no JVD, trachea midline Respiratory/Chest: lungs clear, normal breath sounds, no respiratory distress Cardiovascular: regular rate, rhythm, no edema, normal peripheral pulses Abdomen/GI: normal bowel sounds, soft, no organomegaly, + tenderness (mild, lower abdominal ) Extremities/Musculoskelatal: normal inspection, no calf tenderness, normal capillary refill Neurologic/Psych: no motor/sensory deficits, alert, normal mood/affect, oriented x 3 Skin: normal color, warm/dry Diagnostics Laboratory Results Results Past 24 Hours Test 09/14/17 04:50 09/14/17 05:50 09/14/17 06:03 Range/Units White Blood Count 8.64 4.8-10.8 K/uL Red Blood Count 4.74 4.2-5.4 M/uL Hemoglobin 14.3 12.0-16.0 g/dL Hematocrit 42.3 37-47 % Mean Corpuscular Volume 89.2 80-100 fL Mean Corpuscular Hemoglobin 30.2 25-34 pg Mean Corpuscular Hemoglobin Concent 33.8 32-36 g/dl Platelet Count 248 130-400 K/uL Mean Platelet Volume 11.1 7.4-10.4 fL Neutrophils (%) (Auto) 66.8 % Lymphocytes (%) (Auto) 22.1 % Monocytes (%) (Auto) 6.5 % Eosinophils (%) (Auto) 3.9 % Basophils (%) (Auto) 0.5 % Neutrophils # (Auto) 5.77 1.4-6.5 K/uL Lymphocytes # (Auto) 1.91 1.2-3.4 K/uL Monocytes # (Auto) 0.56 0.11-0.59 K/uL Eosinophils # (Auto) 0.34 0-0.5 K/uL Basophils # (Auto) 0.04 0-0.2 K/uL RDW Standard Deviation 45.5 36.4-46.3 fL RDW Coefficient of Variation 13.8 11.5-14.5 % Immature Granulocyte % (Auto) 0.2 % Immature Granulocyte # (Auto) 0.02 0.00-0.02 K/uL Sodium Level 138 136-145 mmol/L Potassium Level 3.3 3.5-5.1 mmol/L Chloride Level 102 98-107 mmol/L Carbon Dioxide Level 32 21-32 mmol/L Anion Gap 4.0 3-11 mmol/L Blood Urea Nitrogen 4 7-18 mg/dl Creatinine 0.87 0.60-1.20 mg/dl Est Creatinine Clear Calc Drug Dose 110.2 ml/min Estimated GFR () 102.9 Estimated GFR (Non- 88.8 BUN/Creatinine Ratio 5.2 10-20 Random Glucose 88 70-99 mg/dl Calcium Level 9.1 8.5-10.1 mg/dl Magnesium Level 1.9 1.8-2.4 mg/dl Total Bilirubin 3.8 0.2-1 mg/dl Direct Bilirubin 3.0 0-0.2 mg/dl Aspartate Amino Transf (AST/SGOT) 296 15-37 U/L Alanine Aminotransferase (ALT/SGPT) 267 12-78 U/L Alkaline Phosphatase 95 45-117 U/L Total Protein 7.4 6.4-8.2 gm/dl Albumin 3.3 3.4-5.0 gm/dl Urine Color ORANGE Urine Appearance CLEAR CLEAR Urine pH 6.5 4.5-7.5 Urine Specific [place] 1.025 1.000-1.030 Urine Protein NEG NEG Urine Glucose (UA) NEG NEG Urine Ketones NEG NEG Urine Occult Blood NEG NEG Urine Nitrite POS NEG Urine Bilirubin 3+ NEG Urine Urobilinogen NEG NEG Urine Leukocyte Esterase SMALL NEG Urine WBC (Auto) 1-5 0-5 /hpf Urine RBC (Auto) 0-4 0-4 /hpf Urine Hyaline Casts (Auto) 0 0-5 /lpf Urine Epithelial Cells (Auto) >30 0-5 /lpf Urine Bacteria (Auto) NEG NEG Urine Mucus PRESENT NONE PRSENT Urine Yeast (Auto) NONE PRSENT Urine Opiates Screen NEG NEG Urine Methadone, Qualitative NEG NEG Urine Barbiturates NEG NEG Urine Phencyclidine (PCP) Level NEG NEG Ur Amphetamine/Methamphetamine NEG NEG MDMA (Ecstasy) Screen POS NEG Urine Benzodiazepines Screen NEG NEG Urine Cocaine Metabolite NEG NEG Urine Marijuana (THC) NEG NEG Ammonia 13.0 11-32 umol/L Hepatitis B Surface Antigen NEG NEG Hepatitis C Antibody NEG NEG Diagnostic Radiology CXR IMPRESSION: 1. No free air or evidence of bowel obstruction. 2. No acute cardiopulmonary findings. Impression Assessment and Plan TRANSAMINITIS - admit to med/sug - patient presenting with persistent nausea and vomiting - in the ED, found to have transaminitis (t. bili 3.8, AST 296, ALT 267) - ? viral etiology - will get RUQ US - hepatitis panel, HIV testing - GI consult, case discussed with BHUMI Ward RECENT SUBDURAL HEMATOMA - recent admission at [facility] - per review of records, it was thought that patient had an unwitnessed seizure leading to head trauma causing the subdural - patient has psychiatric history and Wellbutrin (due to precipitating seizures ) and Celexa (due to antiplatelet properties) were discontinued - patient was continued on gabapentin and started on Keppra - patient requesting to discontinue Keppra and go back on her prior meds - will consult neuro for recommendations MOOD DISORDER - meds as above HX PITUITARY TUMOR - continue bromocriptine DVT PROPHYLAXIS - SCDs due to recent subdural hematoma DISPO - In my clinical judgment this beneficiary meets acute admission criteria, established by [facility], that includes being hospitalized through two midnights. Attending addendum: Agree with the above H&P; please refer to above for more details. Patient with multiple concerns/complaints; reports headache and body aches, states she has N/V but is anxious to try and eat. Denies any chest or abdominal pain. States she feels odd as if her skin is crawling and is worried about withdrawing from her psych meds. She also reports not taking keppra because they made her "feel weird" Cardiac: RR, S1 and S2 auscultated Respiratory: CTA B/L GI: soft, NT, ND, + BS TRANSAMINITIS: -RUQ US pending -GI consulted -patient on clear liquids for now -hepatitis panel is pending -repeat labs in the AM HEADACHES/BODY ACHES: -influenza negative -no leukocytosis or source for infection -check for EBV/mono -trial of toradol PRN pain RECENT SDH: -will consult Neuro regarding need for seizure medications DEPRESSION/BIPOLAR: -will consult Psych regarding medications and possible alternatives to wellbutrin as this was presumably stopped due recent SDH and question of whether the bleed occurred from an unwitnessed seizure VTE Prophylaxis VTE Risk Assessment Done? Y/N: Yes Risk Level: Low
--- NOTE | 2017-09-14 14:21 | Gastrointestinal Consultation ---
Gastrointestinal Consultation Date of Consultation: Sep 14, 2017 Attending Physician: Laisha Harrington Consulting Physician: Tutu Castro Reason for Consultation: Elevated LFTs History of Present Illness Patient is a 32 year old female who presented to ED w c/o N/V since 5 days ago. She was seen in ED 1 week ago for global amnesia, and AMS, TAYLOR, found to have small subdural hematoma. She was then transferred to [facility] for further care. No surgeries there. She was DC'd on Keppra & B12. Her previous psych meds including Citalopram, Lorazepam, Buproprion was held during her hospitalization there too. Since DC'd home she felt weak, and nauseous. She reports having fever , chills but didn't take temp. Has some abd pain across lower abd area. Denies any CP, SOB. Denies any bowel habit changes, sick contact, URI/flu like symptoms. VS stable. Labs here showed normal CBC, BMP though LFTs elevated: Tbili 3.8, Dbili 3, AST 296, ALT 267, Alk phos 95. Lipase not obtained. Liver serologies negative for Hep B, C, HSV II so far. She tested positive for MDMA (Ecstasy). Chest and abd xray unremarkable. Liver u/s ordered and pending. Pt has multiple tattoos, denies ETOH or illicit drugs (though MDMA positive and chart showed hx of cocaine & meth use). Though said been around friends who smoke meth. Hx of blood donation in the past. Besides her home meds (reviewed list) she denies any herbal supplements etc. Also no regular APAP uses Past Medical/Surgical History Medical Problems: (1) Abdominal pain Status: Acute (2) Back pain Status: Acute (3) Bronchitis Status: Acute (4) Cellulitis of right ankle Status: Acute (5) Chronic pain Status: Acute (6) Chronic pain Status: Acute (7) Epigastric abdominal pain Status: Acute (8) Fatigue Status: Acute (9) Headache Status: Acute (10) Headache Status: Acute (11) Hematemesis Status: Acute (12) Lower back pain Status: Acute (13) Precordial chest pain Status: Acute (14) Rectal bleeding Status: Acute (15) Sore throat Status: Acute (16) Trichomonas vaginitis Status: Acute (17) UTI (urinary tract infection) Status: Acute (18) UTI (urinary tract infection) Status: Acute (19) Vomiting Status: Acute (20) Vomiting blood Status: Acute Social History Problems: (1) Previous back surgery Status: Acute Past Medical History: See above, also hx of anxiety/depression, asthma, cocaine use, ovarian cyst, pituitary adenoma, spondylolithesis, suicidal ideations Past Surgical History: Tonsillectomy and adenoidectomy Back surgery Tubal ligation' ORIF R tibia fracture Sinus surgery Family History FH: alcoholism FATHER MOTHER Social History Smoking Status: Current Every Day Smoker Alcohol Use: occasionally 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) Housing Status: lives alone Allergies Coded Allergies: Aspirin (Verified Allergy, Severe, SEVERE REACTION TO ANOTHER MEDICATION PT TAKES, 09/14/17) Ibuprofen (Verified Allergy, Intermediate, rash, 09/14/17) Ranitidine (Verified Allergy, Intermediate, HIVES, 09/14/17) Sulfa Antibiotics (Verified Allergy, Intermediate, HIVES AND ITCHING, ) Clindamycin (Verified Allergy, Unknown, Rash., 09/14/17) Current Medications Home Meds and Scripts Medications Dose Route/Sig Max Daily Dose Days Date Category Keppra (Levetiracetam) 250 Mg Tab 500 Mg PO BID 09/14/17 Reported Vitamin B 12 (Cyanocobalamin) 250 Mcg Blaise 1,000 Mcg PO DAILY 09/14/17 Reported Gabapentin 300 Mg Cap 300 Mg PO TID 11/28/16 Reported Bromocriptine Mesylate 2.5 Mg Tab 2.5 Mg PO DAILY 07/22/15 Reported Review of Systems Constitutional: + fever, + chills, + weakness Respiratory: No cough, No shortness of breath Cardiac: No chest pain Abdomen: + pain (lower abd ), + nausea, + vomiting, No diarrhea, No constipation, No GI bleeding Skin: No rash, No itch, No jaundice Physical Exam Date Time Temp Pulse Resp B/P (MAP) Pulse Ox O2 Delivery O2 Flow Rate FiO2 09/14/17 11:15 Room Air 09/14/17 11:15 37.0 107 18 118/83 Room Air 09/14/17 10:57 36.9 79 18 105/61 99 09/14/17 08:50 36.9 79 18 105/61 99 Room Air 09/14/17 07:54 79 18 133/71 99 Room Air 09/14/17 07:45 175 09/14/17 07:08 36.9 98 21 112/77 100 Room Air 09/14/17 06:30 120/75 09/14/17 06:27 77 21 100 09/14/17 05:42 88 13 97 09/14/17 05:37 101 16 99 Room Air 09/14/17 05:30 107/73 09/14/17 05:22 75 12 99 09/14/17 05:07 70 19 99 09/14/17 05:00 116/85 09/14/17 04:52 80 19 09/14/17 04:37 91 13 99 09/14/17 04:32 87 20 98 09/14/17 04:30 126/85 09/14/17 04:17 83 17 97 09/14/17 04:04 73 09/14/17 04:02 79 17 98 Room Air 09/14/17 04:00 135/73 09/14/17 03:50 113/92 09/14/17 03:35 36.9 91 20 121/75 99 Room Air General Appearance: WD/WN, no apparent distress Eyes: normal inspection, PERRL, EOMI Neck: supple, no JVD, trachea midline Respiratory/Chest: normal breath sounds, no respiratory distress, no accessory muscle use Cardiovascular: regular rate, rhythm, no gallop, no murmur Abdomen: normal bowel sounds, soft, + tenderness (mid abd ) Extremities: normal inspection, no pedal edema, no calf tenderness Neurologic/Psych: alert, normal mood/affect, oriented x 3 Skin: normal color, no jaundice, no rash Laboratory Results Last 24 Hours Test 09/14/17 04:50 09/14/17 05:50 09/14/17 06:03 09/14/17 12:05 White Blood Count 8.64 K/uL Red Blood Count 4.74 M/uL Hemoglobin 14.3 g/dL Hematocrit 42.3 % Mean Corpuscular Volume 89.2 fL Mean Corpuscular Hemoglobin 30.2 pg Mean Corpuscular Hemoglobin Concent 33.8 g/dl Platelet Count 248 K/uL Mean Platelet Volume 11.1 fL Neutrophils (%) (Auto) 66.8 % Lymphocytes (%) (Auto) 22.1 % Monocytes (%) (Auto) 6.5 % Eosinophils (%) (Auto) 3.9 % Basophils (%) (Auto) 0.5 % Neutrophils # (Auto) 5.77 K/uL Lymphocytes # (Auto) 1.91 K/uL Monocytes # (Auto) 0.56 K/uL Eosinophils # (Auto) 0.34 K/uL Basophils # (Auto) 0.04 K/uL RDW Standard Deviation 45.5 fL RDW Coefficient of Variation 13.8 % Immature Granulocyte % (Auto) 0.2 % Immature Granulocyte # (Auto) 0.02 K/uL Sodium Level 138 mmol/L Potassium Level 3.3 mmol/L Chloride Level 102 mmol/L Carbon Dioxide Level 32 mmol/L Anion Gap 4.0 mmol/L Blood Urea Nitrogen 4 mg/dl Creatinine 0.87 mg/dl Est Creatinine Clear Calc Drug Dose 110.2 ml/min Estimated GFR () 102.9 Estimated GFR (Non- 88.8 BUN/Creatinine Ratio 5.2 Random Glucose 88 mg/dl Calcium Level 9.1 mg/dl Magnesium Level 1.9 mg/dl Ferritin 79.4 ng/ml Total Bilirubin 3.8 mg/dl Direct Bilirubin 3.0 mg/dl Aspartate Amino Transf (AST/SGOT) 296 U/L Alanine Aminotransferase (ALT/SGPT) 267 U/L Alkaline Phosphatase 95 U/L Total Protein 7.4 gm/dl Albumin 3.3 gm/dl Urine Color ORANGE Urine Appearance CLEAR Urine pH 6.5 Urine Specific [place] 1.025 Urine Protein NEG Urine Glucose (UA) NEG Urine Ketones NEG Urine Occult Blood NEG Urine Nitrite POS Urine Bilirubin 3+ Urine Urobilinogen NEG Urine Leukocyte Esterase SMALL Urine WBC (Auto) 1-5 /hpf Urine RBC (Auto) 0-4 /hpf Urine Hyaline Casts (Auto) 0 /lpf Urine Epithelial Cells (Auto) >30 /lpf Urine Bacteria (Auto) NEG Urine Mucus PRESENT Urine Yeast (Auto) Urine Opiates Screen NEG Urine Methadone, Qualitative NEG Urine Barbiturates NEG Urine Phencyclidine (PCP) Level NEG Ur Amphetamine/Methamphetamine NEG MDMA (Ecstasy) Screen POS Urine Benzodiazepines Screen NEG Urine Cocaine Metabolite NEG Urine Marijuana (THC) NEG Ammonia 13.0 umol/L Hepatitis B Surface Antigen NEG Hepatitis C Antibody NEG HIV (1&2) Ab and P24 Ag, 4th Gener NEG Impression Patient is a 32 year old female seen for elevated LFTs, new from baseline. Hx of subdural hematoma transferred to [facility] last week. Started on Keppra and B12 since last week but otherwise no new meds. In fact psych meds as noted in HPI above were held during her [facility] admission. She does have n/v, lower abd tenderness. Chest, abd xray negative. Hx of meth, cocaine abuses, and not utox + for MDMA (ecstasy) but she denies any illicit drugs. + tattoos. Hep B and C came back negative. HSV II negative. Plan - Add Lipase to AM labs - Awaiting Liver u/s results - Will f/u labs/serologies to r/o acute/viral hepatitis, AIH, hereditary liver diseases. Addendum: Liver u/s showed thickened gallbladder with impacted stone in gallbladder neck, CBD 8mm. Discussed w Dr. Castro, will obtain MRCP, if positive plan on ERCP procedure tomorrow. Pls keep pt NPO after midnight. Primary team already consulting General Surgery. ATTESTATION: I have performed a history and physical examination of this patient and reviewed the electronic record. Specifically, on physical examination there is mild epigastric tenderness. I have discussed the case with BHUMI Ward. The above note reflects my findings, conclusions, and recommendations. Tutu Castro MD
--- NOTE | 2017-09-14 14:52 | DIAGNOSTIC IMAGING REPORT ---
ABDOMINAL ULTRASOUND, RIGHT UPPER QUADRANT HISTORY: transaminitis. COMPARISON: Abdomen and pelvis CT 09/05/2017. FINDINGS: Pancreas: The pancreatic head and tail are obscured by overlying bowel gas. The remaining portions of the pancreas are within normal limits. Liver: The liver is echogenic consistent with fatty change. Mild central intrahepatic bile duct dilatation. Gallbladder: The gallbladder carrasquillo thickened up to 5 mm. There is a stone at the neck of the gallbladder which appears impacted. This measures 1 cm. There is also sludge seen within the gallbladder. CBD: Distended up to 8 mm. Right kidney: No hydronephrosis. IMPRESSION: 1. Thick-walled gallbladder with an impacted 1 cm stone at the gallbladder neck. There is also mild intra and extra hepatic bile duct dilatation. Findings are highly suspicious for acute cholecystitis. 2. Hepatic steatosis. Electronically signed by: Roly Montaño M.D. 09/14/2017 2:51 PM Dictated Date/Time: 09/14/2017 2:47 PM
[2017-09-14 15:21] VITALS: BP 100/70; PULSE 94; TEMP 36.5; O2SAT 100
[2017-09-14] MEDS ORDERED: PIPERACILL/TAZOBAC CONSULT ACTIVE PRN (16:00)
[2017-09-14] MEDS ORDERED: PIPERACILL/TAZOBAC IV 3.375 GM in DEXTROSE 5% 100ML IV ONE (16:00)
[2017-09-14] MEDS ORDERED: LORAZEPAM INJ 1 MG in SYRINGE 0.5 ML IV PRN (16:15)
[2017-09-14] MEDS ORDERED: MoRPHine SULFATE 2 MG/ML CARP IV PRN ×2 (17:00)
[2017-09-14] MEDS: MoRPHine SULFATE 4 MG/ML 1 ML CARP\\VIAL IV PRN ×2 (17:14→20:22)
[2017-09-14] MEDS: GABAPENTIN 300 MG CAP PO SCH ×2 (17:14→21:00)
--- NOTE | 2017-09-14 17:15 | NUR ---
PSYCHIATRIC LIAISON NURSE-- Met with patient who consents to interview. Pt has hx of Bipolar D/O with 7 previous inpatient hospitalizations. She was most recently on the medical floor at [facility] approximately 2 weeks ago and her psychiatric medications were stopped completely d/t concerns of seizures. She states that the meds she was on "were finally working and I was stable. Now it's gonna screw me all up!" She sees Dr. Aquino @ [facility] for psychiatry and this RN obtained an MARVEL which will be faxed for records. Records received for [facility] and a psychiatric consultation was received. This consultation will be forwarded to the psychiatric clinicians for review. The patient denies having active suicidal ideation, denies SIB/HI, denies hallucinations/delusions. She scored a 5 on the PHQ-9 depression scale which is low risk. She rates her current anxiety level at a 7, but this is d/t her hospitalization and upcoming procedure this evening in which she is NPO. She states she has appointments with her providers (could not provide dates), and states she has good supports in her mother, her aunt, her boyfriend whom stays with her, and she has 2 good friends who she can count on for support. She is aware a energy systems engineer will be in to see her in the morning and she is looking forward to getting her medications figured out so she doesn't decompensate. Will forward all information to psychiatric clinicians.
--- NOTE | 2017-09-14 17:38 | Medical Consult ---
Consultation Date of Consultation: Sep 14, 2017. Attending Physician: Laisha Harrington D.O. Reason for Consultation: Acute Cholecystitis History of Present Illness 32-year-old female presented to [facility] ED for abdominal pain, nausea and vomiting X 5 days. Patient was previously seen in the ED roughly 1 week ago for altered mental status and headache. It was determined that patient had a small subdural hematoma. It was possible that she may have suffered a seizure and hit her head- patient denies this. Patient was then transferred to [facility] for further evaluation. She reports that she was started on Keppra. She was discharged 3 days later and this is when her stomach pain, nausea, and vomiting began. She reports that she has not had a bowel movement in the last few days. She reports that she has eaten very little over the past few days. Patient denies previous abdominal surgeries. Past Medical/Surgical History Medical Problems: (1) Abdominal pain Status: Acute (2) Back pain Status: Acute (3) Bronchitis Status: Acute (4) Cellulitis of right ankle Status: Acute (5) Chronic pain Status: Acute (6) Chronic pain Status: Acute (7) Epigastric abdominal pain Status: Acute (8) Fatigue Status: Acute (9) Headache Status: Acute (10) Headache Status: Acute (11) Hematemesis Status: Acute (12) Lower back pain Status: Acute (13) Precordial chest pain Status: Acute (14) Rectal bleeding Status: Acute (15) Sore throat Status: Acute (16) Trichomonas vaginitis Status: Acute (17) UTI (urinary tract infection) Status: Acute (18) UTI (urinary tract infection) Status: Acute (19) Vomiting Status: Acute (20) Vomiting blood Status: Acute Social History Problems: (1) Previous back surgery Status: Acute Family History FH: alcoholism FATHER MOTHER Social History Smoking Status: Current Every Day Smoker Alcohol Use: none 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) Housing Status: lives alone Allergies Coded Allergies: Aspirin (Verified Allergy, Severe, SEVERE REACTION TO ANOTHER MEDICATION PT TAKES, 09/14/17) Ibuprofen (Verified Allergy, Intermediate, rash, 09/14/17) Ranitidine (Verified Allergy, Intermediate, HIVES, 09/14/17) Sulfa Antibiotics (Verified Allergy, Intermediate, HIVES AND ITCHING, ) Clindamycin (Verified Allergy, Unknown, Rash., 09/14/17) Current Inpatient Medications Current Inpatient Medications Medications (Trade) Dose Ordered Sig/Jesse Route Start Time Stop Time Status Last Admin Dose Admin Ondansetron HCl (Zofran Inj) 4 mg Q6H PRN IV 09/14/17 09:00 10/14/17 08:59 Dextrose/Sodium Chloride 1,000 ml @ 80 mls/hr [id number] IV 09/14/17 12:00 10/14/17 11:59 09/14/17 11:59 80 MLS/HR Bromocriptine Mesylate (Parlodel Tab) 2.5 mg DAILY PO 09/15/17 09:00 10/15/17 08:59 Gabapentin (Neurontin Cap) 300 mg TID PO 09/14/17 14:00 10/14/17 13:59 Cyanocobalamin (Vitamin B-12 Tab) 1,000 mcg DAILY PO 09/15/17 09:00 10/15/17 08:59 Bupropion HCl (Wellbutrin Tab) 75 mg BID PO 09/14/17 21:00 10/14/17 20:59 Piperacillin Sod/ Tazobactam Sod (Consult) 1 ea UD PRN N/A 09/14/17 16:00 10/14/17 15:59 Piperacillin Sod/ Tazobactam Sod 3.375 gm/Dextrose 115 ml @ 28.75 mls/ hr Q8H IV 09/15/17 00:00 09/24/17 15:59 Lorazepam 1 mg/ Syringe 1 ml @ 0.5 mls/min ONE PRN IV 09/14/17 16:15 09/15/17 16:14 Morphine Sulfate (MoRPHine SULFATE INJ) 2 mg Q3H PRN IV 09/14/17 17:00 09/28/17 16:59 Morphine Sulfate (MoRPHine SULFATE INJ) 2 mg Q3H PRN IV 09/14/17 17:00 09/28/17 16:59 Morphine Sulfate (MoRPHine SULFATE INJ) 4 mg Q3H PRN IV 09/14/17 17:00 09/28/17 16:59 Review of Systems Constitutional: No fever, No chills Abdomen: + pain, + nausea, + vomiting, + constipation, + problem reported ( abdominal pain below umbilicus that radiates up to RUQ and around to back. ) Physical Exam Date Time Temp Pulse Resp B/P (MAP) Pulse Ox O2 Delivery O2 Flow Rate FiO2 09/14/17 15:21 36.5 94 18 100/70 (80) 100 Room Air 09/14/17 11:15 Room Air 09/14/17 11:15 37.0 107 18 118/83 Room Air 09/14/17 10:57 36.9 79 18 105/61 99 09/14/17 08:50 36.9 79 18 105/61 99 Room Air 09/14/17 07:54 79 18 133/71 99 Room Air 09/14/17 07:45 175 09/14/17 07:08 36.9 98 21 112/77 100 Room Air 09/14/17 06:30 120/75 09/14/17 06:27 77 21 100 09/14/17 05:42 88 13 97 09/14/17 05:37 101 16 99 Room Air 09/14/17 05:30 107/73 09/14/17 05:22 75 12 99 09/14/17 05:07 70 19 99 09/14/17 05:00 116/85 09/14/17 04:52 80 19 09/14/17 04:37 91 13 99 09/14/17 04:32 87 20 98 09/14/17 04:30 126/85 09/14/17 04:17 83 17 97 09/14/17 04:04 73 09/14/17 04:02 79 17 98 Room Air 09/14/17 04:00 135/73 09/14/17 03:50 113/92 09/14/17 03:35 36.9 91 20 121/75 99 Room Air General Appearance: WD/WN, no apparent distress Head: normocephalic, atraumatic Eyes: normal inspection Respiratory/Chest: no respiratory distress, no accessory muscle use Abdomen/GI: soft, + pertinent finding (tender to palpation in RUQ and near umbilicus. ) Skin: normal color, warm/dry, no rash Laboratory Results Last 24 Hours Test 09/14/17 04:50 09/14/17 05:50 09/14/17 06:03 09/14/17 12:05 White Blood Count 8.64 K/uL Red Blood Count 4.74 M/uL Hemoglobin 14.3 g/dL Hematocrit 42.3 % Mean Corpuscular Volume 89.2 fL Mean Corpuscular Hemoglobin 30.2 pg Mean Corpuscular Hemoglobin Concent 33.8 g/dl Platelet Count 248 K/uL Mean Platelet Volume 11.1 fL Neutrophils (%) (Auto) 66.8 % Lymphocytes (%) (Auto) 22.1 % Monocytes (%) (Auto) 6.5 % Eosinophils (%) (Auto) 3.9 % Basophils (%) (Auto) 0.5 % Neutrophils # (Auto) 5.77 K/uL Lymphocytes # (Auto) 1.91 K/uL Monocytes # (Auto) 0.56 K/uL Eosinophils # (Auto) 0.34 K/uL Basophils # (Auto) 0.04 K/uL RDW Standard Deviation 45.5 fL RDW Coefficient of Variation 13.8 % Immature Granulocyte % (Auto) 0.2 % Immature Granulocyte # (Auto) 0.02 K/uL Sodium Level 138 mmol/L Potassium Level 3.3 mmol/L Chloride Level 102 mmol/L Carbon Dioxide Level 32 mmol/L Anion Gap 4.0 mmol/L Blood Urea Nitrogen 4 mg/dl Creatinine 0.87 mg/dl Est Creatinine Clear Calc Drug Dose 110.2 ml/min Estimated GFR () 102.9 Estimated GFR (Non- 88.8 BUN/Creatinine Ratio 5.2 Random Glucose 88 mg/dl Calcium Level 9.1 mg/dl Magnesium Level 1.9 mg/dl Ferritin 79.4 ng/ml Total Bilirubin 3.8 mg/dl Direct Bilirubin 3.0 mg/dl Aspartate Amino Transf (AST/SGOT) 296 U/L Alanine Aminotransferase (ALT/SGPT) 267 U/L Alkaline Phosphatase 95 U/L Total Protein 7.4 gm/dl Albumin 3.3 gm/dl Lipase 154 U/L Urine Color ORANGE Urine Appearance CLEAR Urine pH 6.5 Urine Specific Bardolph 1.025 Urine Protein NEG Urine Glucose (UA) NEG Urine Ketones NEG Urine Occult Blood NEG Urine Nitrite POS Urine Bilirubin 3+ Urine Urobilinogen NEG Urine Leukocyte Esterase SMALL Urine WBC (Auto) 1-5 /hpf Urine RBC (Auto) 0-4 /hpf Urine Hyaline Casts (Auto) 0 /lpf Urine Epithelial Cells (Auto) >30 /lpf Urine Bacteria (Auto) NEG Urine Mucus PRESENT Urine Yeast (Auto) Urine Opiates Screen NEG Urine Methadone, Qualitative NEG Urine Barbiturates NEG Urine Phencyclidine (PCP) Level NEG Ur Amphetamine/Methamphetamine NEG MDMA (Ecstasy) Screen POS Urine Benzodiazepines Screen NEG Urine Cocaine Metabolite NEG Urine Marijuana (THC) NEG Ammonia 13.0 umol/L Hepatitis B Surface Antigen NEG Hepatitis C Antibody NEG HIV (1&2) Ab and P24 Ag, 4th Gener NEG ABDOMINAL ULTRASOUND, RIGHT UPPER QUADRANT HISTORY: transaminitis. COMPARISON: Abdomen and pelvis CT 09/05/2017. FINDINGS: Pancreas: The pancreatic head and tail are obscured by overlying bowel gas. The remaining portions of the pancreas are within normal limits. Liver: The liver is echogenic consistent with fatty change. Mild central intrahepatic bile duct dilatation. Gallbladder: The gallbladder carrasquillo thickened up to 5 mm. There is a stone at the neck of the gallbladder which appears impacted. This measures 1 cm. There is also sludge seen within the gallbladder. CBD: Distended up to 8 mm. Right kidney: No hydronephrosis. IMPRESSION: 1. Thick-walled gallbladder with an impacted 1 cm stone at the gallbladder neck. There is also mild intra and extra hepatic bile duct dilatation. Findings are highly suspicious for acute cholecystitis. 2. Hepatic steatosis. Electronically signed by: Roly Montaño M.D. 09/14/2017 2:51 PM Dictated Date/Time: 09/14/2017 2:47 PM PA CHEST RADIOGRAPH AND UPRIGHT AND SUPINE AP RADIOGRAPHS OF THE ABDOMEN CLINICAL HISTORY: Abdominal pain and vomiting. COMPARISON STUDY: Chest radiograph and CT of the abdomen and pelvis September 05, 2017. FINDINGS: Lung volumes are normal. Lungs are clear. No pneumothorax or pleural effusion is present. Cardiac mediastinal silhouette is normal. Pulmonary vascularity is normal. There is no free air. The bowel gas pattern is normal. Postoperative findings at the lumbosacral junction are noted. Pelvic calcifications reflect phleboliths. IMPRESSION: 1. No free air or evidence of bowel obstruction. 2. No acute cardiopulmonary findings. Electronically signed by: Calvin Ivory M.D. 09/14/2017 10:07 AM Dictated Date/Time: 09/14/2017 10:06 AM Assessment & Plan 32-year-old female - History of Subdural Hematoma, Elevated LFTs, Abdominal Ultrasound Suspicious for Acute Cholecystitis- 1cm impacted stone at gallbladder neck. GI consult reviewed. Patient NPO. Pain controlled at this time. Nausea and vomiting have subsided. Patient discussed with Dr. Rodriguez- recommend MRCP- GI ordered MRCP and will hopefully be completed this evening. Patient has been added to OR schedule for tomorrow for ERCP with Dr. Castro at 11:30. Recommend Laparoscopic Cholecystectomy- Dr. Rodriguez will coordinate with OR.
--- NOTE | 2017-09-14 18:19 | CONSULTATION REPORT ---
DATE OF CONSULTATION: 09/14/2017 FOR: Dr. Laisha Harrington. HISTORY OF PRESENT ILLNESS: Svetlana is 32 years old, apparently has no assigned local physician but does see Dr. Aquino at the [employer], [facility] [place] for depression and anxiety. She has been on multiple medications over the years including Wellbutrin, I believe Celexa and I believe some benzodiazepines. She was seen in our Emergency Room back on September 05 with confusion, memory loss and headache. She was found to have a small subdural hematoma and was transferred to [facility] for further management and was there for several days. Upon review of the situation, there was a clinical suspicion that she might have had an unwitnessed seizure with a resultant head trauma, although this was purely conjunctiural the EEG showed some slowing over the left frontal area, but no epileptic activity and multiple medications of her's were stopped including Wellbutrin due to its potential lowering of the seizure threshold and Celexa because of its possible antiplatelet effects, in light of the subdural. She was placed on Keppra 500 mg twice a day and gabapentin, which she had been on previously as well. She reported feeling very poorly, attributed to the Keppra and perhaps the absence of her other medications and was feeling more depressed and presented now with some nausea, vomiting, and malaise. Susan Love contacted me about how best to manage this and specifically about whether she could go back on her old antidepressant regimen which she insists made her feel better and in light of the fact that she was refusing to take any more anticonvulsants. I have had a chance to review some of the records. Imaging studies were limited to CAT scans which showed stability of the subdural. We have not repeated it here. An EEG report was reviewed. I could not find the actual neurologic consultations. We did review the discharge summary and medications. All of this occurs in the setting of a longstanding mood disorder; a pituitary tumor, which has been chronic, but I am not sure where is being followed; a right tibial fracture and she has had sinus surgery, back surgery, tubal ligation, had a history of a tonsillectomy. FAMILY HISTORY: Positive for alcoholism in her father and mother. SOCIAL HISTORY: Reveals her to be a current smoker, not a consumer of ethanol, but she is a former cocaine and methamphetamine user. IMMUNIZATIONS: Of unknown status but her tetanus is apparently intact, pneumococcus was given and she has had hepatitis B vaccine. No history of MRSA, or other drug-resistant organisms. ALLERGIES: SHE HAS ALLERGIES TO ASPIRIN, IBUPROFEN, RANITIDINE, SULFA AND CLINDAMYCIN. CURRENT MEDICATIONS: Include bromocriptine for control of what I presume is prolactinoma, although I am not sure who is prescribing it or who is following it along; B12 1000 mg daily, gabapentin theoretically 300 mg 3 times a day and Keppra 500 twice a day which she refuses to take. The previous psychiatric medications include Wellbutrin 300 mg a day and apparently Celexa and the dose I do not know REVIEW OF SYSTEMS: GENERAL: Reveals malaise, the nausea and vomiting and the headache, otherwise no other issues referable to head, eyes, ears, nose and throat. She has had no cardiovascular or pulmonary problems. GASTROINTESTINAL ISSUES: Reveals the malaise, nausea and vomiting without any particular pain or fever. GENITOURINARY SYSTEM: Free of complaints. MUSCULOSKELETAL ISSUES: Revealed the old leg fracture. NEUROLOGICALLY: She has had depression, but she vehemently denies any history of seizures. Denies ever having had one, but does admit that she had some amnesia and confusion occurring in the setting of the detection of the subdural. In retrospect, she does admit to having had an upper respiratory tract infection and may have had some excessive coughing for several weeks prior to the onset of her confusional episode. She really denies any head trauma. PHYSICAL EXAMINATION: VITAL SIGNS: On admission, revealed her blood pressure 105/61, pulse of 79, respirations were 18. GENERAL: She was alert, in no particular distress, complaining of a headache. HEENT: Examination was unremarkable. NECK: Supple. No bruits were heard. LUNGS: Clear. HEART: Had a regular rate and rhythm. ABDOMEN: Soft, nontender with the exception of some mild lower abdominal tenderness bilaterally. EXTREMITIES: Free of edema. Had good pulses. NEUROLOGICAL: She is awake, alert, oriented, had normal visual rios, normal gross visual acuity, poorly seen ocular fundi, normal facial motility and strength. Normal facial sensation, clear speech. No drift or pronation, tremor, tics or choreiform activity was seen. Reflex present, but a little hypoactive. Toes were downgoing. No Dari signs were seen. Muscle strength testing is normal and sensation is grossly intact to vibration, light touch and temperature. IMPRESSION AND PLAN: Susan Winters and I have discussed the case. At this point, I would have psychiatry reassess her, probably reinstitute many of her medications as some of the symptoms she described may have been due to a serotonin reuptake inhibitor withdrawal and increased levels of anxiety. I would stop the Keppra, get another EEG and I really am not strongly support treating her empirically for seizures when none have actually been documented and the history is based purely on the presence of a subdural and this causation could have been excessive as coughing or other mild trauma rather than an unwitnessed seizure.could easily have been responsible I think her amnesia was probably a manifestation of the subdurals effect rather than a manifestation of seizure activity. iWe will see what psychiatry has to say. Obviously, if we have an abnormal EEG then I will have to reverse my thinking and recommend an anticonvulsant, but it is not clear to me whether the Keppra is causing some of her agitation or the withdrawal from her medications that we are managing her depressive symptoms for years. Certainly, Keppra can cause the psychosis, change in personality so if anything in terms of anticonvulsants, I would recommend an agent such as Depakote or Lamictal. Depakote could be initiated fairly quickly at a reasonable dose where Lamictal will have to be raised. Depakote has some hepatocellular issues which are of concern in review of her elevated transaminases, but it appears that she does have an acute cholecystitis and this may explain the liver dysfunction, the nausea and vomiting as well. So, GI is going to have to get involved and already on board as far as I can tell. From a neurologic point of view, I will await to see what psychiatry has to say and I will look for the EEG and I will try to review a little more history as information becomes available in her case. I would at some point get another CT scan of the head to make sure the subdural is stable. She adamantly refuses to have an MRI of her brain unless she is sedated and perhaps we can go ahead with simple CT followup, which was adequate at the [facility] service in [place]. SEEMA
[2017-09-14] MEDS ORDERED: LEVETIRACETAM 250 MG TAB PO SCH (21:00)
--- NOTE | 2017-09-14 22:07 | DIAGNOSTIC IMAGING REPORT ---
MRCP CLINICAL HISTORY: 32 years-old Female presenting with r/o choledocholithiasis. TECHNIQUE: Multisequence, multiplanar MR imaging of the abdomen was performed without the use of intravenous contrast. IV contrast: None. COMPARISON: Ultrasound performed earlier the same day. FINDINGS: Localizer images: Unremarkable. Lung bases: Minimal dependent changes likely atelectasis. Normal heart size. Trace left pleural effusion. No pericardial effusion. Liver: Normal morphology. Normal hepatic fat fraction (less than 5%). Biliary: Conventional intrahepatic biliary bifurcation. Mild intrahepatic and extra hepatic biliary ductal dilatation. The common duct measures 8 mm in the midportion with smooth tapering to the ampulla of Vater. No convincing evidence of a filling defect in the common duct to suggest choledocholithiasis. The gallbladder is distended and thick-walled. Mild pericholecystic inflammatory change. A gallstone is noted at the gallbladder neck. Conventional insertion of the cystic duct into the hepatic duct. Pancreas: Normal noncontrast appearance. Spleen: Normal noncontrast appearance. Adrenal glands: Normal noncontrast appearance. Kidneys and ureters: Normal noncontrast appearance. No hydronephrosis. Normal ureters. Bowel: Normal. No bowel obstruction. Peritoneal cavity: No free fluid or intraperitoneal gas. Lymph nodes: No gross lymphadenopathy allowing for noncontrast technique. Vasculature: Normal noncontrast appearance. Abdominal wall: Normal. Musculoskeletal: Benign hemangioma suggested in the T10 vertebral body. Nonspecific subcutaneous edema in the lumbar region. IMPRESSION: 1. Findings remain suspicious for acute cholecystitis. No evidence of choledocholithiasis. Surgical consultation recommended. The report will be called/faxed according to standard departmental protocol. Electronically signed by: Adolfo Dotson M.D. 09/14/2017 10:06 PM Dictated Date/Time: 09/14/2017 10:00 PM
[2017-09-14 23:26] VITALS: BP 102/66; PULSE 96; TEMP 36.7; O2SAT 95
[2017-09-14] MEDS: PIPERACILL/TAZOBAC IV 3.375 GM in DEXTROSE 5% 100ML IV SCH (23:41)
[2017-09-15] VITALS (8 sets, daily range): BP systolic 96–138; BP diastolic 63–92; PULSE 62–92; TEMP 36.4–36.8; O2SAT 91–98
[2017-09-15] MEDS: MoRPHine SULFATE 4 MG/ML 1 ML CARP\\VIAL IV PRN ×2 (00:13→03:57)
[2017-09-15 06:02] LABS: HEPATITIS A IGM TC 51813E NON-REACTIVE (NON-REACTIVE); HEPATITIS B CORE IGM TC51854R NON-REACTIVE (NON-REACTIVE)
[2017-09-15 08:17] LABS: HEMATOCRIT 41.6 % (37-47); HEMOGLOBIN 13.5 g/dL (12.0-16.0); MEAN CELL VOLUME 91.8 fL (80-100); MEAN CORPUSCULAR HEMOGLOBIN 29.8 pg (25-34); MEAN CORPUSCULAR HGB CONC 32.5 g/dl (32-36); MEAN PLATELET VOLUME 10.9 fL (7.4-10.4); PLATELET COUNT 229 K/uL (130-400); RED CELL DISTRIBUTION WIDTH CV 14.4 % (11.5-14.5); RED CELL DISTRIBUTION WIDTH SD 48.7 fL (36.4-46.3); WHITE BLOOD COUNT 7.57 K/uL (4.8-10.8)
[2017-09-15] MEDS: PIPERACILL/TAZOBAC IV 3.375 GM in DEXTROSE 5% 100ML IV SCH ×2 (08:20→17:37)
[2017-09-15] MEDS: MEPERIDINE HCL 25 MG/ML CARP IV PRN ×5 (08:29→21:54)
[2017-09-15 08:50] LABS: ALBUMIN 2.8 gm/dl (3.4-5.0); CALCIUM 8.6 mg/dl (8.5-10.1); CREATININE 0.81 mg/dl (0.60-1.20); POTASSIUM 3.9 mmol/L (3.5-5.1)
[2017-09-15 08:53] LABS: TOTAL PROTEIN 6.3 gm/dl (6.4-8.2)
[2017-09-15] MEDS: CYANOCOBALAMIN 500 MCG TAB (VIT B-12) PO SCH (09:00)
[2017-09-15] MEDS: GABAPENTIN 300 MG CAP PO SCH ×3 (09:00→21:49)
[2017-09-15] MEDS: BROMOCRIPTINE MESYLATE 2.5 MG TAB PO SCH (09:00)
--- NOTE | 2017-09-15 09:46 | Clinical Documentation Query ---
Dr. SONI,WENDY : CLINICAL DOCUMENTATION QUERY Patient is a 32 year old female admitted for evaluation and treatment of "transaminitis". RUQ US demonstrated an impacted 1 mm stone in the gallbladder neck. MRCP suspicious for acute cholecystitis. Surgical consultation undertaken. In your clinical opinion is this patient being managed for: ( x ) Calculus of gallbladder with cholecystitis, with acute hepatitis ( ) Not Agree ( ) Other explanation of clinical findings (Please Explain) ( ) Unable to determine (Please Define) ( ) Need to Discuss The medical record reflects the following clinical findings, treatment, and risk factors. Clinical Indicators: As above Treatment: As above Risk Factors: Impacted stone in gallbladder neck Please clarify and document your clinical opinion in the progress notes and discharge summary. Terms such as "probable", "suspected", "likely", "questionable", "possible", or "still to be ruled out" are acceptable. IF IN AGREEMENT, YOU MUST DOCUMENT ABOVE DIAGNOSTIC STATEMENT IN DAILY PROGRESS NOTES AND DISCHARGE SUMMARY. This document is not part of the patient's record. Thank You, Willie Jordan, RN [phone]
--- NOTE | 2017-09-15 09:58 | NUR ---
PSYCHIATRIC LIAISON NURSE: Spoke with [facility] to confirm she has appointment with Dr. Aquino on October 04 at 1130. Will put this appointment on discharge instructions
[2017-09-15] MEDS ORDERED: ONDANSETRON INJ 2 MG/ML 2 ML VIAL IV PRN (10:15)
[2017-09-15] MEDS ORDERED: LABETALOL HCL IV 5 MG/ML 20ML IV PRN (10:15)
[2017-09-15] MEDS ORDERED: EpHEDrine SULFATE INJ 50 MG/ML AMP IV PRN (10:15)
[2017-09-15] MEDS ORDERED: ATROPINE SULFATE 0.1 MG/ML 5ML SYR IV PRN (10:15)
[2017-09-15] MEDS ORDERED: MEPERIDINE HCL 25 MG/ML CARP IV PRN (10:15)
[2017-09-15] MEDS ORDERED: HYDROmorphone INJ 1 MG/ML SYR IV PRN (10:15)
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
--- NOTE | 2017-09-15 12:21 | Gastroenterology Progress Note ---
Progress Note Date of Service: Sep 15, 2017 Subjective Pt evaluation today including: conversation w/ patient, physical exam, chart review, lab review, review of inpatient medication list MRCP from last night w/o choledocholithiasis, LFTs decreasing. She feels abd pain is improved. Planned for lap chinyere by Dr. Rodriguez today. Review of Systems Constitutional: No fever, No chills Respiratory: No cough, No shortness of breath Cardiac: No chest pain Abdomen: + pain (improved), No nausea, No vomiting Skin: No rash, No itch, No jaundice Medications Current Inpatient Medications Medications (Trade) Dose Ordered Sig/Jesse Route Start Time Stop Time Status Last Admin Dose Admin Ondansetron HCl (Zofran Inj) 4 mg Q6H PRN IV 09/14/17 09:00 10/14/17 08:59 09/15/17 08:28 4 MG Dextrose/Sodium Chloride 1,000 ml @ 80 mls/hr [id number] IV 09/14/17 12:00 10/14/17 11:59 09/14/17 23:41 80 MLS/HR Bromocriptine Mesylate (Parlodel Tab) 2.5 mg DAILY PO 09/15/17 09:00 10/15/17 08:59 Gabapentin (Neurontin Cap) 300 mg TID PO 09/14/17 14:00 10/14/17 13:59 09/14/17 17:14 300 MG Cyanocobalamin (Vitamin B-12 Tab) 1,000 mcg DAILY PO 09/15/17 09:00 10/15/17 08:59 Bupropion HCl (Wellbutrin Tab) 75 mg BID PO 09/14/17 21:00 10/14/17 20:59 Piperacillin Sod/ Tazobactam Sod (Consult) 1 ea UD PRN N/A 09/14/17 16:00 10/14/17 15:59 Piperacillin Sod/ Tazobactam Sod 3.375 gm/Dextrose 115 ml @ 28.75 mls/ hr Q8H IV 09/15/17 00:00 09/24/17 15:59 09/15/17 08:20 28.75 MLS/HR Lorazepam 1 mg/ Syringe 1 ml @ 0.5 mls/min ONE PRN IV 09/14/17 16:15 09/15/17 16:14 09/14/17 20:54 0.5 MLS/MIN Meperidine HCl (Demerol Inj) 25 mg Q2H PRN IV 09/15/17 08:15 09/29/17 08:14 09/15/17 08:29 25 MG Fentanyl Citrate (Fentanyl Inj) 50 mcg Q5M PRN IV 09/15/17 10:15 09/15/17 15:15 Hydromorphone HCl (Dilaudid Inj) 0.5 mg Q5M PRN IV 09/15/17 10:15 09/15/17 15:15 Meperidine HCl (Demerol Inj) 25 mg Q5M PRN IV 09/15/17 10:15 09/15/17 15:15 Ondansetron HCl (Zofran Inj) 4 mg ONE PRN IV 09/15/17 10:15 09/15/17 15:15 Labetalol HCl (Normodyne IV) 5 mg Q5M PRN IV 09/15/17 10:15 09/15/17 15:15 Ephedrine Sulfate (EpHEDrine SULFATE INJ) 5 mg Q5M PRN IV 09/15/17 10:15 09/15/17 15:15 Atropine Sulfate (Atropine Sulfate 0.1mg/ml Inj) 0.5 mg Q1M PRN IV 09/15/17 10:15 09/15/17 15:15 Objective Vital Signs Date Time Temp Pulse Resp B/P (MAP) Pulse Ox O2 Delivery O2 Flow Rate FiO2 09/15/17 08:52 18 Room Air 09/15/17 08:00 Room Air 09/15/17 07:49 36.4 92 18 107/73 (84) 98 Room Air 09/15/17 00:00 Room Air 09/14/17 23:26 36.7 96 18 102/66 (78) 95 Room Air 09/14/17 16:20 Room Air 09/14/17 15:21 36.5 94 18 100/70 (80) 100 Room Air Physical Exam General Appearance: WD/WN, no apparent distress Eyes: normal inspection, PERRL, EOMI Neck: supple, no JVD, trachea midline Respiratory/Chest: normal breath sounds, no respiratory distress, no accessory muscle use Cardiovascular: regular rate, rhythm, no gallop, no murmur Abdomen: normal bowel sounds, non tender, soft Extremities: normal inspection, no pedal edema, no calf tenderness Neurologic/Psych: alert, normal mood/affect, oriented x 3 Skin: normal color, no jaundice, no rash Laboratory Results Last 24 Hours Test 09/15/17 08:02 White Blood Count 7.57 K/uL Red Blood Count 4.53 M/uL Hemoglobin 13.5 g/dL Hematocrit 41.6 % Mean Corpuscular Volume 91.8 fL Mean Corpuscular Hemoglobin 29.8 pg Mean Corpuscular Hemoglobin Concent 32.5 g/dl RDW Standard Deviation 48.7 fL RDW Coefficient of Variation 14.4 % Platelet Count 229 K/uL Mean Platelet Volume 10.9 fL Sodium Level 145 mmol/L Potassium Level 3.9 mmol/L Chloride Level 110 mmol/L Carbon Dioxide Level 29 mmol/L Anion Gap 5.0 mmol/L Blood Urea Nitrogen 4 mg/dl Creatinine 0.81 mg/dl Est Creatinine Clear Calc Drug Dose 118.3 ml/min Estimated GFR () 112.2 Estimated GFR (Non- 96.8 BUN/Creatinine Ratio 4.6 Random Glucose 90 mg/dl Calcium Level 8.6 mg/dl Total Bilirubin 1.9 mg/dl Aspartate Amino Transf (AST/SGOT) 209 U/L Alanine Aminotransferase (ALT/SGPT) 260 U/L Alkaline Phosphatase 94 U/L Total Protein 6.3 gm/dl Albumin 2.8 gm/dl Globulin 3.5 gm/dl Albumin/Globulin Ratio 0.8 Assessment and Plan Patient is a 32 year old female seen for elevated LFTs, new from baseline. Liver u/s showed thickened gallbladder with impacted stone in gallbladder neck, CBD 8mm. MRCP w/o signs of choledocholithiasis. LFTs trending down. Plans - F/U labs/serologies to r/o acute/viral hepatitis, AIH, hereditary liver diseases. There were ordered before liver u/s resulted. - NPO for lap cholecystectomy by Dr. Rodriguez today. I discussed MRCP and LFTs findings with Dr. Rodriguez. Plan for IOC, if positive, we will proceed w ERCP for choledocholithiasis removal. If negative, no need for ERCP. ATTESTATION: I have performed a history and physical examination of this patient and reviewed the electronic record. Specifically, I discussed ERCP with the patient and obtained informed consent in the event that her OR cholangiogram is positive. OR cholangiogram does not show a filling defect, but there is mild dilation and the absence of free flow into the duodenum. I have discussed the case with BHUMI Ward. The above note reflects my findings, conclusions , and recommendations. Tutu Castro MD
[2017-09-15] MEDS: CONRAY 30% 150ML BOTTLE ONE ×2 (12:23→14:22)
--- NOTE | 2017-09-15 12:26 | Surgery Progress Note ---
Surgery Progress Note Date of Service Sep 15, 2017. Subjective continues to have pain and nausea Objective Vital Signs: Date Time Temp Pulse Resp B/P (MAP) Pulse Ox O2 Delivery O2 Flow Rate FiO2 09/15/17 08:52 18 Room Air 09/15/17 08:00 Room Air 09/15/17 07:49 36.4 92 18 107/73 (84) 98 Room Air 09/15/17 00:00 Room Air 09/14/17 23:26 36.7 96 18 102/66 (78) 95 Room Air 09/14/17 16:20 Room Air 09/14/17 15:21 36.5 94 18 100/70 (80) 100 Room Air Abdomen: soft, + tenderness (minimal) Laboratory Results: Results Past 24 Hours Test 09/15/17 08:02 Range/Units White Blood Count 7.57 4.8-10.8 K/uL Red Blood Count 4.53 4.2-5.4 M/uL Hemoglobin 13.5 12.0-16.0 g/dL Hematocrit 41.6 37-47 % Mean Corpuscular Volume 91.8 80-100 fL Mean Corpuscular Hemoglobin 29.8 25-34 pg Mean Corpuscular Hemoglobin Concent 32.5 32-36 g/dl RDW Standard Deviation 48.7 36.4-46.3 fL RDW Coefficient of Variation 14.4 11.5-14.5 % Platelet Count 229 130-400 K/uL Mean Platelet Volume 10.9 7.4-10.4 fL Sodium Level 145 136-145 mmol/L Potassium Level 3.9 3.5-5.1 mmol/L Chloride Level 110 98-107 mmol/L Carbon Dioxide Level 29 21-32 mmol/L Anion Gap 5.0 3-11 mmol/L Blood Urea Nitrogen 4 7-18 mg/dl Creatinine 0.81 0.60-1.20 mg/dl Est Creatinine Clear Calc Drug Dose 118.3 ml/min Estimated GFR () 112.2 Estimated GFR (Non- 96.8 BUN/Creatinine Ratio 4.6 10-20 Random Glucose 90 70-99 mg/dl Calcium Level 8.6 8.5-10.1 mg/dl Total Bilirubin 1.9 0.2-1 mg/dl Aspartate Amino Transf (AST/SGOT) 209 15-37 U/L Alanine Aminotransferase (ALT/SGPT) 260 12-78 U/L Alkaline Phosphatase 94 45-117 U/L Total Protein 6.3 6.4-8.2 gm/dl Albumin 2.8 3.4-5.0 gm/dl Globulin 3.5 2.5-4.0 gm/dl Albumin/Globulin Ratio 0.8 0.9-2 Assessment & Plan cholelithiasis, acute cholecystitis MRCP negative for choledocholithiasis, LFT's improved will plan for lap chinyere with cholangiogram today
[2017-09-15] MEDS ORDERED: CONRAY 60% 50 ML VIAL ONE (12:27)
--- NOTE | 2017-09-15 12:27 | History & Physical Bridge Note ---
H&P Re-Evaluation Bridge Note: I have examined the patient, reviewed the History & Physical and in the interval since the performance of the History & Physical I have noted the following changes of clinical significance: No changes noted. discussed risks/ options. bleeding/infection/dvt/pe/mi/injury to organs such as bile ducts/bowel , bile leaks, etc..questions answered. ok to proceed.
[2017-09-15] MEDS ORDERED: BUPIVACAINE/EPINEPHRINE 0.5% MPF 1:200,000 30 ML VIAL ONE ×2 (12:28→12:36)
[2017-09-15] MEDS ORDERED: BUPIVACAINE 0.5 % 5 MG/1 ML MPF 30ML VIAL ONE (12:32)
[2017-09-15] MEDS ORDERED: FENTANYL CITRATE INJ 50 MCG/1 ML 2 ML VIAL ONE (12:32)
[2017-09-15] MEDS ORDERED: MIDAZOLAM HCL 1 MG/ML 2ML VIAL ONE (12:32)
[2017-09-15] MEDS ORDERED: ROCURONIUM BROMIDE 10 MG/ML 5 ML VIAL IV ONE (12:33)
[2017-09-15] MEDS ORDERED: GLYCOPYRROLATE INJ 0.2 MG/ML VIAL ONE (12:33)
[2017-09-15] MEDS ORDERED: PROPOFOL IV EMULSION 10 MG/ML 20 ML VIAL IV ONE (12:33)
[2017-09-15] MEDS ORDERED: EpINEphrine INJ 1MG/ML AMP 1 MG/ML AMP ONE (12:33)
[2017-09-15] MEDS ORDERED: LIDOCAINE HCL 2% 2 ML VIAL (20MG/ML) ONE (12:33)
[2017-09-15] MEDS ORDERED: NEOSTIGMINE METHYLSULFATE 5 MG/5 ML SYR ONE (12:33)
[2017-09-15] MEDS ORDERED: ONDANSETRON INJ 2 MG/ML 2 ML VIAL ONE (12:33)
--- NOTE | 2017-09-15 14:17 | DIAGNOSTIC IMAGING REPORT ---
INTRAOPERATIVE CHOLANGIOGRAM HISTORY: Post cholecystectomy. FLUOROSCOPY TIME: 21 seconds. 12 fluoroscopic spot images of the right upper quadrant. FINDINGS: Fluoroscopy was provided for an intraoperative cholangiogram status post cholecystectomy. Contrast was injected through the cystic duct remnant. Only a trickle of contrast extends into the bowel. There is mild to moderate intra and and hepatic bile duct dilatation. IMPRESSION: Fluoroscopy provided for an intraoperative cholangiogram status post cholecystectomy. Mild to moderate intra and extrahepatic bile duct dilatation to the level of the ampulla. Only a trickle of contrast extends into the small bowel. Therefore, this could be due to stricture/spasm of the ampulla versus an obstructing stone. However, there is no definite filling defect identified within the distended common bile duct to suggest a stone. Electronically signed by: Roly Montaño M.D. 09/15/2017 2:15 PM Dictated Date/Time: 09/15/2017 2:12 PM
--- NOTE | 2017-09-15 14:20 | [facility] Operative Report ---
Operative Report Operative Date Sep 15, 2017. Pre-Operative Diagnosis Chronic calculus cholecystitis Post-Operative Diagnosis same as pre-operative Procedure(s) Performed Laparoscopic Cholecystectomy with Intra-Operative Cholangiogram Surgeon Dr. Bossman Rodriguez Innersole Fitter Surgeon(s) DANIELA May Estimated Blood Loss 100ML Findings acute calculous cholecystitis; non filling of duodenum Specimens Permanent Specimen A) Gallbladder and Contents Drains cassidy into RUQ Anesthesia get Complication(s) None Disposition Recovery Room / PACU Description of Procedure After informed consent was obtained the patient was taken to the operating room and placed in supine position. After successful intubation the abdomen was sterilely prepped and draped in usual fashion. A Supra umbilical incision through her old scar line was made with an 11 blade scalpel and carried down through the soft tissue using electrocautery. The anterior rectus fascia was opened using electrocautery and 2 #0 Vicryl stay sutures were placed. Peritoneum was entered using blunt finger penetration and a finger sweep was performed to take down any adhesions. A 12 mm Ernandez trocar was placed and the abdomen was insufflated 18 mmHg. Laparoscope was inserted and the abdomen was examined 360. A subxiphoid 5 mm port which would later be converted to a 12 mm port was placed. 2 right upper quadrant 5 mm ports were placed. The gallbladder was acutely inflamed. Simply grabbing the gallbladder caused us to put a hole in it releasing dark sludge type of bile. We were able to grab this hole and continue to elevate it superiorly and laterally. We also made a hole in the neck of the gallbladder because of the inflammation. We were able to take down adhesions of the neck using primarily blunt dissection. Eventually we were able to skeletonize what was a dilated cystic duct. We used a Sevilla clamp to come across it and advanced the Sevilla needle into the lumen of the cystic duct. We performed an intraoperative cholangiogram with Omnipaque contrast. The cystic and common bile ducts were dilated. There right left radicals were also dilated. The contrast abruptly stopped near the ampulla. There was no filling defect. Dr. Castro did come into the room to evaluate the cholangiogram as well. He felt possibly it was spasm of the sphincter of Oddi rather than a filling defect. Once the cholangiogram was completed because of the size of the cystic duct I opted to use a LOLIS Brown cartridge stapler to transect the cystic duct. We then skeletonized clipped and divided cystic artery. The gallbladder was removed from the gallbladder fossa and placed into an Endo Catch bag. Bleeding points in the gallbladder fossa were controlled using electrocautery. Thorough irrigation was performed. We did look into the pelvis and there was no bile or fluid in the pelvis. We then placed a 10 flat Raymond-Iraheta drain in the right upper quadrant and brought it out through one of the trocar sites. A final look around the abdomen showed no other abnormality. At the end of the procedure there was adequate hemostasis and no evidence of a bile leak. We then removed the gallbladder as well as all the trochars and desufflated the abdomen. The fascia of the camera port was closed using 0 Vicryl [id number] fashion. All the wounds were irrigated and closed using 4-0 Monocryl. Marcaine was injected around for postoperative analgesia and skin glue used as a dressing. The patient was awakened extubated and transferred recovery in stable condition My physician's student assistant was present throughout the entire case. He helped with trocar placement as well as prepping the patient at the beginning of the case. He assisted in retraction of the gallbladder. He also helped with wound closure and dressing placement at the end of the procedure I attest to the content of the Intraoperative Record and any orders documented therein. Any exceptions are noted below.
--- NOTE | 2017-09-15 14:26 | ELECTROENCEPHALOGRAPH REPORT ---
CLINICAL DIAGNOSIS: Subdural hematoma, question seizures. ELECTROENCEPHALOGRAM DIAGNOSIS: Essentially normal during wakefulness. DESCRIPTION OF TRACING: This EEG was done as a bedside recording and is of excellent technical quality with simultaneous video analysis of patient's movement and behavior being recorded and photic stimulation being performed as the only stimulus parameter. Drowsiness and light sleep were not obtained. Under these conditions, there is evidence for low amplitude, but normal background rhythm in the alpha range of up to 10-11 Hz of maximum frequency and of up to 15-20 microvolts of maximum amplitude. This is maximum posterior head regions bilaterally symmetrical. Polymorphic mid to upper frequency relatively low voltage theta activity is seen over all head regions without clear focal or regional predominance. Anterior head region maximum bilaterally symmetrical low voltage fast activity in the beta range is present. Photic stimulation provoked some minimal driving response without a photomyogenic or photoparoxysmal component. At no time during the waking tracing is there evidence for potentially epileptogenic activity in the form of polyspike or spike wave bursts, focal sharp waves or focal spikes. INTERPRETATION: This EEG is essentially normal during wakefulness without evidence for focal or generalized encephalopathy and without evidence for potentially epileptogenic activity. MTDD
[2017-09-15] MEDS: LACTATED RINGER'S 1000ML 1,000 ML IV SCH (14:30)
[2017-09-15] MEDS: FENTANYL CITRATE INJ 50 MCG/1 ML 2 ML VIAL IV PRN ×4 (14:35→14:50)
--- NOTE | 2017-09-15 14:50 | Anesthesiology Progress Note ---
Anesthesia Post Op Note Date & Time Sep 15, 2017 at 14:50 Vital Signs Pain Intensity: 10 Vital Signs Past 12 Hours Date Time Temp Pulse Resp B/P (MAP) Pulse Ox O2 Delivery O2 Flow Rate FiO2 09/15/17 14:26 36.9 63 14 125/90 95 Oxymask 7 09/15/17 08:52 18 Room Air 09/15/17 08:00 Room Air 09/15/17 07:49 36.4 92 18 107/73 (84) 98 Room Air Notes Mental Status: alert / awake / arousable, participated in evaluation Pt Amnestic to Procedure: Yes Nausea / Vomiting: adequately controlled Pain: adequately controlled Airway Patency, RR, SpO2: stable & adequate BP & HR: stable & adequate Hydration State: stable & adequate Anesthetic Complications: no major complications apparent
--- NOTE | 2017-09-15 15:37 | PROGRESS NOTE ---
DATE: 09/15/2017 SUBJECTIVE: Svetlana unfortunately is in the operating room, probably having her gallstone and gallbladder removed. I am not sure of the details, but at any rate, we cannot follow up on her neurologically until tomorrow. EEG was absolutely normal and at this point, I see no reason to keep her on Keppra. I am not sure if she ever had a seizure. She certainly had a small subdural and some of her memory loss and headaches were undoubtedly related to that. I am not sure of the cause of the subdural. She did have an illness with some vigorous coughing and at times, this is sufficient to produce a small rupture in a cortical vein and produce a subdural. I do not think we need to postulate a seizure with head injury like apparently was the theory in [place]. Right now, my recommendation would be to go back on her psychiatric medications, perhaps a little ent consultant on the Wellbutrin than she was previously, but will let this up to Psychiatry. As noted in my notation of yesterday, I wonder if some of her irritability and lability was not due to sudden withdrawal of longstanding antidepressants in the serotonin reuptake group. I will check back with her tomorrow, but for now, I see no reason to keep her on Keppra. She is already on Neurontin theoretically for some mood stabilization, and this may service as an adequate anticonvulsant in any unlikely event that she would need it. SEEMA
--- NOTE | 2017-09-15 19:15 | Progress Note ---
Medicine Progress Note Date & Time of Visit: Sep 15, 2017 at 19:08. Subjective Patient seen earlier in the day prior to surgery; denied any complaints other than some generalized pain and mild nausea. No overnight events noted. Patient has been NPO and is anxiously awaiting to eat. Headache has improved. Objective Last 8 Hrs Date Time Temp Pulse Resp B/P (MAP) Pulse Ox O2 Delivery O2 Flow Rate FiO2 09/15/17 17:30 36.5 77 18 138/81 (100) 95 Nasal Cannula 3.0 09/15/17 16:30 36.4 62 18 125/80 (95) 94 Nasal Cannula 3.0 09/15/17 16:09 Nasal Cannula 2.0 09/15/17 16:00 36.8 78 16 138/92 (107) 94 Nasal Cannula 3.0 09/15/17 15:30 36.6 83 16 121/76 (91) 91 Nasal Cannula 3.0 09/15/17 15:15 36.8 76 18 125/80 (95) 91 Nasal Cannula 3.0 09/15/17 15:01 80 15 124/93 95 09/15/17 15:01 36.5 81 15 09/15/17 14:56 70 13 09/15/17 14:56 70 13 94 09/15/17 14:55 137/86 09/15/17 14:51 63 12 100 09/15/17 14:51 63 12 09/15/17 14:50 109/45 09/15/17 14:46 61 17 09/15/17 14:46 60 17 100 09/15/17 14:45 122/70 09/15/17 14:41 61 18 09/15/17 14:41 61 18 100 09/15/17 14:40 127/75 09/15/17 14:36 62 16 09/15/17 14:36 63 16 128/80 99 09/15/17 14:33 129/80 09/15/17 14:26 36.9 63 14 125/90 95 Oxymask 7 Physical Exam: GENERAL: Patient is in no acute distress. HEENT: No acute trauma, normocephalic, mucous membranes moist, no nasal congestion, no scleral icterus conjunctivae clear. NECK: No stridor, trachea is midline. LUNGS: Clear to auscultation bilaterally, no wheeze, no rhonchi, breath sounds equal. HEART: Without murmurs gallops or rubs, regular rate and rhythm. ABDOMEN: Soft, nontender, bowel sounds positive, no hepatosplenomegaly EXTREMITIES: No cyanosis or edema, moving all 4 extremities without pain or difficulty; ROM intact NEUROLOGIC: Oriented x 3, no acute motor or sensory deficits, no focal weakness. SKIN: No rash, no jaundice, no diaphoresis. Laboratory Results: Last 24 Hours Test 09/15/17 08:02 White Blood Count 7.57 K/uL Red Blood Count 4.53 M/uL Hemoglobin 13.5 g/dL Hematocrit 41.6 % Mean Corpuscular Volume 91.8 fL Mean Corpuscular Hemoglobin 29.8 pg Mean Corpuscular Hemoglobin Concent 32.5 g/dl RDW Standard Deviation 48.7 fL RDW Coefficient of Variation 14.4 % Platelet Count 229 K/uL Mean Platelet Volume 10.9 fL Sodium Level 145 mmol/L Potassium Level 3.9 mmol/L Chloride Level 110 mmol/L Carbon Dioxide Level 29 mmol/L Anion Gap 5.0 mmol/L Blood Urea Nitrogen 4 mg/dl Creatinine 0.81 mg/dl Est Creatinine Clear Calc Drug Dose 118.3 ml/min Estimated GFR () 112.2 Estimated GFR (Non- 96.8 BUN/Creatinine Ratio 4.6 Random Glucose 90 mg/dl Calcium Level 8.6 mg/dl Total Bilirubin 1.9 mg/dl Aspartate Amino Transf (AST/SGOT) 209 U/L Alanine Aminotransferase (ALT/SGPT) 260 U/L Alkaline Phosphatase 94 U/L Total Protein 6.3 gm/dl Albumin 2.8 gm/dl Globulin 3.5 gm/dl Albumin/Globulin Ratio 0.8 Assessment & Plan TRANSAMINITIS: secondary to acute cholecystitis -patient presented with persistent nausea and vomiting -RUQ US shows acute cholecystitis -hepatitis panel, HIV testing -GI consulted, appreciate recs -MRCP negative for choledocholithiasis -Surgery consulted, planning to take patient for lap chinyere today RECENT SUBDURAL HEMATOMA: -recently transferred to [facility] and discharged on keppra -per records, it was thought that patient had an unwitnessed seizure leading to head trauma causing the subdural hence the keppra -patient has psychiatric history and Wellbutrin (due to precipitating seizures) and Celexa (due to antiplatelet properties) were discontinued -continued on gabapentin -patient requesting to discontinue Keppra, Neuro consulted and agree with this and also to repeat an EEG MOOD DISORDER: -Psych consulted, patient's previous meds restarted HX OF PITUITARY TUMOR: - continue bromocriptine Current Inpatient Medications: Current Inpatient Medications Medications (Trade) Dose Ordered Sig/Jesse Route Start Time Stop Time Status Last Admin Dose Admin Ondansetron HCl (Zofran Inj) 4 mg Q6H PRN IV 09/14/17 09:00 10/14/17 08:59 09/15/17 08:28 4 MG Bromocriptine Mesylate (Parlodel Tab) 2.5 mg DAILY PO 09/15/17 09:00 10/15/17 08:59 Gabapentin (Neurontin Cap) 300 mg TID PO 09/14/17 14:00 10/14/17 13:59 09/14/17 17:14 300 MG Cyanocobalamin (Vitamin B-12 Tab) 1,000 mcg DAILY PO 09/15/17 09:00 10/15/17 08:59 Bupropion HCl (Wellbutrin Tab) 75 mg BID PO 09/14/17 21:00 10/14/17 20:59 Piperacillin Sod/ Tazobactam Sod (Consult) 1 ea UD PRN N/A 09/14/17 16:00 10/14/17 15:59 Piperacillin Sod/ Tazobactam Sod 3.375 gm/Dextrose 115 ml @ 28.75 mls/ hr Q8H IV 09/15/17 00:00 09/24/17 15:59 09/15/17 17:37 28.75 MLS/HR Meperidine HCl (Demerol Inj) 25 mg Q2H PRN IV 09/15/17 08:15 09/29/17 08:14 09/15/17 17:37 25 MG Lactated Ringer's 1,000 ml @ 100 mls/hr Q10H IV 09/15/17 14:30 10/15/17 14:29 09/15/17 14:30 100 MLS/HR
--- NOTE | 2017-09-15 22:00 | NUR ---
ID: Patient admitted with Transaminitis. S/P lap cholecystectomy. Alert but drowsy. Complains of abdominal pain rated 9/10. Denies nausea. Tolerating clear liquid diet. Dressings intact to abdomen. IVETT drain with bloody drainage. Assist of one to the bathroom. Discharge plan uncertain at this time.
[2017-09-16] VITALS (7 sets, daily range): BP systolic 88–109; BP diastolic 58–74; PULSE 83–105; TEMP 36.7–37.1; O2SAT 90–92
[2017-09-16] MEDS: PIPERACILL/TAZOBAC IV 3.375 GM in DEXTROSE 5% 100ML IV SCH ×4 (00:07→23:48)
[2017-09-16] MEDS: LACTATED RINGER'S 1000ML 1,000 ML IV SCH ×3 (00:07→20:55)
[2017-09-16] MEDS: MEPERIDINE HCL 25 MG/ML CARP IV PRN ×6 (02:24→23:49)
[2017-09-16 07:26] LABS: BASO % 0.2 %; BASO ABS # 0.02 K/uL (0-0.2); EOS % 2.8 %; HEMATOCRIT 41.5 % (37-47); HEMOGLOBIN 13.5 g/dL (12.0-16.0); IG# 0.03 K/uL (0.00-0.02); LYMPH % 20.7 %; LYMPH ABS # 2.19 K/uL (1.2-3.4); MEAN CORPUSCULAR HEMOGLOBIN 29.9 pg (25-34); MEAN CORPUSCULAR HGB CONC 32.5 g/dl (32-36); MEAN PLATELET VOLUME 11.8 fL (7.4-10.4); MONO % 6.1 %; MONO ABS # 0.64 K/uL (0.11-0.59); NEUT % 69.9 %; NEUT ABS # 7.39 K/uL (1.4-6.5); PLATELET COUNT 230 K/uL (130-400); RED CELL DISTRIBUTION WIDTH CV 14.4 % (11.5-14.5); RED CELL DISTRIBUTION WIDTH SD 48.6 fL (36.4-46.3); WHITE BLOOD COUNT 10.57 K/uL (4.8-10.8)
[2017-09-16 07:56] LABS: ALBUMIN 2.5 gm/dl (3.4-5.0); CALCIUM 8.3 mg/dl (8.5-10.1); CREATININE 0.86 mg/dl (0.60-1.20); POTASSIUM 3.8 mmol/L (3.5-5.1)
[2017-09-16] MEDS: GABAPENTIN 300 MG CAP PO SCH ×3 (09:06→20:56)
[2017-09-16] MEDS: BROMOCRIPTINE MESYLATE 2.5 MG TAB PO SCH (09:06)
[2017-09-16] MEDS: CYANOCOBALAMIN 500 MCG TAB (VIT B-12) PO SCH (09:07)
[2017-09-16] MEDS: DOCUSATE SODIUM 100 MG CAP PO SCH ×2 (10:17→20:58)
[2017-09-16] MEDS: POLYETHYLENE (MIRALAX) 17 GM PACK PO SCH (10:17)
--- NOTE | 2017-09-16 11:38 | Surgery Progress Note ---
Surgery Progress Note Date of Service Sep 16, 2017. Subjective States pain in right upper quadrant is worse. Does not feel like she is getting better. Tolerating clear liquids. Objective Vital Signs: Date Time Temp Pulse Resp B/P (MAP) Pulse Ox O2 Delivery O2 Flow Rate FiO2 09/16/17 09:27 90 Room Air 09/16/17 07:33 36.7 83 20 109/74 (86) 90 09/16/17 03:13 89 20 96/67 (77) 92 Room Air 09/16/17 00:00 Room Air 09/15/17 23:22 36.6 85 18 96/63 (74) 93 09/15/17 20:00 Nasal Cannula 2.0 09/15/17 19:18 36.7 77 18 123/77 (92) 95 Nasal Cannula 3.0 09/15/17 17:30 36.5 77 18 138/81 (100) 95 Nasal Cannula 3.0 09/15/17 16:30 36.4 62 18 125/80 (95) 94 Nasal Cannula 3.0 09/15/17 16:09 Nasal Cannula 2.0 09/15/17 16:00 36.8 78 16 138/92 (107) 94 Nasal Cannula 3.0 09/15/17 15:30 36.6 83 16 121/76 (91) 91 Nasal Cannula 3.0 09/15/17 15:15 36.8 76 18 125/80 (95) 91 Nasal Cannula 3.0 09/15/17 15:01 80 15 124/93 95 09/15/17 15:01 36.5 81 15 09/15/17 14:56 70 13 09/15/17 14:56 70 13 94 09/15/17 14:55 137/86 09/15/17 14:51 63 12 100 09/15/17 14:51 63 12 09/15/17 14:50 109/45 09/15/17 14:46 61 17 09/15/17 14:46 60 17 100 09/15/17 14:45 122/70 09/15/17 14:41 61 18 09/15/17 14:41 61 18 100 09/15/17 14:40 127/75 09/15/17 14:36 62 16 09/15/17 14:36 63 16 128/80 99 09/15/17 14:33 129/80 09/15/17 14:26 36.9 63 14 125/90 95 Oxymask 7 Physical Exam: IVETT drainage (serosanguinous 155/20 cc) General Appearance: WD/WN, no apparent distress Respiratory/Chest: normal breath sounds, no respiratory distress Abdomen: normal bowel sounds, non distended, soft, + tenderness (generalized but worse in epigastrium and right upper quadrant) Incision(s): clean, dry, intact Laboratory Results: Results Past 24 Hours Test 09/16/17 06:49 Range/Units White Blood Count 10.57 4.8-10.8 K/uL Red Blood Count 4.51 4.2-5.4 M/uL Hemoglobin 13.5 12.0-16.0 g/dL Hematocrit 41.5 37-47 % Mean Corpuscular Volume 92.0 80-100 fL Mean Corpuscular Hemoglobin 29.9 25-34 pg Mean Corpuscular Hemoglobin Concent 32.5 32-36 g/dl Platelet Count 230 130-400 K/uL Mean Platelet Volume 11.8 7.4-10.4 fL Neutrophils (%) (Auto) 69.9 % Lymphocytes (%) (Auto) 20.7 % Monocytes (%) (Auto) 6.1 % Eosinophils (%) (Auto) 2.8 % Basophils (%) (Auto) 0.2 % Neutrophils # (Auto) 7.39 1.4-6.5 K/uL Lymphocytes # (Auto) 2.19 1.2-3.4 K/uL Monocytes # (Auto) 0.64 0.11-0.59 K/uL Eosinophils # (Auto) 0.30 0-0.5 K/uL Basophils # (Auto) 0.02 0-0.2 K/uL RDW Standard Deviation 48.6 36.4-46.3 fL RDW Coefficient of Variation 14.4 11.5-14.5 % Immature Granulocyte % (Auto) 0.3 % Immature Granulocyte # (Auto) 0.03 0.00-0.02 K/uL Sodium Level 140 136-145 mmol/L Potassium Level 3.8 3.5-5.1 mmol/L Chloride Level 107 98-107 mmol/L Carbon Dioxide Level 30 21-32 mmol/L Anion Gap 3.0 3-11 mmol/L Blood Urea Nitrogen 3 7-18 mg/dl Creatinine 0.86 0.60-1.20 mg/dl Est Creatinine Clear Calc Drug Dose 111.7 ml/min Estimated GFR () 104.3 Estimated GFR (Non- 90.0 BUN/Creatinine Ratio 2.9 10-20 Random Glucose 87 70-99 mg/dl Calcium Level 8.3 8.5-10.1 mg/dl Total Bilirubin 2.9 0.2-1 mg/dl Aspartate Amino Transf (AST/SGOT) 255 15-37 U/L Alanine Aminotransferase (ALT/SGPT) 287 12-78 U/L Alkaline Phosphatase 116 45-117 U/L Total Protein 6.0 6.4-8.2 gm/dl Albumin 2.5 3.4-5.0 gm/dl Globulin 3.5 2.5-4.0 gm/dl Albumin/Globulin Ratio 0.7 0.9-2 Assessment & Plan Persistent/ worsening transaminitis following lap chinyere with IOC showing none or minimal flow into duodenum. Pain worse today. Would recommend GI eval/ opinion regarding need for ercp. No evidence of bile leak (IVETT fluid is nonbilious). Continue to monitor liver function tests.
--- NOTE | 2017-09-16 12:36 | PROGRESS NOTE ---
DATE: 09/16/2017 I saw Svetlana today. She now has much less headache but is complaining of incisional pain following a cholecystectomy and seems to be fairly uncomfortable. Psychiatry has seen her, started back on bupropion at half doses compared to what she was on, and it looks like the Celexa is going to be slowly reinstituted and she is still on the Neurontin. Her benzodiazepines are going to be continued on an outpatient basis, and her followup I suspect would be back with Dr. Aquino at the [facility] service unit for fine tuning. EEG was normal as per my note yesterday and frankly again upon review of the history, I see nothing here that would go for a seizure, and suspect that she probably had a subdural induced by vigorous coughing or some trivial trauma that she did not recall. We are not going to restart anticonvulsants at this time and frankly I do not think they are going to be necessary in the future, unless of course her psychiatrist wants to try something like Lamictal or Depakote for mood stabilization depending on how she does. From a neurologic point of view, I think all she needs is a followup CT at some point during her current hospital stay and then another one in a month's time just to be sure that the blood is totally reabsorbed or is as close to being reabsorbed as possible at that point. This could be done on an outpatient basis, but it does not appear she has a primary care contacts, so I suspect neurology may have to see her about 4-6 weeks post-discharge after her last CT scan. I will check back with her tomorrow and try to schedule a CT before she is discharged following her cholecystectomy and we will arrange for followup CT on an outpatient basis at some point in the future. She is not going to need neurologic followup, otherwise at this time. SEEMA
--- NOTE | 2017-09-16 12:47 | Progress Note ---
Progress Note Date of Service Sep 16, 2017. Progress Note Patient seen and examined and chart reviewed including labs. Transaminases remain same as yesterday. Total bilirubin up a bit today. Having some mild pain at sirgical site today. No nausea or vomiting. Discussed with Dr. Castro, biliary endoscopist as well as primary hospitalist. Will repeat labs tomorrow AM and if LFTs are increasing will need to consider an ERCP. Patient will be NPO after MN tonight just in case.
[2017-09-16] MEDS: HYDROCODONE/ACETAMIN 5/325MG TAB PO PRN (18:52)
--- NOTE | 2017-09-16 19:05 | NUR ---
ID: Patient admitted with transaminitis. Pt is A/O4. Breath sounds clear on room air. VSS. Repots pain at abdomen 8/10. PRN Demerol and [place] given. SL intact to the left SC, receiving intermittent antibiotics. Tolerating a regular diet well. NPO at midnight for possible MRCP tomorrow. Abdominal incisions healing and dry from lap cholecystectomy. IVETT drain intact and draining serosanguineous. Supervision assist out of bed to the bathroom. 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 Neuro, Surgery, and Gastro following. D/C uncertain at this time. Call do and bedside table are within reach. Will continue to monitor.
--- NOTE | 2017-09-16 19:29 | Progress Note ---
Medicine Progress Note Date & Time of Visit: Sep 16, 2017 at 19:28. Subjective Patient complaining of pain in her abdomen, states it is all over her abdomen and constant. Reports pain being worse than before surgery and requesting additional pain medications. No BM. No overnight events noted. Tolerating PO without any difficulty. Denies N/V. Objective Last 8 Hrs Date Time Temp Pulse Resp B/P (MAP) Pulse Ox O2 Delivery O2 Flow Rate FiO2 09/16/17 16:53 90/58 (69) 09/16/17 16:30 Room Air 09/16/17 14:57 37.1 90 18 88/67 (74) 91 Physical Exam: GENERAL: Patient is in no acute distress. HEENT: No acute trauma, normocephalic, mucous membranes moist, no nasal congestion, no scleral icterus conjunctivae clear. NECK: No stridor, trachea is midline. LUNGS: Clear to auscultation bilaterally, no wheeze, no rhonchi, breath sounds equal. HEART: Without murmurs gallops or rubs, regular rate and rhythm. ABDOMEN: Soft, nontender, bowel sounds positive, no hepatosplenomegaly EXTREMITIES: No cyanosis or edema, moving all 4 extremities without pain or difficulty; ROM intact NEUROLOGIC: Oriented x 3, no acute motor or sensory deficits, no focal weakness. SKIN: No rash, no jaundice, no diaphoresis. Laboratory Results: Last 24 Hours Test 09/16/17 06:49 White Blood Count 10.57 K/uL Red Blood Count 4.51 M/uL Hemoglobin 13.5 g/dL Hematocrit 41.5 % Mean Corpuscular Volume 92.0 fL Mean Corpuscular Hemoglobin 29.9 pg Mean Corpuscular Hemoglobin Concent 32.5 g/dl Platelet Count 230 K/uL Mean Platelet Volume 11.8 fL Neutrophils (%) (Auto) 69.9 % Lymphocytes (%) (Auto) 20.7 % Monocytes (%) (Auto) 6.1 % Eosinophils (%) (Auto) 2.8 % Basophils (%) (Auto) 0.2 % Neutrophils # (Auto) 7.39 K/uL Lymphocytes # (Auto) 2.19 K/uL Monocytes # (Auto) 0.64 K/uL Eosinophils # (Auto) 0.30 K/uL Basophils # (Auto) 0.02 K/uL RDW Standard Deviation 48.6 fL RDW Coefficient of Variation 14.4 % Immature Granulocyte % (Auto) 0.3 % Immature Granulocyte # (Auto) 0.03 K/uL Sodium Level 140 mmol/L Potassium Level 3.8 mmol/L Chloride Level 107 mmol/L Carbon Dioxide Level 30 mmol/L Anion Gap 3.0 mmol/L Blood Urea Nitrogen 3 mg/dl Creatinine 0.86 mg/dl Est Creatinine Clear Calc Drug Dose 111.7 ml/min Estimated GFR () 104.3 Estimated GFR (Non- 90.0 BUN/Creatinine Ratio 2.9 Random Glucose 87 mg/dl Calcium Level 8.3 mg/dl Total Bilirubin 2.9 mg/dl Aspartate Amino Transf (AST/SGOT) 255 U/L Alanine Aminotransferase (ALT/SGPT) 287 U/L Alkaline Phosphatase 116 U/L Total Protein 6.0 gm/dl Albumin 2.5 gm/dl Globulin 3.5 gm/dl Albumin/Globulin Ratio 0.7 Assessment & Plan TRANSAMINITIS/ACUTE CHOLECYSTITIS: -patient presented with persistent nausea and vomiting -RUQ US shows acute cholecystitis -hepatitis panel, HIV testing negative -GI consulted, appreciate recs -MRCP negative for choledocholithiasis -Surgery consulted, s/p lap chinyere POD#1 -patient with low BP, hesitant to give IV pain medications, will start norco -NPO after midnight for possible ERCP tomorrow if the bilirubin trends up further per GI RECENT SUBDURAL HEMATOMA: -recently transferred to [facility] and discharged on keppra -per records, it was thought that patient had an unwitnessed seizure leading to head trauma causing the subdural hence the keppra -patient has psychiatric history and Wellbutrin (due to precipitating seizures) and Celexa (due to antiplatelet properties) were discontinued -continued on gabapentin -patient requesting to discontinue Keppra, Neuro consulted and agreed with this and also repeated an EEG which was unremarkable -lower dose wellbutrin resumed as well as celexa MOOD DISORDER: -Psych consulted, appreciate recommendations HX OF PITUITARY TUMOR: -continue bromocriptine -needs outpatient endo follow up Current Inpatient Medications: Current Inpatient Medications Medications (Trade) Dose Ordered Sig/Jesse Route Start Time Stop Time Status Last Admin Dose Admin Ondansetron HCl (Zofran Inj) 4 mg Q6H PRN IV 09/14/17 09:00 10/14/17 08:59 09/15/17 08:28 4 MG Bromocriptine Mesylate (Parlodel Tab) 2.5 mg DAILY PO 09/15/17 09:00 10/15/17 08:59 09/16/17 09:06 2.5 MG Gabapentin (Neurontin Cap) 300 mg TID PO 09/14/17 14:00 10/14/17 13:59 09/16/17 13:43 300 MG Cyanocobalamin (Vitamin B-12 Tab) 1,000 mcg DAILY PO 09/15/17 09:00 10/15/17 08:59 09/16/17 09:07 1,000 MCG Bupropion HCl (Wellbutrin Tab) 75 mg BID PO 09/14/17 21:00 10/14/17 20:59 09/16/17 09:06 75 MG Piperacillin Sod/ Tazobactam Sod (Consult) 1 ea UD PRN N/A 09/14/17 16:00 10/14/17 15:59 Piperacillin Sod/ Tazobactam Sod 3.375 gm/Dextrose 115 ml @ 28.75 mls/ hr Q8H IV 09/15/17 00:00 09/24/17 15:59 09/16/17 16:44 28.75 MLS/HR Meperidine HCl (Demerol Inj) 25 mg Q2H PRN IV 09/15/17 08:15 09/29/17 08:14 09/16/17 16:54 25 MG Lactated Ringer's 1,000 ml @ 100 mls/hr Q10H IV 09/15/17 14:30 10/15/17 14:29 09/16/17 00:07 100 MLS/HR Polyethylene (Miralax Powder Packet) 17 gm DAILY PO 09/16/17 09:00 10/16/17 08:59 09/16/17 10:17 17 GM Docusate Sodium (coLACE CAP) 100 mg BID PO 09/16/17 09:00 10/16/17 08:59 09/16/17 10:17 100 MG Acetaminophen/ Hydrocodone Bitart ([place] 5/325 Tab) 1 tab Q6 PRN PO 09/16/17 18:15 09/30/17 18:14 09/16/17 18:52 1 TAB
[2017-09-17 00:55] VITALS: BP 93/63; PULSE 90
[2017-09-17] MEDS: MEPERIDINE HCL 25 MG/ML CARP IV PRN (05:10)
[2017-09-17] MEDS: LACTATED RINGER'S 1000ML 1,000 ML IV SCH ×2 (06:16→16:30)
[2017-09-17 06:17] LABS: HEMATOCRIT 36.1 % (37-47); HEMOGLOBIN 11.7 g/dL (12.0-16.0); MEAN CELL VOLUME 91.9 fL (80-100); MEAN CORPUSCULAR HEMOGLOBIN 29.8 pg (25-34); MEAN CORPUSCULAR HGB CONC 32.4 g/dl (32-36); MEAN PLATELET VOLUME 11.2 fL (7.4-10.4); PLATELET COUNT 200 K/uL (130-400); RED CELL DISTRIBUTION WIDTH CV 14.7 % (11.5-14.5); RED CELL DISTRIBUTION WIDTH SD 49.9 fL (36.4-46.3); WHITE BLOOD COUNT 9.54 K/uL (4.8-10.8)
[2017-09-17 06:47] LABS: ALBUMIN 2.3 gm/dl (3.4-5.0); CREATININE 0.75 mg/dl (0.60-1.20); POTASSIUM 3.4 mmol/L (3.5-5.1)
[2017-09-17 06:50] LABS: TOTAL PROTEIN 5.6 gm/dl (6.4-8.2)
--- NOTE | 2017-09-17 07:33 | Gastroenterology Progress Note ---
Progress Note Date of Service: Sep 17, 2017 Subjective Pt evaluation today including: conversation w/ patient, physical exam, chart review, lab review, review of studies, review of inpatient medication list Still with some abdominal pain. On [place] for pain. Transaminases trending down. Tbili 2.5 today, down from 2.9 yesterday. Has not had a BM since admission. Review of Systems 12 systems reviewed and negative except as ntoed Medications Current Inpatient Medications Medications (Trade) Dose Ordered Sig/Jesse Route Start Time Stop Time Status Last Admin Dose Admin Ondansetron HCl (Zofran Inj) 4 mg Q6H PRN IV 09/14/17 09:00 10/14/17 08:59 09/15/17 08:28 4 MG Bromocriptine Mesylate (Parlodel Tab) 2.5 mg DAILY PO 09/15/17 09:00 10/15/17 08:59 09/16/17 09:06 2.5 MG Gabapentin (Neurontin Cap) 300 mg TID PO 09/14/17 14:00 10/14/17 13:59 09/16/17 20:56 300 MG Cyanocobalamin (Vitamin B-12 Tab) 1,000 mcg DAILY PO 09/15/17 09:00 10/15/17 08:59 09/16/17 09:07 1,000 MCG Bupropion HCl (Wellbutrin Tab) 75 mg BID PO 09/14/17 21:00 10/14/17 20:59 09/16/17 20:56 75 MG Piperacillin Sod/ Tazobactam Sod (Consult) 1 ea UD PRN N/A 09/14/17 16:00 10/14/17 15:59 Piperacillin Sod/ Tazobactam Sod 3.375 gm/Dextrose 115 ml @ 28.75 mls/ hr Q8H IV 09/15/17 00:00 09/24/17 15:59 09/16/17 23:48 28.75 MLS/HR Meperidine HCl (Demerol Inj) 25 mg Q2H PRN IV 09/15/17 08:15 09/29/17 08:14 09/17/17 05:10 25 MG Lactated Ringer's 1,000 ml @ 100 mls/hr Q10H IV 09/15/17 14:30 10/15/17 14:29 09/17/17 06:16 100 MLS/HR Polyethylene (Miralax Powder Packet) 17 gm DAILY PO 09/16/17 09:00 10/16/17 08:59 09/16/17 10:17 17 GM Docusate Sodium (coLACE CAP) 100 mg BID PO 09/16/17 09:00 10/16/17 08:59 09/16/17 20:58 100 MG Acetaminophen/ Hydrocodone Bitart ([place] 5/325 Tab) 1 tab Q6 PRN PO 09/16/17 18:15 09/30/17 18:14 09/16/17 18:52 1 TAB Objective Vital Signs Date Time Temp Pulse Resp B/P (MAP) Pulse Ox O2 Delivery O2 Flow Rate FiO2 09/17/17 00:55 90 93/63 (73) 09/17/17 00:00 Room Air 09/16/17 23:29 37.1 105 18 92/58 (69) 90 Room Air 09/16/17 19:40 100/69 (79) 09/16/17 16:53 90/58 (69) 09/16/17 16:30 Room Air 09/16/17 14:57 37.1 90 18 88/67 (74) 91 09/16/17 09:27 90 Room Air 09/16/17 07:33 36.7 83 20 109/74 (86) 90 Physical Exam General Appearance: WD/WN, no apparent distress Eyes: normal inspection, PERRL ENT: normal ENT inspection, hearing grossly normal, pharynx normal Neck: supple, no adenopathy, no JVD Respiratory/Chest: chest non-tender, lungs clear, normal breath sounds, no accessory muscle use Cardiovascular: regular rate, rhythm, no edema, no murmur Abdomen: normal bowel sounds, soft, + tenderness Extremities: normal range of motion, non-tender Neurologic/Psych: spiral gear generator II-XII nml as tested, no motor/sensory deficits, alert, normal mood/affect, oriented x 3 Skin: normal color Laboratory Results Last 24 Hours Test 09/17/17 06:01 White Blood Count 9.54 K/uL Red Blood Count 3.93 M/uL Hemoglobin 11.7 g/dL Hematocrit 36.1 % Mean Corpuscular Volume 91.9 fL Mean Corpuscular Hemoglobin 29.8 pg Mean Corpuscular Hemoglobin Concent 32.4 g/dl RDW Standard Deviation 49.9 fL RDW Coefficient of Variation 14.7 % Platelet Count 200 K/uL Mean Platelet Volume 11.2 fL Sodium Level 139 mmol/L Potassium Level 3.4 mmol/L Chloride Level 106 mmol/L Carbon Dioxide Level 27 mmol/L Anion Gap 6.0 mmol/L Blood Urea Nitrogen 3 mg/dl Creatinine 0.75 mg/dl Est Creatinine Clear Calc Drug Dose 128.1 ml/min Estimated GFR () 123.1 Estimated GFR (Non- 106.2 BUN/Creatinine Ratio 3.4 Random Glucose 100 mg/dl Calcium Level 8.0 mg/dl Total Bilirubin 2.5 mg/dl Aspartate Amino Transf (AST/SGOT) 154 U/L Alanine Aminotransferase (ALT/SGPT) 229 U/L Alkaline Phosphatase 115 U/L Total Protein 5.6 gm/dl Albumin 2.3 gm/dl Globulin 3.3 gm/dl Albumin/Globulin Ratio 0.7 Assessment and Plan 32 yo female POD2 s/p cholecystectomy for cholecystitis. No choledocholithiasis on imaging or IOC. Bili remains up but starting to improve. In the setting of the narcotics, would give relistor today. Repeat LFTs tomorrow.
[2017-09-17 07:43] VITALS: BP 95/61; PULSE 92; TEMP 37.4; O2SAT 92
--- NOTE | 2017-09-17 07:51 | Surgery Progress Note ---
Surgery Progress Note Date of Service Sep 17, 2017. Subjective Post OP Day: 2 + complaints (pain not controlled), + ambulating (some), + flatus, + diet (NPO) , No bowel movement, No nausea, No vomiting Objective Vital Signs: Date Time Temp Pulse Resp B/P (MAP) Pulse Ox O2 Delivery O2 Flow Rate FiO2 09/17/17 07:43 37.4 92 18 95/61 (72) 92 09/17/17 00:55 90 93/63 (73) 09/17/17 00:00 Room Air 09/16/17 23:29 37.1 105 18 92/58 (69) 90 Room Air 09/16/17 19:40 100/69 (79) 09/16/17 16:53 90/58 (69) 09/16/17 16:30 Room Air 09/16/17 14:57 37.1 90 18 88/67 (74) 91 09/16/17 09:27 90 Room Air Physical Exam: IVETT drainage (serous, minimal) General Appearance: WD/WN, no apparent distress Head: normocephalic, atraumatic Neck: supple, trachea midline Respiratory/Chest: lungs clear Cardiovascular: regular rate, rhythm Abdomen: normal bowel sounds, non distended, soft, + tenderness Incision(s): clean, dry, intact Laboratory Results: Results Past 24 Hours Test 09/17/17 06:01 Range/Units White Blood Count 9.54 4.8-10.8 K/uL Red Blood Count 3.93 4.2-5.4 M/uL Hemoglobin 11.7 12.0-16.0 g/dL Hematocrit 36.1 37-47 % Mean Corpuscular Volume 91.9 80-100 fL Mean Corpuscular Hemoglobin 29.8 25-34 pg Mean Corpuscular Hemoglobin Concent 32.4 32-36 g/dl RDW Standard Deviation 49.9 36.4-46.3 fL RDW Coefficient of Variation 14.7 11.5-14.5 % Platelet Count 200 130-400 K/uL Mean Platelet Volume 11.2 7.4-10.4 fL Sodium Level 139 136-145 mmol/L Potassium Level 3.4 3.5-5.1 mmol/L Chloride Level 106 98-107 mmol/L Carbon Dioxide Level 27 21-32 mmol/L Anion Gap 6.0 3-11 mmol/L Blood Urea Nitrogen 3 7-18 mg/dl Creatinine 0.75 0.60-1.20 mg/dl Est Creatinine Clear Calc Drug Dose 128.1 ml/min Estimated GFR () 123.1 Estimated GFR (Non- 106.2 BUN/Creatinine Ratio 3.4 10-20 Random Glucose 100 70-99 mg/dl Calcium Level 8.0 8.5-10.1 mg/dl Total Bilirubin 2.5 0.2-1 mg/dl Aspartate Amino Transf (AST/SGOT) 154 15-37 U/L Alanine Aminotransferase (ALT/SGPT) 229 12-78 U/L Alkaline Phosphatase 115 45-117 U/L Total Protein 5.6 6.4-8.2 gm/dl Albumin 2.3 3.4-5.0 gm/dl Globulin 3.3 2.5-4.0 gm/dl Albumin/Globulin Ratio 0.7 0.9-2 Assessment & Plan s/p lap chinyere w/IOC showing contrast only minimally into duodenum -LFTs trending down -pain will switch to morphine PRN; limit as much as possible -diet OK if OK w/GI medicine as it looks like no ERCP planned -IVETT appropriate drainage
[2017-09-17] MEDS ORDERED: MoRPHine SULFATE 4 MG/ML 1 ML CARP\\VIAL IV PRN (08:15)
[2017-09-17] MEDS: PIPERACILL/TAZOBAC IV 3.375 GM in DEXTROSE 5% 100ML IV SCH ×3 (08:32→23:21)
[2017-09-17] MEDS: DOCUSATE SODIUM 100 MG CAP PO SCH ×2 (08:32→21:17)
[2017-09-17] MEDS: GABAPENTIN 300 MG CAP PO SCH ×3 (08:33→20:24)
[2017-09-17] MEDS: BROMOCRIPTINE MESYLATE 2.5 MG TAB PO SCH (08:33)
[2017-09-17] MEDS: CYANOCOBALAMIN 500 MCG TAB (VIT B-12) PO SCH (08:33)
[2017-09-17] MEDS: POLYETHYLENE (MIRALAX) 17 GM PACK PO SCH ×2 (08:34→20:27)
[2017-09-17] MEDS: HYDROCODONE/ACETAMIN 5/325MG TAB PO PRN ×3 (08:37→20:23)
[2017-09-17] MEDS: METHYLNALTREXONE BROMIDE INJ 12 MG/0.6 ML SYR SQ SCH (08:45)
[2017-09-17 15:07] VITALS: BP 92/63; PULSE 84; TEMP 37.2; O2SAT 93
[2017-09-17] MEDS: MoRPHine SULFATE 2 MG/ML CARP IV PRN ×2 (16:57→23:20)
--- NOTE | 2017-09-17 19:12 | PROGRESS NOTE ---
DATE: 09/17/2017 Svetlana looks actually fairly good today. She is visiting with friends and family. She does not seem to be in as much pain from her abdomen. She states that she really has not had headache now for some time and has nothing focal on her neurologic exam. I am not clear what is going on post cholecystectomy. There was a talk of perhaps doing an ERCP today, but apparently this has been held. She is back on lower doses of Wellbutrin and her benzodiazepines and Celexa is going to be restarted relatively soon, I assume. At this point, she probably really does not need another CT for another several weeks. I would modify my recommendations from yesterday then and would recommend only an outpatient noncontrast CT be done in about 3 weeks to 4 weeks' time and we can follow up in neurology for 1-time visit. 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 Mcleod on one instance and probably will be followed up in several months' time. She also sees Dr. Yamel Beavers. This is something that neurology really is not going to follow. The patient requests that I assume this issue for her today, but I illustrated to her that this not my area of expertise. Frankly, she probably only needs a prolactin level drawn on an outpatient basis every year or so and this can be arranged either through A primary care with a followup visit with Dr. Mcleod. I will look at her chart when I see her back for followup of her subdural and if her prolactin has not been done in some time, I will probably obtain a level then, but she really does not need one now in the inpatient setting. Unfortunately, she is really averse to having MRI scans done, so detailed imaging of the pituitary is probably going to be deferred unless of course she would have a bump in a prolactin level, at which point she would need more imaging under sedation. These are decisions that will be made in the future when the endocrine service picks her up. I will sign off the case for now. I will be happy to take another look at her while she is an inpatient if new issues emerge, but for now I feel that she probably never had a seizure and she does need need anticonvulsants and she needs a CT scan in about 3 weeks and neurology will follow up at that point just to check on the images. SEEMA
--- NOTE | 2017-09-17 19:19 | Progress Note ---
Medicine Progress Note Date & Time of Visit: Sep 17, 2017 at 19:14. Subjective Patient reports worsening pain, states she also cannot have a BM and that her abdomen hurts all around her belly button. No overnight events noted. Tolerating PO without difficulty. No N/V. Objective Last 8 Hrs Date Time Temp Pulse Resp B/P (MAP) Pulse Ox O2 Delivery O2 Flow Rate FiO2 09/17/17 15:07 37.2 84 18 92/63 (73) 93 Physical Exam: GENERAL: Patient is in no acute distress. HEENT: No acute trauma, normocephalic, mucous membranes moist, no nasal congestion, no scleral icterus conjunctivae clear. NECK: No stridor, trachea is midline. LUNGS: Clear to auscultation bilaterally, no wheeze, no rhonchi, breath sounds equal. HEART: Without murmurs gallops or rubs, regular rate and rhythm. ABDOMEN: Soft, nontender, bowel sounds positive, no hepatosplenomegaly EXTREMITIES: No cyanosis or edema, moving all 4 extremities without pain or difficulty; ROM intact NEUROLOGIC: Oriented x 3, no acute motor or sensory deficits, no focal weakness. SKIN: No rash, no jaundice, no diaphoresis. Laboratory Results: Last 24 Hours Test 09/17/17 06:01 White Blood Count 9.54 K/uL Red Blood Count 3.93 M/uL Hemoglobin 11.7 g/dL Hematocrit 36.1 % Mean Corpuscular Volume 91.9 fL Mean Corpuscular Hemoglobin 29.8 pg Mean Corpuscular Hemoglobin Concent 32.4 g/dl RDW Standard Deviation 49.9 fL RDW Coefficient of Variation 14.7 % Platelet Count 200 K/uL Mean Platelet Volume 11.2 fL Sodium Level 139 mmol/L Potassium Level 3.4 mmol/L Chloride Level 106 mmol/L Carbon Dioxide Level 27 mmol/L Anion Gap 6.0 mmol/L Blood Urea Nitrogen 3 mg/dl Creatinine 0.75 mg/dl Est Creatinine Clear Calc Drug Dose 128.1 ml/min Estimated GFR () 123.1 Estimated GFR (Non- 106.2 BUN/Creatinine Ratio 3.4 Random Glucose 100 mg/dl Calcium Level 8.0 mg/dl Total Bilirubin 2.5 mg/dl Aspartate Amino Transf (AST/SGOT) 154 U/L Alanine Aminotransferase (ALT/SGPT) 229 U/L Alkaline Phosphatase 115 U/L Total Protein 5.6 gm/dl Albumin 2.3 gm/dl Globulin 3.3 gm/dl Albumin/Globulin Ratio 0.7 Assessment & Plan TRANSAMINITIS/ACUTE CHOLECYSTITIS: -patient presented with persistent nausea and vomiting -RUQ US shows acute cholecystitis -hepatitis panel, HIV testing negative -GI consulted, appreciate recs -MRCP negative for choledocholithiasis -Surgery consulted, s/p lap chinyere POD#2 -pain control PRN, patient reports pain is still severe and has been requesting IV and PO pain meds -LFTs trending down RECENT SUBDURAL HEMATOMA: -recently transferred to [facility] and discharged on keppra -per records, it was thought that patient had an unwitnessed seizure leading to head trauma causing the subdural hence the keppra -patient has psychiatric history and Wellbutrin (due to precipitating seizures) and Celexa (due to antiplatelet properties) were discontinued -continued on gabapentin -patient requesting to discontinue Keppra, Neuro consulted and agreed with this and also repeated an EEG which was unremarkable -lower dose wellbutrin resumed as well as celexa MOOD DISORDER: -Psych consulted, appreciate recommendations HX OF PITUITARY TUMOR: -continue bromocriptine -needs outpatient endo follow up CONSTIPATION: -on miralax + colace -relistor added by GI -added senna as well Current Inpatient Medications: Current Inpatient Medications Medications (Trade) Dose Ordered Sig/Jesse Route Start Time Stop Time Status Last Admin Dose Admin Ondansetron HCl (Zofran Inj) 4 mg Q6H PRN IV 09/14/17 09:00 10/14/17 08:59 09/15/17 08:28 4 MG Bromocriptine Mesylate (Parlodel Tab) 2.5 mg DAILY PO 09/15/17 09:00 10/15/17 08:59 09/17/17 08:33 2.5 MG Gabapentin (Neurontin Cap) 300 mg TID PO 09/14/17 14:00 10/14/17 13:59 09/17/17 14:29 300 MG Cyanocobalamin (Vitamin B-12 Tab) 1,000 mcg DAILY PO 09/15/17 09:00 10/15/17 08:59 09/17/17 08:33 1,000 MCG Bupropion HCl (Wellbutrin Tab) 75 mg BID PO 09/14/17 21:00 10/14/17 20:59 09/17/17 08:33 75 MG Piperacillin Sod/ Tazobactam Sod (Consult) 1 ea UD PRN N/A 09/14/17 16:00 10/14/17 15:59 Piperacillin Sod/ Tazobactam Sod 3.375 gm/Dextrose 115 ml @ 28.75 mls/ hr Q8H IV 09/15/17 00:00 09/24/17 15:59 09/17/17 16:33 28.75 MLS/HR Lactated Ringer's 1,000 ml @ 100 mls/hr Q10H IV 09/15/17 14:30 10/15/17 14:29 09/17/17 06:16 100 MLS/HR Docusate Sodium (coLACE CAP) 100 mg BID PO 09/16/17 09:00 10/16/17 08:59 09/17/17 08:32 100 MG Acetaminophen/ Hydrocodone Bitart ([place] 5/325 Tab) 1 tab Q6 PRN PO 09/16/17 18:15 09/30/17 18:14 09/17/17 13:31 1 TAB Methylnaltrexone [place] (Relistor Inj) 12 mg Q2D SQ 09/17/17 09:00 10/17/17 08:59 09/17/17 08:45 12 MG Morphine Sulfate (MoRPHine SULFATE INJ) 2 mg Q1H PRN IV 09/17/17 07:45 10/01/17 07:44 09/17/17 16:57 2 MG Morphine Sulfate (MoRPHine SULFATE INJ) 4 mg Q1H PRN IV 09/17/17 08:15 10/01/17 08:14 09/17/17 18:50 4 MG Polyethylene (Miralax Powder Packet) 17 gm BID PO 09/17/17 21:00 10/16/17 08:59 Senna (Senokot Tab) 8.6 mg QAM PO 09/18/17 09:00 10/18/17 08:59
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
[2017-09-17] MEDS ORDERED: NICOTINE 14 MG/24 HR TDSY TD ONE (21:11)
[2017-09-17 23:38] VITALS: BP 90/59; PULSE 88; TEMP 36.7; O2SAT 92
--- NOTE | 2017-09-18 01:07 | NUR ---
RACHEL:Dr. Finnegan made aware of pt.'s request for Ativan. Addendum: 09/18/17 at 0109 by Jeanette Ma RN made aware at 0027 via [facility].
[2017-09-18] MEDS: MoRPHine SULFATE 2 MG/ML CARP IV PRN ×6 (01:59→21:53)
[2017-09-18] MEDS ORDERED: LORAZEPAM 0.5 MG TAB PO PRN (02:00)
[2017-09-18] MEDS: LACTATED RINGER'S 1000ML 1,000 ML IV SCH ×3 (03:33→22:30)
[2017-09-18 07:00] VITALS: BP 94/60; PULSE 84; TEMP 36.8; O2SAT 91
[2017-09-18] MEDS: HYDROCODONE/ACETAMIN 5/325MG TAB PO PRN (07:17)
[2017-09-18] MEDS: PIPERACILL/TAZOBAC IV 3.375 GM in DEXTROSE 5% 100ML IV SCH ×2 (07:25→16:31)
--- NOTE | 2017-09-18 07:25 | Surgery Progress Note ---
Surgery Progress Note Date of Service Sep 18, 2017. Subjective Post OP Day: 3 + feeling well (better), + ambulating, + bowel movement, + flatus, No nausea, No vomiting Objective Vital Signs: Date Time Temp Pulse Resp B/P (MAP) Pulse Ox O2 Delivery O2 Flow Rate FiO2 09/18/17 07:00 36.8 84 18 94/60 (71) 91 Room Air 09/18/17 00:19 Room Air 09/17/17 23:38 36.7 88 18 90/59 (69) 92 Room Air 09/17/17 21:00 Room Air 09/17/17 15:07 37.2 84 18 92/63 (73) 93 09/17/17 10:35 Room Air 09/17/17 07:43 37.4 92 18 95/61 (72) 92 Physical Exam: IVETT drainage (slowing) General Appearance: WD/WN, no apparent distress Head: normocephalic, atraumatic Neck: supple, trachea midline Respiratory/Chest: lungs clear Cardiovascular: regular rate, rhythm, no gallop, no murmur Abdomen: normal bowel sounds, non distended, soft, + tenderness Incision(s): clean, dry, intact Extremities: non-tender, no pedal edema Laboratory Results: Results Past 24 Hours Test 09/18/17 06:44 Range/Units Assessment & Plan s/p lap chinyere w/IOC showing contrast only minimally into duodenum -LFTs trending down; await today's reult -pain contolled -ERCP unlikely but await LFTs -IVETT out if no ERCP today s/p lap chinyere w/IOC showing contrast only minimally into duodenum -LFTs trending down -pain will switch to morphine PRN; limit as much as possible -diet OK if OK w/GI medicine as it looks like no ERCP planned -IVETT appropriate drainage
[2017-09-18 07:37] LABS: ALBUMIN 2.2 gm/dl (3.4-5.0); CALCIUM 8.3 mg/dl (8.5-10.1); CREATININE 0.73 mg/dl (0.60-1.20); POTASSIUM 3.8 mmol/L (3.5-5.1)
[2017-09-18 07:44] LABS: TOTAL PROTEIN 5.7 gm/dl (6.4-8.2)
[2017-09-18] MEDS: POLYETHYLENE (MIRALAX) 17 GM PACK PO SCH ×2 (09:14→21:54)
--- NOTE | 2017-09-18 09:14 | Gastroenterology Progress Note ---
Gastroenterology Progress Note Liver enzymes including bili continue to improve. No plan for ERCP. OK to advance diet and discharge when ready from surgical and medicine standpoint. No GI follow up required. 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 Please call qith questions.
[2017-09-18] MEDS: GABAPENTIN 300 MG CAP PO SCH ×3 (09:15→21:56)
[2017-09-18] MEDS: DOCUSATE SODIUM 100 MG CAP PO SCH ×2 (09:15→21:55)
[2017-09-18] MEDS: SENNA 8.6 MG TAB PO SCH (09:16)
[2017-09-18] MEDS: BROMOCRIPTINE MESYLATE 2.5 MG TAB PO SCH (09:17)
[2017-09-18] MEDS: CYANOCOBALAMIN 500 MCG TAB (VIT B-12) PO SCH (09:17)
[2017-09-18] MEDS: NICOTINE 14 MG/24 HR TDSY TD SCH (09:17)
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
[2017-09-18 14:51] VITALS: BP 106/69; PULSE 93; TEMP 37; O2SAT 94
[2017-09-18 16:00] VITALS: O2SAT 95
--- NOTE | 2017-09-18 19:17 | Progress Note ---
Medicine Progress Note Date & Time of Visit: Sep 18, 2017 at 19:16. Subjective Patient doing ok, states her pain is better except where the IVETT drain is. She has not moved her bowels and states the drain makes it difficult for to have a BM because of right sided pain. No overnight events noted. Tolerating PO without difficulty. No N/V. Objective Last 8 Hrs Date Time Temp Pulse Resp B/P (MAP) Pulse Ox O2 Delivery O2 Flow Rate FiO2 09/18/17 16:00 95 Room Air 09/18/17 14:51 37.0 93 18 106/69 (81) 94 Room Air Physical Exam: GENERAL: Patient is in no acute distress. HEENT: No acute trauma, normocephalic, mucous membranes moist, no nasal congestion, no scleral icterus conjunctivae clear. NECK: No stridor, trachea is midline. LUNGS: Clear to auscultation bilaterally, no wheeze, no rhonchi, breath sounds equal. HEART: Without murmurs gallops or rubs, regular rate and rhythm. ABDOMEN: Soft, nontender, bowel sounds positive, no hepatosplenomegaly EXTREMITIES: No cyanosis or edema, moving all 4 extremities without pain or difficulty; ROM intact NEUROLOGIC: Oriented x 3, no acute motor or sensory deficits, no focal weakness. SKIN: No rash, no jaundice, no diaphoresis. Laboratory Results: Last 24 Hours Test 09/18/17 06:44 Sodium Level 141 mmol/L Potassium Level 3.8 mmol/L Chloride Level 107 mmol/L Carbon Dioxide Level 34 mmol/L Anion Gap 0.0 mmol/L Blood Urea Nitrogen 4 mg/dl Creatinine 0.73 mg/dl Est Creatinine Clear Calc Drug Dose 131.6 ml/min Estimated GFR () 127.2 Estimated GFR (Non- 109.7 BUN/Creatinine Ratio 5.5 Random Glucose 85 mg/dl Calcium Level 8.3 mg/dl Total Bilirubin 1.3 mg/dl Aspartate Amino Transf (AST/SGOT) 94 U/L Alanine Aminotransferase (ALT/SGPT) 185 U/L Alkaline Phosphatase 113 U/L Total Protein 5.7 gm/dl Albumin 2.2 gm/dl Globulin 3.5 gm/dl Albumin/Globulin Ratio 0.6 Assessment & Plan TRANSAMINITIS/ACUTE CHOLECYSTITIS: -patient presented with persistent nausea and vomiting -RUQ US shows acute cholecystitis -hepatitis panel, HIV testing negative -GI consulted, appreciate recs, signed off, no plans for ERCP -MRCP negative for choledocholithiasis -Surgery consulted, s/p lap chinyere POD#3 -pain control PRN, patient reports pain is still severe and has been requesting IV and PO pain meds -LFTs still trending down -Surgery to remove the drain likely tomorrow RECENT SUBDURAL HEMATOMA: -recently transferred to [facility] and discharged on keppra -per records, it was thought that patient had an unwitnessed seizure leading to head trauma causing the subdural hence the keppra -patient has psychiatric history and Wellbutrin (due to precipitating seizures) and Celexa (due to antiplatelet properties) were discontinued -continued on gabapentin -patient requesting to discontinue Keppra, Neuro consulted and agreed with this and also repeated an EEG which was unremarkable -lower dose wellbutrin resumed as well as celexa MOOD DISORDER: -Psych consulted, appreciate recommendations HX OF PITUITARY TUMOR: -continue bromocriptine -needs outpatient endo follow up CONSTIPATION: -on miralax + colace -relistor added by GI -added senna as well Current Inpatient Medications: Current Inpatient Medications Medications (Trade) Dose Ordered Sig/Jesse Route Start Time Stop Time Status Last Admin Dose Admin Ondansetron HCl (Zofran Inj) 4 mg Q6H PRN IV 09/14/17 09:00 10/14/17 08:59 09/15/17 08:28 4 MG Bromocriptine Mesylate (Parlodel Tab) 2.5 mg DAILY PO 09/15/17 09:00 10/15/17 08:59 09/18/17 09:17 2.5 MG Gabapentin (Neurontin Cap) 300 mg TID PO 09/14/17 14:00 10/14/17 13:59 09/18/17 12:44 300 MG Cyanocobalamin (Vitamin B-12 Tab) 1,000 mcg DAILY PO 09/15/17 09:00 10/15/17 08:59 09/18/17 09:17 1,000 MCG Bupropion HCl (Wellbutrin Tab) 75 mg BID PO 09/14/17 21:00 10/14/17 20:59 09/18/17 09:17 75 MG Piperacillin Sod/ Tazobactam Sod (Consult) 1 ea UD PRN N/A 09/14/17 16:00 10/14/17 15:59 Piperacillin Sod/ Tazobactam Sod 3.375 gm/Dextrose 115 ml @ 28.75 mls/ hr Q8H IV 09/15/17 00:00 09/24/17 15:59 09/18/17 16:31 28.75 MLS/HR Lactated Ringer's 1,000 ml @ 100 mls/hr Q10H IV 09/15/17 14:30 10/15/17 14:29 09/18/17 12:43 100 MLS/HR Docusate Sodium (coLACE CAP) 100 mg BID PO 09/16/17 09:00 10/16/17 08:59 09/18/17 09:15 100 MG Acetaminophen/ Hydrocodone Bitart ([place] 5/325 Tab) 1 tab Q6 PRN PO 09/16/17 18:15 09/30/17 18:14 09/18/17 07:17 1 TAB Methylnaltrexone Margie (Relistor Inj) 12 mg Q2D SQ 09/17/17 09:00 10/17/17 08:59 09/17/17 08:45 12 MG Morphine Sulfate (MoRPHine SULFATE INJ) 2 mg Q1H PRN IV 09/17/17 07:45 10/01/17 07:44 09/18/17 18:53 2 MG Morphine Sulfate (MoRPHine SULFATE INJ) 4 mg Q1H PRN IV 09/17/17 08:15 10/01/17 08:14 09/17/17 18:50 4 MG Polyethylene (Miralax Powder Packet) 17 gm BID PO 09/17/17 21:00 10/16/17 08:59 09/18/17 09:14 17 GM Senna (Senokot Tab) 8.6 mg QAM PO 09/18/17 09:00 10/18/17 08:59 09/18/17 09:16 8.6 MG Nicotine (Nicoderm Cq 14MG Patch) 1 patch QAM TD 09/18/17 09:00 10/18/17 08:59 09/18/17 09:17 1 PATCH Miscellaneous (Remove Nicoderm Patch) 1 ea HS N/A 09/18/17 21:00 10/18/17 20:59 Lorazepam (Ativan Tab) 0.5 mg BID PRN PO 09/18/17 02:00 10/18/17 01:59 09/18/17 02:02 0.5 MG
--- NOTE | 2017-09-18 19:40 | NUR ---
ID: Pt. independent in room, continues to request Morphine for pain level of a 5. Pt. expresses relief with med. IVETT has scant amount of drainage thus far this shift, dressing is dry and intact. Incisions to abd. are well approximated and without s/s of infection. Pt. is voiding without difficulty. Pt. reports a poor appetite. Taking fluids without difficulty. Pt. continues to have LR at 100 ml/hr. D/C undetermined at this time, will continue to monitor.
[2017-09-18] MEDS ORDERED: NURSING VERBAL MED ORDER ONE (22:45)
--- NOTE | 2017-09-18 23:09 | NUR ---
A: IVETT drained for 15 cc of bloody drainage. No s/s of infection noted Dressing intact to drain site. Surgical incisions are well approximated and without s/s of infection or drainage.
[2017-09-19 00:12] VITALS: BP 97/65; PULSE 81; TEMP 36.8; O2SAT 92
[2017-09-19] MEDS: PIPERACILL/TAZOBAC IV 3.375 GM in DEXTROSE 5% 100ML IV SCH ×2 (00:20→08:44)
[2017-09-19] MEDS: MoRPHine SULFATE 2 MG/ML CARP IV PRN ×3 (03:42→09:15)
--- NOTE | 2017-09-19 07:17 | Anesthesiology Progress Note ---
Anesthesia Post Op Note Date & Time Sep 19, 2017 at 07:16 Vital Signs Pain Intensity: 7 Vital Signs Past 12 Hours Date Time Temp Pulse Resp B/P (MAP) Pulse Ox O2 Delivery O2 Flow Rate FiO2 09/19/17 00:12 36.8 81 16 97/65 (76) 92 Room Air 09/19/17 00:00 Room Air Notes Mental Status: alert / awake / arousable Pt Amnestic to Procedure: Yes Nausea / Vomiting: adequately controlled Pain: improving with treatment Airway Patency, RR, SpO2: stable & adequate BP & HR: stable & adequate Hydration State: stable & adequate Anesthetic Complications: no major complications apparent
[2017-09-19 07:19] LABS: HEMATOCRIT 38.9 % (37-47); HEMOGLOBIN 12.2 g/dL (12.0-16.0); MEAN CELL VOLUME 93.7 fL (80-100); MEAN CORPUSCULAR HEMOGLOBIN 29.4 pg (25-34); MEAN CORPUSCULAR HGB CONC 31.4 g/dl (32-36); MEAN PLATELET VOLUME 11.4 fL (7.4-10.4); PLATELET COUNT 259 K/uL (130-400); RED CELL DISTRIBUTION WIDTH CV 14.8 % (11.5-14.5); RED CELL DISTRIBUTION WIDTH SD 50.6 fL (36.4-46.3); WHITE BLOOD COUNT 8.51 K/uL (4.8-10.8)
[2017-09-19 07:47] VITALS: BP 96/67; PULSE 93; TEMP 36.9; O2SAT 92
[2017-09-19 07:58] LABS: ALBUMIN 2.4 gm/dl (3.4-5.0); CALCIUM 8.6 mg/dl (8.5-10.1); CREATININE 0.71 mg/dl (0.60-1.20); POTASSIUM 3.9 mmol/L (3.5-5.1)
[2017-09-19] MEDS: POLYETHYLENE (MIRALAX) 17 GM PACK PO SCH (08:44)
[2017-09-19] MEDS: CYANOCOBALAMIN 500 MCG TAB (VIT B-12) PO SCH (08:45)
[2017-09-19] MEDS: BROMOCRIPTINE MESYLATE 2.5 MG TAB PO SCH (08:46)
[2017-09-19] MEDS: GABAPENTIN 300 MG CAP PO SCH ×2 (08:46→13:33)
[2017-09-19] MEDS: NICOTINE 14 MG/24 HR TDSY TD SCH (09:13)
[2017-09-19] MEDS: DOCUSATE SODIUM 100 MG CAP PO SCH (09:13)
[2017-09-19] MEDS: SENNA 8.6 MG TAB PO SCH (09:13)
[2017-09-19] MEDS: METHYLNALTREXONE BROMIDE INJ 12 MG/0.6 ML SYR SQ SCH (09:16)
[2017-09-19] MEDS ORDERED: OXYCODONE/ACETAMINOPHEN 5-325 TAB PO PRN ×2 (09:45)
--- NOTE | 2017-09-19 09:47 | Surgery Progress Note ---
Surgery Progress Note Date of Service Sep 19, 2017. Subjective Post OP Day: 4 + diet (regular), No bowel movement, No nausea [place] not working, still taking morphine also Objective Vital Signs: Date Time Temp Pulse Resp B/P (MAP) Pulse Ox O2 Delivery O2 Flow Rate FiO2 09/19/17 07:47 36.9 93 18 96/67 (77) 92 Room Air 09/19/17 07:25 Room Air 09/19/17 00:12 36.8 81 16 97/65 (76) 92 Room Air 09/19/17 00:00 Room Air 09/18/17 16:00 95 Room Air 09/18/17 14:51 37.0 93 18 106/69 (81) 94 Room Air Physical Exam: IVETT drainage (10 cc serous) Abdomen: non distended, soft Incision(s): clean, dry Laboratory Results: Results Past 24 Hours Test 09/19/17 06:34 Range/Units White Blood Count 8.51 4.8-10.8 K/uL Red Blood Count 4.15 4.2-5.4 M/uL Hemoglobin 12.2 12.0-16.0 g/dL Hematocrit 38.9 37-47 % Mean Corpuscular Volume 93.7 80-100 fL Mean Corpuscular Hemoglobin 29.4 25-34 pg Mean Corpuscular Hemoglobin Concent 31.4 32-36 g/dl RDW Standard Deviation 50.6 36.4-46.3 fL RDW Coefficient of Variation 14.8 11.5-14.5 % Platelet Count 259 130-400 K/uL Mean Platelet Volume 11.4 7.4-10.4 fL Sodium Level 141 136-145 mmol/L Potassium Level 3.9 3.5-5.1 mmol/L Chloride Level 107 98-107 mmol/L Carbon Dioxide Level 32 21-32 mmol/L Anion Gap 3.0 3-11 mmol/L Blood Urea Nitrogen 4 7-18 mg/dl Creatinine 0.71 0.60-1.20 mg/dl Est Creatinine Clear Calc Drug Dose 135.3 ml/min Estimated GFR () 131.5 Estimated GFR (Non- 113.5 BUN/Creatinine Ratio 5.5 10-20 Random Glucose 73 70-99 mg/dl Calcium Level 8.6 8.5-10.1 mg/dl Total Bilirubin 0.9 0.2-1 mg/dl Aspartate Amino Transf (AST/SGOT) 53 15-37 U/L Alanine Aminotransferase (ALT/SGPT) 148 12-78 U/L Alkaline Phosphatase 113 45-117 U/L Total Protein 6.0 6.4-8.2 gm/dl Albumin 2.4 3.4-5.0 gm/dl Globulin 3.6 2.5-4.0 gm/dl Albumin/Globulin Ratio 0.7 0.9-2 Assessment & Plan s/p lap chinyere LFTs improving IVETT drainage nonbilious, will remove try Percocet ok for discharge, f/u 2 weeks
--- NOTE | 2017-09-19 10:09 | Discharge Instructions ---
Discharge Instructions Date of Service Sep 19, 2017. Admission Reason for Admission: Transaminitis Discharge Discharge Diagnosis / Problem: laparoscopic cholecystectomy Discharge Goals Goal(s): Decrease discomfort Activity Recommendations Activity Limitations: as noted below Lifting Limitations: no more than 10 pounds Shower/Bathe: no limitations (remove bandage to shower, cover daily until drainage stops (approx 2-3 days)) . Instructions / Follow-Up Instructions / Follow-Up Call [phone] to schedule appt with Dr. Rodriguez Current Hospital Diet Patient's current hospital diet: Regular Diet Discharge Diet Recommended Diet: Regular Diet Procedures Procedures Performed: Laparoscopic Cholecystectomy with Intra-Operative Cholangiogram Pending Studies Studies pending at discharge: no Medical Emergencies . Who to Call and When: Medical Emergencies: If at any time you feel your situation is an emergency, please call 911 immediately. . Non-Emergent Contact Non-Emergency issues call your: Surgeon Call Non-Emergent contact if: you have a fever, temperature is above 101.5, wound has increased drainage, wound has increased redness . "Provider Documentation" section prepared by Alon Valverde. . VTE Core Measure Inpt VTE Proph given/why not?: SCD's
--- NOTE | 2017-09-19 11:30 | NUR ---
A note: Surgical PA pulled patient's IVETT drain, patient was pre-medicated with Percocet. Tolerated procedure well. This RN redressed drain site with post op sponge and silk tape.
[2017-09-19 13:34] VITALS: BP 96/67; PULSE 93; TEMP 36.9; O2SAT 92
--- NOTE | 2017-09-19 13:50 | NUR ---
Case Management- Met with patient in room she was opened due to patient length of stay. Patient lives alone in an apartment. She has approx twelve steps to go up. She is independent with adls using no assistive devices. She still drives. Patient plans to return home on discharge denying needs at this time. CM following
--- NOTE | 2017-09-19 14:35 | Progress Note ---
Medicine Progress Note Date & Time of Visit: Sep 19, 2017 at 14:23. Subjective Pt was seen and examined Lying in bed comfortable with no distress Pt said that she feels good to go home Tolerated diet well Denies any chest pain, palpitation, dizziness and SOB Objective Last 8 Hrs Date Time Temp Pulse Resp B/P (MAP) Pulse Ox O2 Delivery O2 Flow Rate FiO2 09/19/17 13:34 36.9 93 18 92 Room Air 09/19/17 07:47 36.9 93 18 96/67 (77) 92 Room Air 09/19/17 07:25 Room Air Physical Exam: General- No acute distress Head- atraumatic Eyes- PERRL, EOMI ENT- oropharynx clear Neck- supple, no JVD Lungs- clear to auscultation Heart- regular rhythm; no murmur Abdomen- normal bowel sounds, soft Extremities- No calf tenderness Neuro- alert, oriented x 3; PERRL, EOMI Skin- warm & dry Laboratory Results: Last 24 Hours Test 09/19/17 06:34 White Blood Count 8.51 K/uL Red Blood Count 4.15 M/uL Hemoglobin 12.2 g/dL Hematocrit 38.9 % Mean Corpuscular Volume 93.7 fL Mean Corpuscular Hemoglobin 29.4 pg Mean Corpuscular Hemoglobin Concent 31.4 g/dl RDW Standard Deviation 50.6 fL RDW Coefficient of Variation 14.8 % Platelet Count 259 K/uL Mean Platelet Volume 11.4 fL Sodium Level 141 mmol/L Potassium Level 3.9 mmol/L Chloride Level 107 mmol/L Carbon Dioxide Level 32 mmol/L Anion Gap 3.0 mmol/L Blood Urea Nitrogen 4 mg/dl Creatinine 0.71 mg/dl Est Creatinine Clear Calc Drug Dose 135.3 ml/min Estimated GFR () 131.5 Estimated GFR (Non- 113.5 BUN/Creatinine Ratio 5.5 Random Glucose 73 mg/dl Calcium Level 8.6 mg/dl Total Bilirubin 0.9 mg/dl Aspartate Amino Transf (AST/SGOT) 53 U/L Alanine Aminotransferase (ALT/SGPT) 148 U/L Alkaline Phosphatase 113 U/L Total Protein 6.0 gm/dl Albumin 2.4 gm/dl Globulin 3.6 gm/dl Albumin/Globulin Ratio 0.7 Assessment & Plan ACUTE CHOLECYSTITIS: patient presented with persistent nausea and vomiting with elevated liver enzymes RUQ US shows acute cholecystitis S/P Lap chinyere POD # 4 hepatitis panel, HIV testing negative GI consulted, no plans for ERCP MRCP negative for choledocholithiasis Clinically stable OK to discharge home Follow up with surgery in 2 weeks TRANSAMINITIS Mostly related to acute cholecystitis LFTs continue trending down Check LFT in 1 to 2 weeks RECENT SUBDURAL HEMATOMA: recently transferred to [facility] and discharged on keppra per records, it was thought that patient had an unwitnessed seizure leading to head trauma causing the subdural hence the keppra patient has psychiatric history and Wellbutrin (due to precipitating seizures) and Celexa (due to antiplatelet properties) were discontinued continued on gabapentin patient requesting to discontinue Keppra, Neuro consulted and agreed with this and also repeated an EEG which was unremarkable lower dose wellbutrin resumed as well as celexa MOOD DISORDER: Psych consulted, appreciate recommendations HX OF PITUITARY TUMOR: continue bromocriptine needs outpatient endo follow up CONSTIPATION: On miralax + colace Relistor added by GI CODE STATUS FULL CODE Consultants: Surgery Current Inpatient Medications: Current Inpatient Medications Medications (Trade) Dose Ordered Sig/Jesse Route Start Time Stop Time Status Last Admin Dose Admin Ondansetron HCl (Zofran Inj) 4 mg Q6H PRN IV 09/14/17 09:00 10/14/17 08:59 09/15/17 08:28 4 MG Bromocriptine Mesylate (Parlodel Tab) 2.5 mg DAILY PO 09/15/17 09:00 10/15/17 08:59 09/19/17 08:46 2.5 MG Gabapentin (Neurontin Cap) 300 mg TID PO 09/14/17 14:00 10/14/17 13:59 09/19/17 13:33 300 MG Cyanocobalamin (Vitamin B-12 Tab) 1,000 mcg DAILY PO 09/15/17 09:00 10/15/17 08:59 09/19/17 08:45 1,000 MCG Bupropion HCl (Wellbutrin Tab) 75 mg BID PO 09/14/17 21:00 10/14/17 20:59 09/19/17 08:45 75 MG Piperacillin Sod/ Tazobactam Sod (Consult) 1 ea UD PRN N/A 09/14/17 16:00 10/14/17 15:59 Piperacillin Sod/ Tazobactam Sod 3.375 gm/Dextrose 115 ml @ 28.75 mls/ hr Q8H IV 09/15/17 00:00 09/24/17 15:59 09/19/17 08:44 28.75 MLS/HR Docusate Sodium (coLACE CAP) 100 mg BID PO 09/16/17 09:00 10/16/17 08:59 09/19/17 09:13 100 MG Methylnaltrexone Roland (Relistor Inj) 12 mg Q2D SQ 09/17/17 09:00 10/17/17 08:59 09/19/17 09:16 12 MG Morphine Sulfate (MoRPHine SULFATE INJ) 2 mg Q1H PRN IV 09/17/17 07:45 10/01/17 07:44 09/19/17 09:15 2 MG Morphine Sulfate (MoRPHine SULFATE INJ) 4 mg Q1H PRN IV 09/17/17 08:15 10/01/17 08:14 09/17/17 18:50 4 MG Polyethylene (Miralax Powder Packet) 17 gm BID PO 09/17/17 21:00 10/16/17 08:59 09/19/17 08:44 17 GM Senna (Senokot Tab) 8.6 mg QAM PO 09/18/17 09:00 10/18/17 08:59 09/19/17 09:13 8.6 MG Nicotine (Nicoderm Cq 14MG Patch) 1 patch QAM TD 09/18/17 09:00 10/18/17 08:59 09/19/17 09:13 1 PATCH Miscellaneous (Remove Nicoderm Patch) 1 ea HS N/A 09/18/17 21:00 10/18/17 20:59 09/18/17 21:54 1 EA Lorazepam (Ativan Tab) 0.5 mg BID PRN PO 09/18/17 02:00 10/18/17 01:59 09/18/17 02:02 0.5 MG Oxycodone/ Acetaminophen (Percocet 5-325mg Tab) 1 tab Q4H PRN PO 09/19/17 09:45 10/03/17 09:44 Oxycodone/ Acetaminophen (Percocet 5-325mg Tab) 2 tab Q4H PRN PO 09/19/17 09:45 10/03/17 09:44 09/19/17 10:13 2 TAB
[2017-09-19] MEDS ORDERED: CLC100 PO (14:58)
[2017-09-19] MEDS ORDERED: WLL75 PO (14:58)
[2017-09-19] MEDS ORDERED: RXC5 PO (14:58)
--- NOTE | 2017-09-19 15:07 | Discharge Instructions ---
Discharge Instructions Date of Service Sep 19, 2017. Admission Reason for Admission: Transaminitis Discharge Discharge Diagnosis / Problem: Acute cholecystitis, Transaminitis Discharge Goals Goal(s): Decrease discomfort, Improve function, Improve disease control Activity Recommendations Activity Limitations: resume your previous activity (as tolerated) . Instructions / Follow-Up Instructions / Follow-Up Follow up with appointment with Primary care provider Dr. Zafar in [place] on 09/26 @ 2PM Call [phone] to schedule appt with surgery Dr. Rodriguez in 1-2 weeks Follow up with neurology for the subdural hematoma You will need a CT head in 3 -[address] or operate any machine after taking the oxycodone Please hold the oxycodone for drowsiness and lethargy Do not take the lorazepam and oxycodone at the same time. Celexa can start once liver enzymes back to normal Check Liver enzyme in 1 to 2 weeks Current Hospital Diet Patient's current hospital diet: Regular Diet Discharge Diet Recommended Diet: Regular Diet Procedures Procedures Performed: Laparoscopic Cholecystectomy with Intra-Operative Cholangiogram Pending Studies Studies pending at discharge: no Medical Emergencies . Who to Call and When: Medical Emergencies: If at any time you feel your situation is an emergency, please call 911 immediately. . Non-Emergent Contact Non-Emergency issues call your: Primary Care Provider Call Non-Emergent contact if: your pain is not controlled, wound has increased drainage, you have any medication questions . . "Provider Documentation" section prepared by Jonathan Ontiveros. . VTE Core Measure Inpt VTE Proph given/why not?: SCD's [place] Drug Monitoring Program Search Results: no issues identified
--- NOTE | 2017-09-19 15:40 | NUR ---
A:/Patient alert and oriented x4 stable. Patient anxious for discharge home refused a full assessment. Scripts given x3 and script for labs. No questions or concerns. Previous nurse did discharge I printed and went over with patient. Patient stable upon discharge. Refused to have a volunteer take to entrance. Left with friend. Aware of importance and reason for
--- NOTE | 2017-09-19 15:48 | PROGRESS NOTE ---
DATE: 09/19/2017 SUBJECTIVE: Svetlana jhaveri is being discharged today. Her cholecystectomy went well, did not have any unexpected complications and she is being scheduled to have a CT scan in several weeks' time and I will see her back in followup after that. 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 Again, we are not going to need imaging studies such as MRI unless her prolactin level would bump and these decisions would have to be made entirely by endocrinology. For now, then again, I do not think this woman ever had a seizure. She certainly has a small subdural, this could have occurred during her viral illness with coughing and be due to rupture of a small cortical vein and I think will probably resolve or may actually at this point have resolved entirely, on imaging studies and clinically she really has no signs or symptoms thereof and the headache that she had initially, is now resolved.
[2017-09-19 22:34] LABS: ANA SCREEN TC 249X NEGATIVE (NEGATIVE); HERPES SIMPLEX AB IGG-2 >23.00 INDEX (< 0.90); PARVOVIRUS IgM INDEX 0.3 (<0.9)
--- NOTE | 2017-09-20 08:10 | Discharge Summary ---
Discharge Summary Date of Service Sep 20, 2017. Discharge Summary Admission Date: Sep 14, 2017 at 08:52 Discharge Date: Sep 19, 2017 Discharge Disposition: Home Principal Diagnosis: ACUTE CHOLECYSTITIS Secondary Diagnoses/Problems: TRANSAMINITIS RECENT SUBDURAL HEMATOMA: MOOD DISORDER HX OF PITUITARY TUMOR CONSTIPATION Procedures: Laparoscopic Cholecystectomy with Intra-Operative Cholangiogram INTRAOPERATIVE CHOLANGIOGRAM HISTORY: Post cholecystectomy. FLUOROSCOPY TIME: 21 seconds. 12 fluoroscopic spot images of the right upper quadrant. FINDINGS: Fluoroscopy was provided for an intraoperative cholangiogram status post cholecystectomy. Contrast was injected through the cystic duct remnant. Only a trickle of contrast extends into the bowel. There is mild to moderate intra and and hepatic bile duct dilatation. IMPRESSION: Fluoroscopy provided for an intraoperative cholangiogram status post cholecystectomy. Mild to moderate intra and extrahepatic bile duct dilatation to the level of the ampulla. Only a trickle of contrast extends into the small bowel. Therefore, this could be due to stricture/spasm of the ampulla versus an obstructing stone. However, there is no definite filling defect identified within the distended common bile duct to suggest a stone. Electronically signed by: Roly Montaño M.D. 09/15/2017 2:15 PM Dictated Date/Time: 09/15/2017 2:12 PM [~ rep ct add3]] MRCP CLINICAL HISTORY: 32 years-old Female presenting with r/o choledocholithiasis. TECHNIQUE: Multisequence, multiplanar MR imaging of the abdomen was performed without the use of intravenous contrast. IV contrast: None. COMPARISON: Ultrasound performed earlier the same day. FINDINGS: Localizer images: Unremarkable. Lung bases: Minimal dependent changes likely atelectasis. Normal heart size. Trace left pleural effusion. No pericardial effusion. Liver: Normal morphology. Normal hepatic fat fraction (less than 5%). Biliary: Conventional intrahepatic biliary bifurcation. Mild intrahepatic and extra hepatic biliary ductal dilatation. The common duct measures 8 mm in the midportion with smooth tapering to the ampulla of Vater. No convincing evidence of a filling defect in the common duct to suggest choledocholithiasis. The gallbladder is distended and thick-walled. Mild pericholecystic inflammatory change. A gallstone is noted at the gallbladder neck. Conventional insertion of the cystic duct into the hepatic duct. Pancreas: Normal noncontrast appearance. Spleen: Normal noncontrast appearance. Adrenal glands: Normal noncontrast appearance. Kidneys and ureters: Normal noncontrast appearance. No hydronephrosis. Normal ureters. Bowel: Normal. No bowel obstruction. Peritoneal cavity: No free fluid or intraperitoneal gas. Lymph nodes: No gross lymphadenopathy allowing for noncontrast technique. Vasculature: Normal noncontrast appearance. Abdominal wall: Normal. Musculoskeletal: Benign hemangioma suggested in the T10 vertebral body. Nonspecific subcutaneous edema in the lumbar region. IMPRESSION: 1. Findings remain suspicious for acute cholecystitis. No evidence of choledocholithiasis. Surgical consultation recommended. The report will be called/faxed according to standard departmental protocol. Electronically signed by: Adolfo Dotson M.D. 09/14/2017 10:06 PM Dictated Date/Time: 09/14/2017 10:00 PM Consultations: Surgery Medication Reconciliation New Medications: Oxycodone HCl (Oxycodone HCl) 5 Mg Tab 1 TAB PO Q12H PRN for Pain for 5 Days, #10 hold for drowsiness Bupropion HCl (Bupropion HCl) 75 Mg Tab 75 MG PO BID for 30 Days, #60 TAB Docusate Sodium (Docusate Sodium) 100 Mg Cap 100 MG PO BID for Constipation for 7 Days, #14 CAP Continued Medications: Bromocriptine Mesylate (Bromocriptine Mesylate) 2.5 Mg Tab 2.5 MG PO DAILY Cyanocobalamin (Vitamin B 12) 250 Mcg Blaise 1000 MCG PO DAILY Gabapentin (Gabapentin) 300 Mg Cap 300 MG PO TID Discontinued Medications: Levetiracetam (Keppra) 250 Mg Tab 500 MG PO BID, TAB Admission Information HPI (per Admitting provider): 32 year old female who presents to the ED with nausea and vomiting. Patient was recently seen in [facility] ED on 09/05 when she presented with altered mental status and headache. She was found to have a small subdural hematoma. Patient had denied any trauma. She was transferred to [facility] for further management. Per review of records, it was suspected that patient may have had an unwitnessed seizure causing head trauma. She was taken off of her citalopram, lorazepam, and bupropion and started on B12 and Keppra and continued on her gabapentin (however patient reports she has not been taking this). Patient reports feeling poorly since her admission. She has had persistent nausea and vomiting. She has been unable to keep anything down. She has had some lower abdominal pain. She denies diarrhea and actually has not had a bowel movement for a few days. She reports fever and chills but did not take her temperature at home. She has lightheadedness and dizziness but denies any syncopal events. No seizure like activity. She denies chest pain, shortness of breath, or palpitations. She reports her urine has been dark but denies other urinary symptoms. In the ER, patient's labs demonstrate a transaminitis. No imaging was preformed. Other labs are unremarkable. She is hemodynamically stable. Physical Exam (per Admitting): General Appearance: WD/WN, no apparent distress Head: normocephalic, atraumatic Eyes: normal inspection, EOMI, sclerae normal ENT: hearing grossly normal, + pertinent finding (mucous membranes moist) Neck: supple, no JVD, trachea midline Respiratory/Chest: lungs clear, normal breath sounds, no respiratory distress Cardiovascular: regular rate, rhythm, no edema, normal peripheral pulses Abdomen/GI: normal bowel sounds, soft, no organomegaly, + tenderness (mild, lower abdominal ) Extremities/Musculoskelatal: normal inspection, no calf tenderness, normal capillary refill Neurologic/Psych: no motor/sensory deficits, alert, normal mood/affect, oriented x 3 Skin: normal color, warm/dry Hospital Course ACUTE CHOLECYSTITIS: patient presented with persistent nausea and vomiting with elevated liver enzymes RUQ US shows acute cholecystitis S/P Lap chinyere POD # 4 hepatitis panel, HIV testing negative GI consulted, no plans for ERCP MRCP negative for choledocholithiasis Clinically stable OK to discharge home Follow up with surgery in 2 weeks TRANSAMINITIS Mostly related to acute cholecystitis LFTs continue trending down Check LFT in 1 to 2 weeks RECENT SUBDURAL HEMATOMA: recently transferred to [facility] and discharged on keppra per records, it was thought that patient had an unwitnessed seizure leading to head trauma causing the subdural hence the keppra patient has psychiatric history and Wellbutrin (due to precipitating seizures) and Celexa (due to antiplatelet properties) were discontinued continued on gabapentin patient requesting to discontinue Keppra, Neuro consulted and agreed with this and also repeated an EEG which was unremarkable lower dose wellbutrin resumed as well as celexa MOOD DISORDER: Psych consulted, appreciate recommendations HX OF PITUITARY TUMOR: continue bromocriptine needs outpatient endo follow up CONSTIPATION: On miralax + colace Relistor added by GI CODE STATUS FULL CODE Total time spent on discharge = 35 minutes This includes examination of the patient, discharge planning, medication reconciliation, and communication with other providers. Discharge Instructions Discharge Instructions Date of Service Sep 19, 2017. Admission Reason for Admission: Transaminitis Discharge Discharge Diagnosis / Problem: Acute cholecystitis, Transaminitis Discharge Goals Goal(s): Decrease discomfort, Improve function, Improve disease control Activity Recommendations Activity Limitations: resume your previous activity (as tolerated) . Instructions / Follow-Up Instructions / Follow-Up Follow up with appointment with Primary care provider Dr. Zafar in [place] on 09/26 @ 2PM Call [phone] to schedule appt with surgery Dr. Rodriguez in 1-2 weeks Follow up with neurology for the subdural hematoma You will need a CT head in 3 -[address] or operate any machine after taking the oxycodone Please hold the oxycodone for drowsiness and lethargy Do not take the lorazepam and oxycodone at the same time. Celexa can start once liver enzymes back to normal Check Liver enzyme in 1 to 2 weeks Current Hospital Diet Patient's current hospital diet: Regular Diet Discharge Diet Recommended Diet: Regular Diet Procedures Procedures Performed: Laparoscopic Cholecystectomy with Intra-Operative Cholangiogram Pending Studies Studies pending at discharge: no Medical Emergencies . Who to Call and When: Medical Emergencies: If at any time you feel your situation is an emergency, please call 911 immediately. . Non-Emergent Contact Non-Emergency issues call your: Primary Care Provider Call Non-Emergent contact if: your pain is not controlled, wound has increased drainage, you have any medication questions . . "Provider Documentation" section prepared by Jonathan Ontiveros. . VTE Core Measure Inpt VTE Proph given/why not?: SCD's [place] Drug Monitoring Program Search Results: no issues identified Additional Copies To Gerald Zafar M.D. (MEDICAL) Yamel Beavers D.O.
[2018-03-16] MEDS ORDERED: OMEP40CA41 PO (13:18)
== END 2017-09-19 15:40 | disposition home or self-care (01) | DRG 419 ==
LOC: C.EDB 03:34 → EEVIPCON 08:52 → C.MS2W 08:52 → EDBEDREQSVC 09:35 → ENRESERV 09:52
PROVIDERS: ADMIT Internal Medicine; ATTEND Internal Medicine
PROC: 0FT44ZZ Resection of Gallbladder, Percutaneous Endoscopic Approach (ICD-10-PCS; principal; 2017-09-15 11:30)
DX: K80.00 Calculus of gallbladder with acute cholecystitis without obstruction (principal); F17.200 Nicotine dependence, unspecified, uncomplicated; R74.0 Nonspecific elevation of levels of transaminase and lactic acid dehydrogenase [LDH]; F39 Unspecified mood [affective] disorder; R51 Headache; F32.9 Major depressive disorder, single episode, unspecified; F31.9 Bipolar disorder, unspecified; Z83.3 Family history of diabetes mellitus; X58.XXXA Exposure to other specified factors, initial encounter; Z81.1 Family history of alcohol abuse and dependence; K59.00 Constipation, unspecified

== ENCOUNTER 2017-09-21 04:50 | Emergency (ER) | payer OTHER ==
[~2017-09-21] VITALS: Ht 170.2 cm; Wt 95.6 kg
[~2017-09-21 04:50] MED LIST changes: -ATV1 PO; -CITA40TA4 PO; +CLC100 PO; +CYAN1LOZ2 PO; -GABA-1219 PO; +GABA1CAP4 PO; +RXC5 PO; +WLL75 PO; -WLLSR150 PO
[2017-09-21 04:55] VITALS: Ht 170.2 cm; Wt 95.6 kg
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
[2017-09-21] MEDS ORDERED: OPTIRAY 320 IV PRN (05:15)
[2017-09-21 05:32] LABS: BASO % 0.3 %; BASO ABS # 0.04 K/uL (0-0.2); EOS % 2.6 %; HEMATOCRIT 42.4 % (37-47); HEMOGLOBIN 13.9 g/dL (12.0-16.0); IG# 0.03 K/uL (0.00-0.02); LYMPH % 18.7 %; LYMPH ABS # 2.14 K/uL (1.2-3.4); MEAN CELL VOLUME 91.6 fL (80-100); MEAN CORPUSCULAR HGB CONC 32.8 g/dl (32-36); MEAN PLATELET VOLUME 10.9 fL (7.4-10.4); MONO % 3.8 %; MONO ABS # 0.44 K/uL (0.11-0.59); NEUT % 74.3 %; NEUT ABS # 8.49 K/uL (1.4-6.5); PLATELET COUNT 294 K/uL (130-400); RED CELL DISTRIBUTION WIDTH CV 14.7 % (11.5-14.5); RED CELL DISTRIBUTION WIDTH SD 49.2 fL (36.4-46.3); WHITE BLOOD COUNT 11.44 K/uL (4.8-10.8)
[2017-09-21 05:50] LABS: ALBUMIN 2.9 gm/dl (3.4-5.0); CALCIUM 8.8 mg/dl (8.5-10.1); CREATININE 0.76 mg/dl (0.60-1.20); POTASSIUM 3.8 mmol/L (3.5-5.1)
[2017-09-21 05:52] LABS: TOTAL PROTEIN 7.3 gm/dl (6.4-8.2)
[2017-09-21 07:18] VITALS: TEMP 36.6
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
[2017-09-21] MEDS ORDERED: ACETAMINOPHEN 325 MG TAB PO STA (08:03)
[2017-09-21] MEDS ORDERED: AZITHROMYCIN 250 MG TAB PO ONE (08:15)
[2017-09-21] MEDS ORDERED: CEFTRIAXONE SOD 350MG/ML 1 GM VIAL IM ONE (08:15)
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
[2017-09-21 09:30] VITALS: BP 139/83; PULSE 86; O2SAT 96
== END 2017-09-21 09:30 | disposition home or self-care (01) ==
LOC: EDBD 04:50 → C.EDB 04:51
DX: R10.9 Unspecified abdominal pain (principal); M25.551 Pain in right hip; T74.21XA Adult sexual abuse, confirmed, initial encounter; Z90.49 Acquired absence of other specified parts of digestive tract; Y07.03 Male partner, perpetrator of maltreatment and neglect; Z87.891 Personal history of nicotine dependence; Z81.1 Family history of alcohol abuse and dependence